=== PATIENT | female | born 1965 | race Caucasian/White ===

== ENCOUNTER 2017-06-24 10:42 | Inpatient (IN) | payer SELFPAY ==
[~2017-06-24] VITALS: Ht 170.2 cm; Wt 79.1 kg
[2017-06-24] VITALS (20 sets, daily range): BP systolic 59–153; BP diastolic 35–94; PULSE 58–107; RESP 16–20; TEMP 99–99.8; O2SAT 97–100
[~2017-06-24 10:42] MED LIST: ATROPINE SULFATE 1 MG/10 ML SYRINGE IV ONE; CALCIUM CHLORIDE 10% SOLN 1 GRAM/10 ML SYR IV ONE; EPINEPHrine HCL (1:10,000) 1 MG/10 ML SYRINGE IV ONE; MAGNESIUM SULFATE 40 MEQ/10 ML VIAL IV ONE; NALOXONE HCL 4 MG/10 ML MDV IV ONE; NOREPINEPHRINE 4 MG/4 ML AMP IV ONE
[2017-06-24] MEDS ORDERED: SUCCINYLCHOLINE CHLORIDE 200 MG/10 ML VIAL ONE (10:54)
[2017-06-24] MEDS ORDERED: SODIUM CHLORIDE 0.9% FLUSH 5 ML FLUSH IV FLUSH PRN (11:15)
[2017-06-24] MEDS ORDERED: EPINEPHrine HCL (1:1000) 1 MG/ML VIAL ONE (11:29)
[2017-06-24] MEDS ORDERED: TERBUTALINE INJ 1 MG/ML AMP SQ PRN (11:45)
[2017-06-24] MEDS ORDERED: SUCCINYLCHOLINE CHLORIDE 100 MG/5 ML SYRINGE IV PUSH ONE (11:45)
[2017-06-24] MEDS ORDERED: EPINEPHrine (1:1000) INJ 2 MG in DEXTROSE 5% IN WATER INJ 250 ML IV PRN ×2 (11:45)
[2017-06-24] MEDS ORDERED: NOREPINEPHRINE-DEXTROSE DRIP 250 ML IV PRN (11:45)
--- NOTE | 2017-06-24 11:58 | RADRPT ---
EXAM DATE/TIME: 06/24/2017 11:38 [facility] COMPARISON: No previous studies available for comparison. INDICATIONS : ET tube placement. Right central line placement. Full code. MEDICAL HISTORY : Myocardial infarction. SURGICAL HISTORY : Pacemaker. ENCOUNTER: Initial ACUITY: 1 day PAIN SCORE: Non-responsive. LOCATION: Chest FINDINGS: The endotracheal tube appears to be in good position overlying the tracheal air shadow. The tip is at the level of the thoracic aortic arch. There is a right-sided central line in place. There is an NG tube in the stomach. There is no evidence of pneumothorax. The lungs are grossly clear. The heart siz e is mildly enlarged. There is a pacemaker overlying the left chest. The bony structures are grossly intact. CONCLUSION: 1. The endotracheal tube and right central line appear to be in good position. 2. No evidence of pneumothorax. Mitch Liang MD on June 24, 2017 at 11:55 Board Certified Radiologist. This report was verified electronically.
[2017-06-24 12:00] LABS: AUTOMATED NEUTROPHIL # 14.5 TH/MM3 (1.8-7.7); BASOPHIL % 0.2 % (0.0-2.0); EOSINOPHIL # 0.1 TH/MM3 (0-0.4); EOSINOPHIL % 0.4 % (0.0-4.0); HEMO FLAGS DIFF FINAL; LYMPH % 23.4 % (9.0-44.0); LYMPHOCYTE # 4.6 TH/MM3 (1.0-4.8); MEAN CELL VOLUME 96.3 FL (80.0-100.0); MEAN CORPUSCULAR HEMOGLOBIN 30.6 PG (27.0-34.0); MEAN CORPUSCULAR HGB CONC 31.8 % (32.0-36.0); MONO % 1.9 % (0.0-8.0); NEUT % 74.1 % (16.0-70.0); PLATELET COUNT 341 TH/MM3 (150-450); RED BLOOD COUNT 3.53 MIL/MM3 (4.00-5.30); RED CELL DISTRIBUTION WIDTH 12.5 % (11.6-17.2); WHITE BLOOD COUNT 19.5 TH/MM3 (4.0-11.0)
[2017-06-24 12:09] LABS: BLOOD GAS BASE EXCESS -8.5 mmol/L (-2-2); BLOOD GAS CARBOXYHEMOGLOBIN 0.7 % (0-4); BLOOD GAS HCO3 18 mmol/L (22-26); BLOOD GAS METHEMOGLOBIN 0.8 % (0-2); BLOOD GAS O2 HGB SATURATION 98 % (90-100); BLOOD GAS PCO2 47 mmHg (38-42); BLOOD GAS PO2 183 mmHG (61-120); BLOOD GAS TOTAL HGB 11.4 G/DL (12.0-16.0); TEMP CORR TO 98.6
[2017-06-24 12:10] LABS: CRITICAL VALUE YES; DRAW SITE LT RADIAL; FIO2 100 %; OXYGEN DEVICE VENTILATOR; VENT SETTINGS PRVC/AC
[2017-06-24 12:11] LABS: APTT (PATIENT) 21.2 SEC (24.3-30.1); PROTHROMBIN TIME - PATIENT 11.4 SEC (9.8-11.6)
[2017-06-24 12:11] LABS: NUMBER OF ARTERIAL PUNCTURES 1; STAT NO; ULNAR PULSE PRESENT
[2017-06-24] MEDS ORDERED: VANCOMYCIN INJ 1,250 MG in SODIUM CHLOR 0.9% 250 ML INJ 250 ML IV ONE (12:15)
[2017-06-24] MEDS ORDERED: PIPERACIL-TAZO 3.375 GM PREMIX 50 ML IV ONE (12:15)
[2017-06-24 12:36] LABS: ACETAMINOPHEN 3.3 MCG/ML (10.0-30.0); ALCOHOL LESS THAN 3 MG/DL (0-5); ALKALINE PHOSPHATASE 131 U/L (45-117); ALT (GPT) 151 U/L (10-53); ANION GAP 18 MEQ/L (5-15); AST (GOT) 294 U/L (15-37); BICARBONATE 16.7 MEQ/L (21.0-32.0); BLOOD UREA NITROGEN 18 MG/DL (7-18); CHLORIDE 108 MEQ/L (98-107); CREATINE KINASE 256 U/L (26-192); GLOMERULAR FILTRATION RATE 37 ML/MIN (>89); POTASSIUM 4.1 MEQ/L (3.5-5.1); SODIUM (NA) 143 MEQ/L (136-145); TOTAL BILIRUBIN ADULT 0.3 MG/DL (0.2-1.0)
[2017-06-24 13:05] LABS: CKMB 4.4 NG/ML (0.5-3.6)
--- NOTE | 2017-06-24 13:12 | RADRPT ---
EXAM DATE/TIME: 06/24/2017 12:48 [facility] COMPARISON: No previous studies available for comparison. INDICATIONS : Unresponsive status post seizure. RADIATION DOSE: 56.35 CTDIvol (mGy) MEDICAL HISTORY : Non-responsive. SURGICAL HISTORY : Non-responsive. ENCOUNTER: Initial ACUITY: 1 day PAIN SCALE: Non-responsive LOCATION: cranial TECHNIQUE: Multiple contiguous axial images were obtained of the head. Using automated exposure control and adj ustment of the mA and/or kV according to patient size, radiation dose was kept as low as reasonably a chievable to obtain optimal diagnostic quality images. DICOM format image data is available electro nically for review and comparison. FINDINGS: CEREBRUM: Encephalomalacia right parietal lobe with some cortical laminar necrosis consistent with old infarct. The ventricles are normal for age. No evidence of midline shift, mass lesion, hemorrhage or acute i nfarction. No extra-axial fluid collections are seen. POSTERIOR FOSSA: The cerebellum and brainstem are intact. The 4th ventricle is midline. The cerebellopontine angle i s unremarkable. EXTRACRANIAL: The visualized portion of the orbits is intact. SKULL: The calvaria is intact. No evidence of skull fracture. CONCLUSION: 1. 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 2. No acute hemorrhage. Rosas Salmon MD on June 24, 2017 at 13:05 Board Certified Radiologist. This report was verified electronically.
--- NOTE | 2017-06-24 13:31 | PD ---
HPI Chief Complaint: Code Blue Time Seen by Provider: 11:08 Travel History International Travel<30 days: No Contact w/Intl Traveler<30days: No History of Present Illness HPI Patient is a female in her 50s brought in by EMS in full cardiac arrest, CPR in progress. Per EMS, they were called for a seizure. Patient has history of seizures. EMS states they gave 2 mg of Ativan to stop the active seizure at this time, the patient went into cardiac arrest. ACLS was initiated by EMS. She received 3 doses of epinephrine and a dose of bicarbonate by EMS prior to arrival, with no change in her condition. EMS states they began ACLS protocol around 1010, with arrival to the emergency department around 1040. [facility] Past Medical History Medical History: Unable to Obtain Tetanus Vaccination: Unknown ?: Unknown Past Surgical History Surgical History: Unable to Obtain Social History Tobacco Use: No Allergies-Medications (Allergen,Severity, Reaction): Coded Allergies: No Allergy Information Available (Unverified , 06/24/17) Patient unresponsive Review of Systems ROS Limitations: Unresponsive Physical Exam Exam Limitations: Clinical Condition Narrative GENERAL: Unresponsive SKIN: Focused skin assessment warm/dry. No signs of trauma. HEAD: Atraumatic. Normocephalic. EYES: Pupils fixed and dilated. ENT: Mucous membranes pink and moist. NECK: Trachea midline. No JVD. CARDIOVASCULAR: Absent pulse RESPIRATORY: No accessory muscle use. Clear to auscultation. Breath sounds equal bilaterally. GASTROINTESTINAL: Abdomen soft, nondistended. MUSCULOSKELETAL: No obvious deformities. No clubbing. No cyanosis. No edema. Data Data Last Documented VS Vital Signs Date Time Temp Pulse Resp B/P (MAP) Pulse Ox O2 Delivery O2 Flow Rate FiO2 06/24/17 13:15 94 16 144/89 (107) 100 Ventilator 90 06/24/17 12:14 99.6 Orders Orders Succinylcholine Inj (Quelicin Inj) (06/24/17 10:54) Electrocardiogram (06/24/17 11:08) Ammonia (06/24/17 11:08) Complete Blood Count With Diff (06/24/17 11:08) Comprehensive Metabolic Panel (06/24/17 11:08) Creatine Kinase (Cpk) (06/24/17 11:08) Prothrombin Time / Inr (Pt) (06/24/17 11:08) Act Partial Throm Time (Ptt) (06/24/17 11:08) Troponin I (06/24/17 11:08) Urinalysis - C+S If Indicated (06/24/17 11:08) Lactic Acid Sepsis Protocol (06/24/17 11:08) Blood Culture (06/24/17 11:08) Chest, Single Ap (06/24/17 11:08) Ct Brain W/O Iv Contrast(Rout) (06/24/17 11:08) Blood Glucose (06/24/17 11:08) Ecg Monitoring (06/24/17 11:08) Iv Access Insert/Monitor (06/24/17 11:08) Oximetry (06/24/17 11:08) Urinary Catheter Insert/Apply (06/24/17 11:08) Sodium Chloride 0.9% Flush (Ns Flush) (06/24/17 11:15) Drug Screen, Random Urine (06/24/17 11:08) Alcohol (Ethanol) (06/24/17 11:08) Tylenol (Acetaminophen) (06/24/17 11:08) Salicylates (Aspirin) (06/24/17 11:08) Epinephrine (1:1000) Inj (Adrenalin (1:1 (06/24/17 11:29) Succinylcholine Inj (Quelicin Inj) (06/24/17 11:45) ^ Infusion (06/24/17 ) Norepinephrine-Dextrose Drip (Levophed-D (06/24/17 11:45) Terbutaline Inj (Brethine Inj) (06/24/17 11:45) Epinephrine (1:1000) Inj (Adrenalin (1:1 (06/24/17 11:45) Piperacil-Tazo 3.375 Gm Premix (Zosyn 3. (06/24/17 12:15) Vancomycin Inj (Vancomycin Inj) (06/24/17 12:15) Arterial Blood Gas (Abg) (06/24/17 12:00) CKMB (06/24/17 11:40) CKMB% (06/24/17 11:40) Admit Order (Ed Use Only) (06/24/17 ) Labs Laboratory Tests Test 06/24/17 11:40 06/24/17 12:00 06/24/17 13:07 White Blood Count 19.5 TH/MM3 Red Blood Count 3.53 MIL/MM3 Hemoglobin 10.8 GM/DL Hematocrit 34.0 % Mean Corpuscular Volume 96.3 FL Mean Corpuscular Hemoglobin 30.6 PG Mean Corpuscular Hemoglobin Concent 31.8 % Red Cell Distribution Width 12.5 % Platelet Count 341 TH/MM3 Mean Platelet Volume 6.8 FL Neutrophils (%) (Auto) 74.1 % Lymphocytes (%) (Auto) 23.4 % Monocytes (%) (Auto) 1.9 % Eosinophils (%) (Auto) 0.4 % Basophils (%) (Auto) 0.2 % Neutrophils # (Auto) 14.5 TH/MM3 Lymphocytes # (Auto) 4.6 TH/MM3 Monocytes # (Auto) 0.4 TH/MM3 Eosinophils # (Auto) 0.1 TH/MM3 Basophils # (Auto) 0.0 TH/MM3 CBC Comment DIFF FINAL Differential Comment Prothrombin Time 11.4 SEC Prothromb Time International Ratio 1.0 RATIO Activated Partial Thromboplast Time 21.2 SEC Blood Urea Nitrogen 18 MG/DL Creatinine 1.24 MG/DL Random Glucose 411 MG/DL Total Protein 5.7 GM/DL Albumin 2.4 GM/DL Calcium Level 9.0 MG/DL Alkaline Phosphatase 131 U/L Aspartate Amino Transf (AST/SGOT) 294 U/L Alanine Aminotransferase (ALT/SGPT) 151 U/L Total Bilirubin 0.3 MG/DL Sodium Level 143 MEQ/L Potassium Level 4.1 MEQ/L Chloride Level 108 MEQ/L Carbon Dioxide Level 16.7 MEQ/L Anion Gap 18 MEQ/L Estimat Glomerular Filtration Rate 37 ML/MIN Lactic Acid Level 10.9 mmol/L Ammonia 40 MCMOL/L Total Creatine Kinase 256 U/L Creatine Kinase MB 4.4 NG/ML Creatine Kinase MB % 1.7 % Troponin I 0.04 NG/ML Salicylates Level LESS THAN 1.7 MG/DL Acetaminophen Level 3.3 MCG/ML Ethyl Alcohol Level LESS THAN 3 MG/DL Blood Gas Puncture Site LT RADIAL Blood Gas Patient Temperature 98.6 Blood Gas HCO3 18 mmol/L Blood Gas Base Excess -8.5 mmol/L Blood Gas Oxygen Saturation 98 % Arterial Blood pH 7.21 Arterial Blood Partial Pressure CO2 47 mmHg Arterial Blood Partial Pressure O2 183 mmHG Arterial Blood Oxygen Content 16.0 Vol % Arterial Blood Carboxyhemoglobin 0.7 % Arterial Blood Methemoglobin 0.8 % Blood Gas Hemoglobin 11.4 G/DL Oxygen Delivery Device VENTILATOR Blood Gas Ventilator Setting PRVC/AC Blood Gas Inspired Oxygen 100 % Urine Color YELLOW Urine Turbidity HAZY Urine pH 6.0 Urine Specific [place] 1.018 Urine Protein 300 mg/dL Urine Glucose (UA) 1000 mg/dL Urine Ketones NEG mg/dL Urine Occult Blood MOD Urine Nitrite NEG Urine Bilirubin NEG Urine Urobilinogen LESS THAN 2.0 MG/DL Urine Leukocyte Esterase NEG Urine RBC 4-9 /hpf Urine WBC 0-2 /hpf Urine Squamous Epithelial Cells 6-8 /hpf Urine Amorphous Sediment MANY Urine Bacteria FEW /hpf Microscopic Urinalysis Comment CATH-CULTURE IND Urine Opiates Screen POS Urine Barbiturates Screen NEG Urine Amphetamines Screen POS Urine Benzodiazepines Screen NEG Urine Cocaine Screen NEG Urine Cannabinoids Screen NEG MDM Medical Decision Making Medical Screen Exam Complete: Yes Emergency Medical Condition: Yes Interpretation(s) ECG shows right bundle branch block Differential Diagnosis Electrolyte abnormality versus sepsis versus CO versus drug abuse versus stroke Narrative Course Patient is a female in her 50s brought in by EMS in cardiac arrest. On arrival , patient was transferred to the [facility], ACLS protocols were continued. CPR was continued. Patient was given an additional 3 doses of epinephrine. She was given a dose of magnesium as well as calcium. After this, a pulse was palpated. Decision made to intubate the patient and change at the [facility] for an ET tube. After intubation, her blood pressure started to drop again, she was given an additional dose of epinephrine and started on the Levaquin said drip. Intubation was confirmed by x-ray with tube in place. X-ray shows no evidence of pneumonia. Right internal jugular central line was placed. Patient was also started on an epinephrine drip. Labs show an elevated lactic acid at 10.9 as well as a white blood cell count of 19.5. Patient was started on broad-spectrum antibiotics. CT head performed. Patient began to stabilize and the epinephrine drip was weaned off. Patient admitted to the ICU for further management. Critical Care Narrative Aggregate critical care time was 45 minutes. Time to perform other separately billable procedures was not included in the critical care time. My time did not include minutes spent treating any other patients simultaneously or on activities that did not directly contribute to the patient's treatment. The services I provided to this patient were to treat and/or prevent clinically significant deterioration that could result in: serious illness or I provided critical care services requiring my management, as noted below: Chart data review, documentation time, medication orders and management, vital sign assessments/reviewing monitor data, ordering and reviewing lab tests, ordering and interpreting/reviewing x-rays and diagnostic studies, care of the patient and discussion of the patient with the admitting physicians. Procedures Procedure Narrative After the risks and benefits were discussed the following procedure was performed: INTUBATION: The patient was put in optimal position for the procedure. Rapid sequence intubation was initiated by me using 100 milligrams of succinylcholine IV. The patient was intubated with a 7.5 cuffed endotracheal tube. Tube placement was confirmed by visualization of the tube and balloon passing through the cords, capnometry and subsequent chest x-ray. Breath sounds were equal and well aerated bilaterally postintubation. No breath sounds over stomach. Patient tolerated procedure well. CENTRAL VENOUS LINE: The site was prepped with Betadine and sterilely draped. It was infiltrated with 1% lidocaine plain. The deep vein was cannulated using normal Seldinger technique. A triple lumen central line was placed in the right internal jugular vein site and secured with simple interrupted suture. The site was sterilely dressed. The patient tolerated the procedure well. Diagnosis Primary Impression: Cardiac arrest Additional Impressions: Sepsis Qualified Codes: A41.9 - Sepsis, unspecified organism Lactic acidosis Admitting Information Admitting Physician Requests: Admit Rosalinda Lacy MD Jun 24, 2017 13:31
[2017-06-24 13:48] LABS: LACTIC ACID GHOST NOT REPORTABLE
[2017-06-24] MEDS ORDERED: MAGNESIUM SULFATE INJ 2 GM in SODIUM CHLORIDE 0.9% INJ 96 ML IV PRN (14:00)
[2017-06-24] MEDS ORDERED: RESP: ALBUTEROL 2.5 MG/3 ML NEB (PRN) INH (14:00)
[2017-06-24] MEDS ORDERED: MAGNESIUM HYDROXIDE SUSP 30 ML CUP PO PRN (14:00)
[2017-06-24] MEDS ORDERED: SODIUM PHOSPHATE INJ 30 MMOL in SODIUM CHLOR 0.9% 250 ML INJ 240 ML IV PRN (14:00)
[2017-06-24] MEDS ORDERED: POTASSIUM PHOSPHATE INJ 30 MMOL in SODIUM CHLOR 0.9% 250 ML INJ 250 ML IV PRN (14:00)
[2017-06-24] MEDS ORDERED: POTASSIUM CHLOR 20 MEQ PREMIX 100 ML IV PRN (14:00)
[2017-06-24] MEDS ORDERED: POTASSIUM CHLOR 40 MEQ PREMIX 100 ML IV PRN ×2 (14:00)
[2017-06-24] MEDS ORDERED: MAGNESIUM SULFATE INJ 4 GM in SODIUM CHLORIDE 0.9% INJ 92 ML IV PRN (14:00)
[2017-06-24] MEDS ORDERED: SODIUM CHLORIDE 0.9% FLUSH 10 ML FLUSH IV FLUSH PRN (14:00)
[2017-06-24] MEDS ORDERED: INSULIN REGULAR (IV INFUSION) 100 UNITS in SODIUM CHLORIDE 0.9% INJ 99 ML IV PRN (14:00)
[2017-06-24] MEDS ORDERED: POTASSIUM PHOSPHATE MONOBASIC 500 MG TAB PO PRN (14:00)
[2017-06-24] MEDS ORDERED: MISCELLANEOUS NURSING INFORMATION XX SCH (14:00)
[2017-06-24] MEDS ORDERED: SENNOSIDES 8.6 MG TAB PO PRN (14:00)
[2017-06-24] MEDS ORDERED: DEXTROSE 50% IN WATER 50 ML VIAL(D50) IV PUSH PRN ×2 (14:00→16:15)
[2017-06-24] MEDS ORDERED: CHLORHEXIDINE GLUCONATE 2 % 1 PACK (2 CLOTHS) TOP PRN (14:00)
[2017-06-24] MEDS ORDERED: BISACODYL 10 MG SUPP RECTAL PRN (14:00)
[2017-06-24] MEDS ORDERED: PROPOFOL 1000 MG/100 ML INJ 100 ML IV PRN (14:00)
[2017-06-24] MEDS: SODIUM CHLOR 0.9% 1000 ML INJ 1,000 ML IV SCH (14:00)
[2017-06-24] MEDS ORDERED: POTASSIUM PHOSPHATE MONOBASIC 500 MG TAB PO/TUBE PRN (14:00)
[2017-06-24] MEDS ORDERED: MISC INFORMATION OTHER ONE (14:00)
[2017-06-24] MEDS ORDERED: MAGNESIUM OXIDE 400 MG TAB PO PRN (14:00)
[2017-06-24] MEDS ORDERED: ONDANSETRON HCL 4 MG/2 ML VIAL IV PUSH PRN (14:00)
[2017-06-24] MEDS ORDERED: POTASSIUM CHLORIDE 25 MEQ EFFERVESCENT TAB PO PRN (14:00)
[2017-06-24] MEDS ORDERED: LACTULOSE SYRUP 20 GM/30 ML CUP PO PRN (14:00)
[2017-06-24 14:04] LABS: BLOOD, URINE MOD (NEG); GLUCOSE,URINE 1000 mg/dL (NEG); KETONE, URINE NEG (NEG); NITRITE,URINE NEG (NEG); URINE COLOR YELLOW (YELLW/STRAW)
--- NOTE | 2017-06-24 14:08 | HHI.HP ---
[facility] Service Critical Care Medicine Primary Care Physician unknown Admission Diagnosis Post cardiac arrest Diagnosis: (1) Elevated transaminase level Diagnosis: Principal (2) Hyperglycemia Diagnosis: Principal (3) Anemia Diagnosis: Principal (4) Leukocytosis Diagnosis: Principal (5) Seizure disorder Diagnosis: Principal (6) History of CVA (cerebrovascular accident) Diagnosis: Principal (7) Right bundle branch block Diagnosis: Principal (8) Cardiac arrest Diagnosis: Principal (9) Lactic acidosis Diagnosis: Principal (10) Sepsis Diagnosis: Principal Chief Complaint: Presented to [facility] status post 50 minute code Travel History International Travel<30 Days: No Contact w/Intl Traveler <30 Da: No Traveled to Known Affected Are: No Sepsis Criteria SIRS Criteria (2 or more): Heart rate over 90, WBC > 10280, < 4000 or > 10% bands Sepsis Criteria (SIRS+source): Infect source susp/known Severe Sepsis (+one): Lactate >2 Septic Shock Criteria: Lactic acid >=4 History of Present Illness Sensation to [facility] female middle-aged unknown name. She is brought into [facility] full cardiac arrest with ongoing CPR . Noted that information is obtained from ER physician. No family is available. Per EMS, records, they were called this patient's dressings due to a seizure of unknown duration.. Patient has history of seizures. EMS states they gave 2 mg of lorazepam to stop the active seizure at this time. Unfortunately, the patient went into cardiac arrest. ACLS was initiated by EMS. She received 3 doses of epinephrine and a dose of bicarbonate by EMS prior to arrival, with no change in her condition. EMS states they began ACLS protocol around 1010, with arrival to the emergency department around 1040. Patient received an additional 3 rounds of epinephrine and was intubated in the ED. ROSC at [address] 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 Lactic acid elevated 10.9. Troponin 0.04. Orbits 19,000. Blood sugar was greater than 400 Elevated transaminases. Patient is currently extending.. Pupils are fixed and dilated at 7 mm bilaterally. X-ray, notice implantable device. Due to likely multiple comorbid conditions patient is not candidate for code cool Review of Systems ROS Limitations: Intubated Past Family Social History Allergies: Coded Allergies: No Allergy Information Available (Unverified , 06/24/17) Patient unresponsive Past Medical History Seizure disorder Remainders unknown/unavailable Past Surgical History Implantable cardiac device unknown type Remainders unknown Reported Medications Unknown Active Ordered Medications Unknown Family History Unknown Social History Unknown Physical Exam Vital Signs Vital Signs Date Time Temp Pulse Resp B/P (MAP) Pulse Ox O2 Delivery O2 Flow Rate FiO2 06/24/17 12:24 17 100 Ventilator 90 06/24/17 12:15 94 144/89 06/24/17 12:15 94 144/89 06/24/17 12:14 74 16 100 Ventilator 100 06/24/17 12:14 99.6 74 16 134/62 (86) 100 Ventilator 90 06/24/17 11:45 66 17 102/58 (73) 100 Ventilator 100 06/24/17 11:34 74 74/45 06/24/17 11:30 58 17 93/55 (68) 100 Ventilator 100 06/24/17 11:15 74 17 74/49 (57) 97 Ventilator 100 06/24/17 11:00 99.6 60 16 59/35 (43) 98 Ventilator 100 06/24/17 11:00 99 100 06/24/17 10:59 60 59/35 Physical Exam GENERAL: This is a middle-aged female, critically ill currently orotracheally intubated SKIN: Warm and dry. Tattoo on right lateral aspect of right leg. HEAD: Atraumatic. Normocephalic. EYES: Pupils equal and round about 7 mm bilaterally and nonreactive. No scleral icterus. No injection or drainage. ENT: No nasal bleeding or discharge. Mucous membranes pink and moist. NECK: Trachea midline. No JVD. CARDIOVASCULAR: Regular rate and rhythm. S1, S2. No S4. RESPIRATORY: No accessory muscle use. Clear to auscultation. Breath sounds equal bilaterally. GASTROINTESTINAL: Abdomen soft, non-tender, nondistended. No bowel sounds are appreciated MUSCULOSKELETAL: Extremities without significant peripheral edema. No obvious deformities. NEUROLOGICAL: Pupils of the bowel. No gag. Currently extending right upper extremity only. Does not withdrawal to noxious stimulation. No clonus. Laboratory Laboratory Tests Test 06/24/17 11:40 06/24/17 12:00 06/24/17 13:07 White Blood Count 19.5 Red Blood Count 3.53 Hemoglobin 10.8 Hematocrit 34.0 Mean Corpuscular Volume 96.3 Mean Corpuscular Hemoglobin 30.6 Mean Corpuscular Hemoglobin Concent 31.8 Red Cell Distribution Width 12.5 Platelet Count 341 Mean Platelet Volume 6.8 Neutrophils (%) (Auto) 74.1 Lymphocytes (%) (Auto) 23.4 Monocytes (%) (Auto) 1.9 Eosinophils (%) (Auto) 0.4 Basophils (%) (Auto) 0.2 Neutrophils # (Auto) 14.5 Lymphocytes # (Auto) 4.6 Monocytes # (Auto) 0.4 Eosinophils # (Auto) 0.1 Basophils # (Auto) 0.0 CBC Comment DIFF FINAL Differential Comment Prothrombin Time 11.4 Prothromb Time International Ratio 1.0 Activated Partial Thromboplast Time 21.2 Blood Urea Nitrogen 18 Creatinine 1.24 Random Glucose 411 Total Protein 5.7 Albumin 2.4 Calcium Level 9.0 Alkaline Phosphatase 131 Aspartate Amino Transf (AST/SGOT) 294 Alanine Aminotransferase (ALT/SGPT) 151 Total Bilirubin 0.3 Sodium Level 143 Potassium Level 4.1 Chloride Level 108 Carbon Dioxide Level 16.7 Anion Gap 18 Estimat Glomerular Filtration Rate 37 Lactic Acid Level 10.9 Ammonia 40 Total Creatine Kinase 256 Creatine Kinase MB 4.4 Creatine Kinase MB % 1.7 Troponin I 0.04 Salicylates Level LESS THAN 1.7 Acetaminophen Level 3.3 Ethyl Alcohol Level LESS THAN 3 Blood Gas Puncture Site LT RADIAL Blood Gas Patient Temperature 98.6 Blood Gas HCO3 18 Blood Gas Base Excess -8.5 Blood Gas Oxygen Saturation 98 Arterial Blood pH 7.21 Arterial Blood Partial Pressure CO2 47 Arterial Blood Partial Pressure O2 183 Arterial Blood Oxygen Content 16.0 Arterial Blood Carboxyhemoglobin 0.7 Arterial Blood Methemoglobin 0.8 Blood Gas Hemoglobin 11.4 Oxygen Delivery Device VENTILATOR Blood Gas Ventilator Setting PRVC/AC Blood Gas Inspired Oxygen 100 Date/Time Source Procedure Growth Status 06/24/17 11:40 Blood Peripheral Aerobic Blood Culture Pending Received 06/24/17 11:40 Blood Peripheral Anaerobic Blood Culture Pending Received Result Diagram: 06/24/17 1140 06/24/17 1140 Imaging Last Impressions Head CT 06/24/17 1108 Signed Impressions: Service Date/Time: Saturday, June 24, 2017 12:48 - CONCLUSION: 1. 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 2. No acute hemorrhage. Rosas Salmon MD Chest X-Ray 06/24/17 1108 Signed Impressions: Service Date/Time: Saturday, June 24, 2017 11:38 - CONCLUSION: 1. The endotracheal tube and right central line appear to be in good position. 2. No evidence of pneumothorax. Mitch Liang MD Caprini VTE Risk Assessment Caprini VTE Risk Assessment: Mod/High Risk (score >= 2) Caprini Risk Assessment Model Point Value = 1 Point Value = 2 Point Value = 3 Point Value = 5 Age 41-60 Minor surgery BMI > 25 kg/m2 Swollen legs Varicose veins or History of unexplained or recurrent spontaneous Oral contraceptives or hormone replacement Sepsis (< 1 month) Serious lung disease, including pneumonia (< 1 month) Abnormal pulmonary function Acute myocardial infarction Congestive heart failure (< 1 month) History of inflammatory bowel disease Medical patient at bed rest Age 61-74 Arthroscopic surgery Major open surgery (> 45 min) Laparoscopic surgery (> 45 min) Malignancy Confined to bed (> 72 hours) Immobilizing plaster cast Central venous access Age >= 75 History of VTE Family history of VTE Factor V Leiden Prothrombin [id number] Lupus anticoagulant Anticardiolipin antibodies Elevated serum homocysteine Heparin-induced thrombocytopenia Other congenital or acquired thrombophilia Stroke (< 1 month) Elective arthroplasty Hip, pelvis, or leg fracture Acute spinal cord injury (< 1 month) Prophylaxis Regimen Total Risk Factor Score Risk Level Prophylaxis Regimen 0-1 Low Early ambulation 2 Moderate Order ONE of the following: *Sequential Compression Device (SCD) *Heparin 5000 units SQ BID 3-4 Higher Order ONE of the following medications: *Heparin 5000 units SQ TID *Enoxaparin/Lovenox 40 mg SQ daily (WT < 150 kg, CrCl > 30 mL/min) *Enoxaparin/Lovenox 30 mg SQ daily (WT < 150 kg, CrCl > 10-29 mL/min) *Enoxaparin/Lovenox 30 mg SQ BID (WT < 150 kg, CrCl > 30 mL/min) AND/OR *Sequential Compression Device (SCD) 5 or more Highest Order ONE of the following medications: *Heparin 5000 units SQ TID (Preferred with Epidurals) *Enoxaparin/Lovenox 40 mg SQ daily (WT < 150 kg, CrCl > 30 mL/min) *Enoxaparin/Lovenox 30 mg SQ daily (WT < 150 kg, CrCl > 10-29 mL/min) *Enoxaparin/Lovenox 30 mg SQ BID (WT < 150 kg, CrCl > 30 mL/min) AND *Sequential Compression Device (SCD) Assessment and Plan Assessment and Plan Neuro/Psych: Likely anoxic brain injury Seizure disorder NOS Hx right parietal CVA Written for propofol/fentanyl drips for sedation/analgesia while intubated Goal of RA SS -[address] brain revealed old right parietal CVA. Loaded with levetiracetam 1 g followed by 500 mg IV twice a day Check Dilantin/valproic acid levels - unknown if patient taking EEG ordered. In process CV: [facility] Severe sepsis History of AICD placement Lactic acidosis QTC prolongation Right bundle branch block single chamber AICD CHF - systolic chronic EF 15% Etiology of cardiac arrest unclear. Given 2 mg lorazepam followed by code Due to 50 minute length of code not candidate for code cool Currently off all vasopressors. On normal saline at 84 cc an hour. Goal to maintain mean artery pressure greater than 65 Serial lactates until clear. Currently 10.9. Serial troponins. Initially 0.04 2-D echo ordered EKG reveals normal sinus rhythm 88. Right bundle branch block. QTC 509 Resp: Acute respiratory failure [facility] 16/520/ Ventilator bundle Albuterol/ipratropium aerosols every 6 hours albuterol aerosols every 2 hours. Dyspnea Spontaneous. Breathing trials when clinically indicated Very low likelihood PE. Follow-up on a.m. x-ray GI: Transaminitis OGT to LIWS Famotidine for GI prophylaxis Docusate sodium/senna 1 tablet twice a day for bowel regimen CPK, hepatitis panel pending Abdominal ultrasound ordered : Fernandez catheter is indicated for accurate I's and O's in a critically ill patient Endo: Hyperglycemia Insulin drip without reasonable one. Goal to maintain euglycemia Check hemoglobin A1c Renal: Creatinine currently 1.2. Monitor urine output Accurate I's and O's Recheck BMP in a.m. Heme: Leukocytosis Anemia Monitor CBC and coags daily. Follow trends Does not meet transfusion thresholds at this time ID: Received vancomycin and piperacillin/tazobactam in ED. We'll continue piperacillin/tazobactam Blood cultures 2 no growth today. Urine culture, sputum pending MSK: PT evaluate and treat FEN: Replace electrolytes as clinically indicated Access - Utilize right IJ CVL day number 1 placed 06/24 Prophylaxis - GI - famotidine - DVT - SCD/heparin subcutaneous Critical Care: The total critical care time was 35 minutes. Time to perform other separately billable procedures was not included in the critical care time. Code Status Full code Discussed Condition With Dr. Joyce/ED physician. No family is available Plan discussed and all questions answered. Problem Qualifiers (1) Anemia: Qualified Codes: D64.9 - Anemia, unspecified (2) Leukocytosis: Qualified Codes: D72.829 - Elevated white blood cell count, unspecified (3) Sepsis: Qualified Codes: A41.9 - Sepsis, unspecified organism Yoandy Greene MD Jun 24, 2017 14:08
[2017-06-24] MEDS ORDERED: levETIRAcetam 1000 MG INJ 100 ML IV ONE (14:15)
[2017-06-24] MEDS ORDERED: levETIRAcetam INJ 500 MG in SODIUM CHLORIDE 0.9% INJ 100 ML IV ONE (14:15)
[2017-06-24 14:27] LABS: WBC, URINE 0-2 /hpf (0-5)
[2017-06-24 14:28] LABS: BACTERIA, URINE FEW /hpf; COMMENT (UR) CATH-CULTURE IND; CULTURE IF INDICATED CATH CULTURE IND
[2017-06-24] MEDS ORDERED: SODIUM CHLOR 0.45% 500 ML INJ 500 ML IV ONE (14:30)
[2017-06-24] MEDS ORDERED: SODIUM CHLORID 0.9% 500 ML INJ 500 ML IV ONE (14:30)
[2017-06-24] MEDS ORDERED: Vancomycin Consult Pharmacy 1 EA OTHER SCH (15:00)
[2017-06-24 15:14] LABS: BLOOD GAS BASE EXCESS -1.3 mmol/L (-2-2); BLOOD GAS CARBOXYHEMOGLOBIN 0.8 % (0-4); BLOOD GAS HCO3 23 mmol/L (22-26); BLOOD GAS METHEMOGLOBIN 0.7 % (0-2); BLOOD GAS O2 HGB SATURATION 99 % (90-100); BLOOD GAS OXYGEN CONTENT 17.7 Vol % (12.0-20.0); BLOOD GAS PCO2 39 mmHg (38-42); BLOOD GAS PO2 422 mmHG (61-120); CRITICAL VALUE NO; TEMP CORR TO 98.6
[2017-06-24 15:15] LABS: DRAW SITE LT RADIAL; FIO2 100 %; NUMBER OF ARTERIAL PUNCTURES 1; OXYGEN DEVICE PRVC/AC; STAT NO; ULNAR PULSE PRESENT
[2017-06-24] MEDS: RESP: ALBUTEROL 2.5 MG/IPRATROPIUM 0.5 MG NEB (SCH) INH ×2 (15:37→20:38)
[2017-06-24] MEDS ORDERED: GLUCAGON 1 MG/ML VIAL OTHER PRN (16:15)
[2017-06-24] MEDS: HEPARIN SODIUM - SQ 10,000 UNITS/ML VIAL SQ SCH (16:34)
[2017-06-24] MEDS: PIPERACIL-TAZO 4.5 GM PREMIX 100 ML IV SCH ×2 (16:34→19:49)
[2017-06-24] MEDS: fentaNYL DRIP 250 ML IV PRN (16:35)
[2017-06-24] MEDS ORDERED: LACTULOSE SYRUP 20 GM/30 ML CUP PO ONE (17:15)
[2017-06-24 17:57] LABS: AMYLASE 346 U/L (25-115)
--- NOTE | 2017-06-24 17:57 | RADRPT ---
EXAM DATE/TIME: 06/24/2017 16:59 [facility] COMPARISON: No previous studies available for comparison. INDICATIONS : Elevated lab values. MEDICAL HISTORY : Unable to obtain. SURGICAL HISTORY : Unable to obtain. ENCOUNTER: Initial ACUITY: 1 day PAIN SCORE: Nonresponsive. LOCATION: Abdomen. MEASUREMENTS: LIVER: 18.0 cm length COMMON DUCT: 5 mm RIGHT KIDNEY: 13.1 x 4.8 x 4.9 cm LEFT KIDNEY: 11.9 x 5.2 x 6.0 cm SPLEEN: 12.9 cm length AORTA: 2.1cm maximal FINDINGS: LIVER: Liver is prominent measuring up to 18 cm in diameter with no focal mass or ductal dilatation. COMMON DUCT: No intraluminal mass or stone visualized. GALLBLADDER: The gallbladder is normal in size and shape with wall thickening measuring up to approximately 1 cm. There is a small amount of pericholecystic fluid. No gallstones are identified. PANCREAS: The visualized portions are within normal limits. RIGHT KIDNEY: No hydronephrosis or mass. There is an 8 x 5 x 4 mm nonobstructing right renal calculus. LEFT KIDNEY: No hydronephrosis, stone or mass. SPLEEN: No focal lesion. AORTA: Non aneurysmal. IVC: Within normal limits. CONCLUSION: 1. Gallbladder wall thickening and small amount of pericholecystic fluid with no evidence of cholelit hiasis. The findings are nonspecific but could indicate possible acalculus cholecystitis. 2. The liver is enlarged with no focal abnormality. 3. Nonobstructing right renal calculus. Damián Purdy MD on June 24, 2017 at 17:53 Board Certified Radiologist. This report was verified electronically.
--- NOTE | 2017-06-24 17:58 | RADRPT ---
EXAM DATE/TIME: 06/24/2017 17:17 [facility] COMPARISON: No previous studies available for comparison. INDICATIONS : Bilateral lower extremity edema. MEDICAL HISTORY : Unable to obtain. SURGICAL HISTORY : Unable to obtain. ENCOUNTER: Initial ACUITY: 1 day PAIN SCORE: Non-responsive LOCATION: Bilateral legs. TECHNIQUE: Venous ultrasound of the left and right leg was performed from the inguinal ligament to the proximal calf. Real-time, color Doppler and spectral tracing, compression and augmentation techniques were us ed. FINDINGS: RIGHT LEG: There is normal compressibility of the deep venous system from the inguinal region to the proximal ca lf. No echogenic clot is seen in the lumen of the common femoral, femoral, popliteal, and posterior tibial veins. There is a normal response of the venous system to proximal and distal augmentation an d respiration. LEFT LEG: There is normal compressibility of the deep venous system from the inguinal region to the proximal ca lf. No echogenic clot is seen in the lumen of the common femoral, femoral, popliteal, and posterior tibial veins. There is a normal response of the venous system to proximal and distal augmentation an d respiration. CONCLUSION: Negative exam with no evidence of deep venous thrombosis. Damián Purdy MD on June 24, 2017 at 17:56 Board Certified Radiologist. This report was verified electronically.
[2017-06-24] MEDS: FAMOTIDINE 20 MG/2 ML VIAL IV PUSH SCH (19:49)
[2017-06-24] MEDS: SODIUM CHLORIDE 0.9% FLUSH 10 ML FLUSH IV FLUSH SCH (19:49)
[2017-06-24] MEDS: INSULIN NovoLIN REGULAR SUPPLEMENTAL SCALE SQ SCH (19:50)
[2017-06-24] MEDS: DOCUSATE SODIUM 50 MG/SENNA 8.6 MG TAB PO SCH (19:50)
[2017-06-24] MEDS: CHLORHEXIDINE 0.12% (ORAL KIT) 15 ML CUP MT SCH (19:50)
[2017-06-24 22:13] LABS: HEMOGLOBIN A1a 1.1 %; HEMOGLOBIN A1b 1.9 %; HEMOGLOBIN Ao 81.2 %; HEMOGLOBIN LA1C 3.9 %; HEMOGLOBIN P3 4.6 %
[2017-06-25] VITALS (26 sets, daily range): BP systolic 149–165; BP diastolic 90–98; PULSE 100–126; RESP 16; TEMP 98.1–101.3; O2SAT 34–100
[2017-06-25] MEDS: SODIUM CHLOR 0.9% 1000 ML INJ 1,000 ML IV SCH (01:55)
[2017-06-25] MEDS: ARTIFICIAL TEARS OPTH SOLN 15 ML BTL EACH EYE SCH ×4 (02:08→17:05)
[2017-06-25] MEDS: HEPARIN SODIUM - SQ 10,000 UNITS/ML VIAL SQ SCH ×2 (02:09→13:17)
[2017-06-25] MEDS: PIPERACIL-TAZO 4.5 GM PREMIX 100 ML IV SCH ×4 (02:13→20:37)
[2017-06-25] MEDS ORDERED: Vancomycin Consult Pharmacy 1 EA OTHER SCH (02:30)
[2017-06-25] MEDS ORDERED: VANCOMYCIN INJ 1,350 MG in SODIUM CHLORID 0.9% 500 ML INJ 500 ML IV SCH (03:00)
[2017-06-25 03:19] LABS: AUTOMATED NEUTROPHIL # 18.8 TH/MM3 (1.8-7.7); BASOPHIL # 0.1 TH/MM3 (0-0.2); BASOPHIL % 0.3 % (0.0-2.0); HEMATOCRIT 36.2 % (35.0-46.0); HEMO FLAGS DIFF FINAL; LYMPH % 3.8 % (9.0-44.0); LYMPHOCYTE # 0.8 TH/MM3 (1.0-4.8); MEAN CELL VOLUME 92.2 FL (80.0-100.0); MEAN CORPUSCULAR HEMOGLOBIN 31.2 PG (27.0-34.0); MEAN CORPUSCULAR HGB CONC 33.8 % (32.0-36.0); MONO % 2.8 % (0.0-8.0); NEUT % 93.1 % (16.0-70.0); PLATELET COUNT 306 TH/MM3 (150-450); RED BLOOD COUNT 3.93 MIL/MM3 (4.00-5.30); RED CELL DISTRIBUTION WIDTH 12.5 % (11.6-17.2); WHITE BLOOD COUNT 20.2 TH/MM3 (4.0-11.0)
[2017-06-25 03:30] LABS: APTT (PATIENT) 25.7 SEC (24.3-30.1); INTERNATIONAL NORMALIZED RATIO 1.1 RATIO
[2017-06-25] MEDS: CHLORHEXIDINE GLUCONATE 2 % 1 PACK (2 CLOTHS) TOP SCH (04:00)
[2017-06-25] MEDS: INSULIN NovoLIN REGULAR SUPPLEMENTAL SCALE SQ SCH ×7 (04:00→23:42)
[2017-06-25 04:11] LABS: ALKALINE PHOSPHATASE 136 U/L (45-117); ALT (GPT) 135 U/L (10-53); ANION GAP 12 MEQ/L (5-15); AST (GOT) 167 U/L (15-37); BICARBONATE 21.2 MEQ/L (21.0-32.0); BLOOD UREA NITROGEN 29 MG/DL (7-18); CHLORIDE 108 MEQ/L (98-107); GLOMERULAR FILTRATION RATE 25 ML/MIN (>89); MAGNESIUM 2.2 MG/DL (1.5-2.5); POTASSIUM 4.4 MEQ/L (3.5-5.1); SODIUM (NA) 141 MEQ/L (136-145); TOTAL BILIRUBIN ADULT 0.5 MG/DL (0.2-1.0)
[2017-06-25] MEDS: RESP: ALBUTEROL 2.5 MG/IPRATROPIUM 0.5 MG NEB (SCH) INH ×4 (04:23→19:31)
--- NOTE | 2017-06-25 05:49 | RADRPT ---
EXAM DATE/TIME: 06/25/2017 03:18 [facility] COMPARISON: CHEST SINGLE AP, June 24, 2017, 11:38. INDICATIONS : Evaluate for pneumonia- Respiratory failure MEDICAL HISTORY : Myocardial infarction. SURGICAL HISTORY : Pacemaker. ENCOUNTER: Subsequent ACUITY: 2 days PAIN SCORE: Non-responsive. LOCATION: Bilateral chest FINDINGS: Right internal jugular catheter tip projects at the cavoatrial junction. ET tube tip is 1.6 cm above the ricky. Gastric tube traverses the [id number]. The lungs are symmetrically aerated and queenie r. No infiltrate seen. The heart is normal size. CONCLUSION: 1. ET tube tip 1.6 cm above the ricky and needs to be withdrawn 1 cm. 2. No infiltrate seen. Christopher Mcknight MD on June 25, 2017 at 5:46 Board Certified Radiologist. This report was verified electronically.
[2017-06-25] MEDS: LACTULOSE SYRUP 20 GM/30 ML CUP PO SCH (08:34)
[2017-06-25] MEDS: CHLORHEXIDINE 0.12% (ORAL KIT) 15 ML CUP MT SCH ×2 (08:34→20:38)
[2017-06-25] MEDS: FAMOTIDINE 20 MG/2 ML VIAL IV PUSH SCH (08:34)
[2017-06-25] MEDS: SODIUM CHLORIDE 0.9% FLUSH 10 ML FLUSH IV FLUSH SCH ×2 (08:34→20:38)
[2017-06-25] MEDS: DOCUSATE SODIUM 50 MG/SENNA 8.6 MG TAB PO SCH ×2 (08:34→20:37)
--- NOTE | 2017-06-25 09:16 | EKG ---
Date Performed: 06/24/2017 Time Performed: 12:26:23 PTAGE: 89 years EKG: Sinus rhythm RIGHT BUNDLE BRANCH BLOCK ABNORMAL ECG NO PREVIOUS TRACING DOCTOR: Marcio Bowman Interpretating Date/Time 06/25/2017 09:14:55
--- NOTE | 2017-06-25 10:58 | HHI.CCPN ---
Subjective Remarks/Hospital Course Initial presentation to [facility] female middle-aged unknown name. She is brought into [facility] full cardiac arrest with ongoing CPR . Noted that information is obtained from ER physician. No family is available. Per EMS, records, they were called this patient's dressings due to a seizure of unknown duration.. Patient has history of seizures. EMS states they gave 2 mg of lorazepam to stop the active seizure at this time. Unfortunately, the patient went into cardiac arrest. ACLS was initiated by EMS. She received 3 doses of epinephrine and a dose of bicarbonate by EMS prior to arrival, with no change in her condition. EMS states they began ACLS protocol around 1010, with arrival to the emergency department around 1040. Patient received an additional 3 rounds of epinephrine and was intubated in the ED. ROSC at [address] 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 Lactic acid elevated 10.9. Troponin 0.04. White blood cell count 19,000. Blood sugar was greater than 400. Elevated transaminases. Patient is currently extending.. Pupils are fixed and dilated at 7 mm bilaterally. X-ray , notice implantable device. Due to likely multiple comorbid conditions patient is not candidate for code cool Subjective 06/25: Tmax 101.3. Currently afebrile. Withdrawals occasionally upper extremity's. Pupils remain around 7 mm and relatively fixed. No gag. Occasionally overbreathing the ventilator. Son will bring in medication list. Real name is Kamini Vela. She is 52. Her son also states that patient has been off medication 3 weeks. Objective Vital Signs Date Time Temp Pulse Resp B/P (MAP) Pulse Ox O2 Delivery O2 Flow Rate FiO2 06/25/17 07:27 100 40 06/25/17 06:00 105 06/25/17 04:00 98.9 154/95 (114) 06/25/17 00:00 16 06/24/17 13:30 Ventilator Intake and Output 06/25/17 06/25/17 06/26/17 08:00 16:00 00:00 Intake Total 200 ml Output Total 150 ml Balance 50 ml Result Diagram: 06/25/17 0310 06/25/17 0310 Other Results Microbiology Date/Time Source Procedure Growth Status 06/24/17 11:40 Blood Peripheral Aerobic Blood Culture Pending Received 06/24/17 11:40 Blood Peripheral Anaerobic Blood Culture Pending Received 06/24/17 16:45 Nasal Aspirate Influenza Types A,B Antigen (GAGAN) - Final NEGATIVE FOR FLU A AND B ANTIGEN.... Complete 06/24/17 15:40 Urine Catheterized Urine Legionella Antigen - Final PRESUMPTIVE NEGATIVE FOR LEGIONELLA P... Complete 06/24/17 15:40 Streptococcus pneumoniae Antigen (M - Final Pos For Pneumococcal Antigen Complete Imaging Last Impressions Chest X-Ray 06/25/17 0000 Signed Impressions: Service Date/Time: Sunday, June 25, 2017 03:18 - CONCLUSION: 1. ET tube tip 1.6 cm above the ricky and needs to be withdrawn 1 cm. 2. No infiltrate seen. Christopher Mcknight MD Head CT 06/24/17 1108 Signed Impressions: Service Date/Time: Saturday, June 24, 2017 12:48 - CONCLUSION: 1. 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 2. No acute hemorrhage. Rosas Salmon MD Lower Extremity Ultrasound 06/24/17 0000 Signed Impressions: Service Date/Time: Saturday, June 24, 2017 17:17 - CONCLUSION: Negative exam with no evidence of deep venous thrombosis. Damián Purdy MD Abdomen Ultrasound 06/24/17 0000 Signed Impressions: Service Date/Time: Saturday, June 24, 2017 16:59 - CONCLUSION: 1. Gallbladder wall thickening and small amount of pericholecystic fluid with no evidence of cholelithiasis. The findings are nonspecific but could indicate possible acalculus cholecystitis. 2. The liver is enlarged with no focal abnormality. 3. Nonobstructing right renal calculus. Damián Purdy MD Objective Remarks GENERAL: This is a middle-aged female, critically ill currently orotracheally intubated SKIN: Warm and dry. Tattoo on right lateral aspect of right leg. HEAD: Atraumatic. Normocephalic. EYES: Pupils equal and round about 7 mm bilaterally and nonreactive. No scleral icterus. No injection or drainage. ENT: No nasal bleeding or discharge. Mucous membranes pink and moist. NECK: Trachea midline. No JVD. CARDIOVASCULAR: Regular rate and rhythm. S1, S2. No S4. RESPIRATORY: No accessory muscle use. Clear to auscultation. Breath sounds equal bilaterally. GASTROINTESTINAL: Abdomen soft, non-tender, nondistended. No bowel sounds are appreciated MUSCULOSKELETAL: Extremities without significant peripheral edema. No obvious deformities. NEUROLOGICAL: Pupils of the bowel. No gag. Currently extending right upper extremity only. Does not withdrawal to noxious stimulation. No clonus. Urinary Catheter: Yes Assessment to: Continue Fernandez insert reason: Prolonged Immobilization Vascular Central Line Catheter: Yes Assessment to: Continue Date of Insertion: Jun 24, 2017 Line: Central Venous Catheter Side: Right Location: Internal, Jugular A/P Assessment and Plan Neuro/Psych: Likely anoxic brain injury Seizure disorder NOS Hx right parietal CVA History of polysubstance abuse - amphetamines and opiates urine drug screen Written for propofol/fentanyl drips for sedation/analgesia while intubated. Currently on fentanyl drip at 50 mcg an hour Goal of RA SS -[address] brain revealed old right parietal CVA. Loaded with levetiracetam 1 g followed by 500 mg IV twice a day Check Dilantin/valproic acid levels -subtherapeutic. Unknown current drug regimen. EEG ordered and performed. Final results pending Urine toxicology screen positive for amphetamines and opiates CV: [facility] Severe sepsis History of AICD placement/singly by Dr. Stinson Lactic acidosis QTC prolongation Right bundle branch block single chamber AICD History of severe nonischemic cardiopathy ejection fraction 20% Severe biventricular dysfunction History of recurrent V. fib arrest Elevated troponin Etiology of cardiac arrest unclear. Given 2 mg lorazepam followed by code Due to 50 minute length of code not candidate for code cool Currently off all vasopressors. On normal saline at 84 cc an hour. Goal to maintain mean artery pressure greater than 65 Serial lactates until clear. Currently 2.2 Serial troponins. Initially 0.04 currently 0.89 2-D echo as been completed. Results pending EKG reveals normal sinus rhythm 88. Right bundle branch block. QTC 509' Son to obtain home medications. Noted she's been off all medications 3 weeks AICD has been interrogated. No shocks noted Previously on mexiletine 200 every 8, carvedilol and entresto Resp: Acute respiratory failure [facility] 16//08/12/39 Ventilator bundle Albuterol/ipratropium aerosols every 6 hours albuterol aerosols every 2 hours. Dyspnea Breathing trials if clinically indicated Very low likelihood PE. Follow-up on a.m. x-ray GI: Transaminitis OGT to LIWS Famotidine for GI prophylaxis Docusate sodium/senna 1 tablet twice a day for bowel regimen hepatitis panel pending Abdominal ultrasound revealed distended gallbladder without signs of cholecystitis. Enlarged liver. Right renal cyst Start Glucerna 1.5 goal 50 cc an hour for tube feeding Repeat LFTs in a.m. : Fernandez catheter is indicated for accurate I's and O's in a critically ill patient Endo: Hyperglycemia Currently on sliding scale insulin with Accu-Cheks every 4 hours to maintain euglycemia/Novulin R median protocol Follow-up on hemoglobin A1c and TSH Renal: Acute kidney injury Right renal cyst Monitor urine output Accurate I's and O's Recheck BMP in a.m. Urine eosinophils negative. Abdominal ultrasound revealed no hydronephrosis. With low ejection fraction will gently diurese today. Orders Heme: Leukocytosis Monitor CBC and coags daily. Follow trends Does not meet transfusion thresholds at this time ID: Urine pneumococcal antigen positive Received vancomycin and piperacillin/tazobactam in ED. We'll continue piperacillin/tazobactam and vancomycin day #2 Blood cultures 2 no growth 06/24. Urine culture, sputum results. Urine pneumococcal antigen positive MSK: PT evaluate and treat FEN: Hypophosphatemia Replace electrolytes as clinically indicated Access - Utilize right IJ CVL day number 2 placed 06/24 Prophylaxis - GI - famotidine - DVT - SCD/heparin subcutaneous Critical Care: The total critical care time was 35 minutes. Time to perform other separately billable procedures was not included in the critical care time. Yoandy Greene MD Jun 25, 2017 10:58
[2017-06-25] MEDS ORDERED: FUROSEMIDE 20 MG/2 ML VIAL IV PUSH ONE (11:15)
--- NOTE | 2017-06-25 12:01 | MG ---
cc: ADAN SMALLS Lab No:[id number] Date: 06/25/2017 Age: Sex: F Race: Hyperventilation not performed. Old right parietal infarct. Cardiac arrest, cardiopulmonary resuscitation. This initially shows a burst suppression pattern with about 2-3 seconds of bursts and then about up to 10 seconds and 15 seconds of suppression, the bursts are 8 Hz diffuse 60-70 microvolt rhythms, not particularly epileptiform and this continues throughout the recording. The bursts her synchronous and symmetric. Sometimes some 3 Hz bursts are noted and that continues throughout the recording. The patient has some right arm posturing that did not correlate actually with any brain activity and was seen mainly in the suppression pattern, although one time was in a burst suppression but mainly in suppression. IMPRESSION Burst suppression pattern consistent with a severe diffuse cerebral disturbance. Clinical correlation is needed. MD ARPIT Gerardo/lashaun /9:56 AM /10:28 AM
[2017-06-25] MEDS: BENEPROTEIN POWDER 1 PACK G-TUBE SCH ×2 (13:00→17:05)
--- NOTE | 2017-06-25 13:41 | MB ---
cc: [facility] DATE OF CONSULTATION: 06/25/2017 REASON FOR CONSULTATION: The patient is a right-handed woman with a history of hypertension, insulin dependent diabetes, myocardial infarction who has evidently been here several times for myocardial infarction. Atrial fibrillation, not on blood thinners defibrillator, who does not have a history of seizures but her boyfriend thought maybe she had seizures. Her children are here but they were not there at home. She evidently had some kind of seizure-like activity or something that was thought to be a seizure and then she coded and was down for 50 minutes. He has been no jerking according to the nurse she has been on fentanyl so sedated somewhat on the vent. SOCIAL HISTORY Not a smoker or drinker. She use to do drugs but not recently lives with her children. FAMILY HISTORY Negative cancer seizure. Positive stroke in her mother. REVIEW OF SYSTEMS No history of hypercholesterolemia that they know of, bypass, renal, hepatic, pulmonary disease, thyroid disease lupus, ulcer cancer prior seizure or stroke that they know of for sure. MEDICATIONS current medications on 1. Fentanyl. I just asked them to turn that off. 2. She is also on lactulose. 3. Pepcid. 4. Insulin 5. Subcu Heparin. REVIEW OF SYSTEMS VITAL SIGNS: On exam the T-max 101.3 with now afebrile, some low grade fevers to 99, 105-100 154/95. NECK: There were no carotid bruits. HEART: The heart was regular rhythm, I did not detect a murmur. NEUROLOGIC: The pupils are equal, and they do minimally react. The doll's eyes are normal. She is as sedated and intubated her tone was normal throughout. There is no ankle clonus. Toes are mute. Corneals are absent bilaterally. LABORATORY DATA White count 20,000. Hematocrit is normal. platelet count normal Arterial blood gas 7.2147 and 183 was her admission arterial blood gas. Basic metabolic profile creatinine is 1.78, BUN 29 otherwise normal. Lactic acid 2.2. Liver function tests are elevated 167 AST and 135, ALT troponin is 0.43. CPK is 256. TSH normal. EEG is a burst suppression pattern. Chest x-ray No negative for infiltrate CT scan of the brain old right parietal infarct. She cannot have an MRI due to the defibrillator. There is definite old stroke that is perfect left have a right MCA infarct posterior division. There is a pie shaped cortical infarct. From her other name Kamini Vela, She had an echocardiogram with an ejection fraction of 20-25% and severe left ventricular dysfunction in February of this year. She had a Holter monitor in 2005, showed sinus rhythm. She was in the ICU in February of this year with a history of V-fib cardiac arrest. She had a history of head CT in February which showed an old stroke. No carotid ultrasound was ever done. IMPRESSION/PLAN: She is not brain , some burst suppression was seen which could be consistent with significant anoxic damage but she is on sedatives so we will stop those. She has had an old stroke and depending on how she does we could do a stroke workup. For certainly with a low ejection fraction and ventricular fibrillation probably cardioembolic. I talked to the family and we will see how she does off the sedatives. MD ARPIT Gerardo/lashaun /10:47 AM /1:31 PM
--- NOTE | 2017-06-25 14:11 | ECHRPT ---
Indication: STATUS POST 50 MIN CODE CONCLUSIONS Moderately dilated left ventricle. Wall thickness is normal. The left ventricular systolic function is severely reduced with an estimated ejection fraction less than 20%. There is diffuse global hypokinesis with distinct regional wall motion abnormalities. The right ventricular systoilc function is moderately decreased. Moderate mitral valve regurgitation. Trace aortic valve regurgitation. There is trace tricuspid valve regurgitation. linear opacity seen, @ 4x1 cmfrpm lower left atrial septum adjacent to atrial surface of left leafle t extending to the tip of the left leaflet at peak diastole, may be an extracardiac structure within the imaging plane superimposed across the mv BP: / HR: Rhythm: MEASUREMENTS (Male / Female) Normal Values Technical Quality:Good 2D ECHO LV Diastolic Diameter PLAX 6.9 cm 4.2 - 5.9 / 3.9 - 5.3 cm LV Systolic Diameter PLAX 6.5 cm IVS Diastolic Thickness 1.0 cm 0.6 - 1.0 / 0.6 - 0.9 cm LVPW Diastolic Thickness 0.9 cm 0.6 - 1.0 / 0.6 - 0.9 cm LV Relative Wall Thickness 0.3 RV Internal Dim ED PLAX 2.3 cm LA Systolic Diameter LX 4.2 cm 3.0 - 4.0 / 2.7 - 3.8 cm M-MODE Aortic Root Diameter MM 3.4 cm AV Cusp Separation MM 1.8 cm DOPPLER MR Peak Velocity 526.0 cm/s MR Peak Gradient 110.7 mmHg Mitral E Point Velocity 83.9 cm/s Mitral A Point Velocity 65.2 cm/s Mitral E to A Ratio 1.3 TR Peak Velocity 147.0 cm/s TR Peak Gradient 8.6 mmHg Right Atrial Pressure 5.0 mmHg Pulmonary Artery Systolic Pressu 13.6 mmHg Right Ventricular Systolic Press 13.6 mmHg FINDINGS LEFT VENTRICLE Moderately dilated left ventricle. Wall thickness is normal. The left ventricular systolic function is severely reduced with an estimated ejection fraction less than 20%. There is diffuse global hypokinesis with distinct regional wall motion abnormalities. RIGHT VENTRICLE The right ventricular systoilc function is moderately decreased. LEFT ATRIUM ICD wire seen in Left Atrium RIGHT ATRIUM The right atrial size is normal. ATRIAL SEPTUM Normal atrial septal thickness without atrial level shunting by limited color doppler interrogation. AORTA The aortic root and proximal ascending aorta are normal in size on limited imaging. MITRAL VALVE Moderate mitral valve regurgitation. AORTIC VALVE Trace aortic valve regurgitation. TRICUSPID VALVE There is trace tricuspid valve regurgitation. PULMONARY VALVE No pulmonary valve regurgitation or stenosis. VESSELS The inferior vena cava is normal in size. PERICARDIUM No pericardial effusion. Silas Felix MD, FACC, [facility] (Electronically Signed) Final Date:25 June 2017 14:10
--- NOTE | 2017-06-25 16:11 | PD.CONS ---
HPI Service Cardiology Consult Requested By Hospitalist Reason for Consult S/P Cardiac arrest Primary Care Physician Unknown History of Present Illness Ms. Vela is a 52 year old female with a past medical history of Vfib arrest in February, known cardiomyopathy with EF 20%, S/P ICD implantation. EMS was called to her home for questionable seizure. Per report, upon arrival she appeared to be having seizure and was given 2mg IV ativan, she went into cardiac arrest. She received 3 rounds of epinephrine and one bicarb in the field and another 3 rounds of epinephrine in the ED with ROSC after 50 minutes of resuscitation efforts. Device interrogation did not show any device therapy was delivered. EKG with sinus rhythm RBBB, prolonged QTc 509. Echocardiogram with EF <20%, severe global hypokinesis, moderate MR. 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 EEG is a burst suppression pattern. She is currently intubated, Fio2 40%, on fentanyl and insulin drips. Her blood pressure is stable without pressor support. She is posturing and does not respond to stimulation. Review of Systems ROS Limitations: Intubated, Unresponsive Past Family Social History Allergies: Coded Allergies: No Allergy Information Available (Unverified , 06/24/17) Patient unresponsive Past Medical History cardiomyopathy S/P ICD Vfib arrest in February mitral regurgitation Past Surgical History ICD implantation Reported Medications Current Medications Medications (Trade) Dose Ordered Sig/Michael Route Start Time Stop Time Status Last Admin Norepinephrine Bitartrate 250 ml @ 7.5 mls/hr TITRATE PRN IV 06/24/17 11:45 06/24/17 10:59 (Brethine Inj) 1 mg UNSCH PRN SQ 06/24/17 11:45 Epinephrine HCl 2 mg/Dextrose 252 ml @ 22.68 mls/ hr TITRATE PRN IV 06/24/17 11:45 06/24/17 11:34 (NS Flush) 2 ml UNSCH PRN IV FLUSH 06/24/17 14:00 (NS Flush) 2 ml BID IV FLUSH 06/24/17 21:00 06/25/17 08:34 (Tears Naturale Opth Soln) 1 drop TID EACH EYE 06/24/17 18:00 06/25/17 13:13 (Zofran Inj) 4 mg Q6H PRN IV PUSH 06/24/17 14:00 (Duoneb Neb) 1 ampule Q6HR NEB INH 06/24/17 16:00 06/25/17 15:05 (Albuterol Neb) 2.5 mg Q2HR NEB PRN INH 06/24/17 14:00 (Heparin Inj) 5,000 units Q12H SQ 06/24/17 15:00 06/25/17 13:17 Miscellaneous Information 1 Q361D XX 06/24/17 14:00 (Chlorhexidine 2% Cloth) 3 pack Taper DAILY@04 TOP 06/25/17 04:00 06/21/18 03:59 06/25/17 04:00 (Chlorhexidine 2% Cloth) 3 pack UNSCH PRN TOP 06/24/17 14:00 (Lisa-Colace) 1 tab BID PO 06/24/17 21:00 06/25/17 08:34 (Milk Of Magnesia Liq) 30 ml Q12H PRN PO 06/24/17 14:00 (Senokot) 17.2 mg Q12H PRN PO 06/24/17 14:00 (Dulcolax Supp) 10 mg DAILY PRN RECTAL 06/24/17 14:00 (Lactulose Liq) 30 ml DAILY PRN PO 06/24/17 14:00 (Peridex 0.12% Liq) 15 ml BID@08,20 MT 06/24/17 20:00 06/25/17 08:34 Propofol 100 ml @ 2.19 mls/hr TITRATE PRN IV 06/24/17 14:00 Fentanyl Citrate 250 ml @ 5 mls/hr TITRATE PRN IV 06/24/17 14:00 06/24/17 16:35 Potassium Chloride 100 ml @ 50 mls/hr Q2H PRN IV 06/24/17 14:00 Potassium Chloride 100 ml @ 50 mls/hr Q2H PRN IV 06/24/17 14:00 (K-Lyte Cl Eff) 50 meq UNSCH PRN PO 06/24/17 14:00 Potassium Chloride 100 ml @ 25 mls/hr UNSCH PRN IV 06/24/17 14:00 Potassium Chloride 100 ml @ 50 mls/hr Q2H PRN IV 06/24/17 14:00 Magnesium Sulfate 4 gm/Sodium Chloride 100 ml @ 50 mls/hr UNSCH PRN IV 06/24/17 14:00 (Mag-Ox) 800 mg UNSCH PRN PO 06/24/17 14:00 Magnesium Sulfate 2 gm/Sodium Chloride 100 ml @ 50 mls/hr UNSCH PRN IV 06/24/17 14:00 (K-Phos) 2,000 mg Q4H PRN PO 06/24/17 14:00 Sodium Phosphate 30 mmol/Sodium Chloride 250 ml @ 42 mls/hr UNSCH PRN IV 06/24/17 14:00 (K-Phos) 2,000 mg UNSCH PRN PO/TUBE 06/24/17 14:00 Potassium Phosphate 30 mmol/ Sodium Chloride 260 ml @ 42 mls/hr UNSCH PRN IV 06/24/17 14:00 Pharmacy Profile Note 0 ml @ 0 mls/hr UNSCH OTHER 06/24/17 15:00 (D50w (Vial) Inj) 50 ml UNSCH PRN IV PUSH 06/24/17 16:15 (Glucagon Inj) 1 mg UNSCH PRN OTHER 06/24/17 16:15 (NovoLIN R SUPPLEMENTAL SCALE) 1 Q4HR SQ 06/24/17 20:00 06/25/17 11:47 (Lactulose Liq) 30 ml DAILY PO 06/25/17 09:00 06/25/17 08:34 Vancomycin HCl 1350 mg/Sodium Chloride 513.5 ml @ 250 mls/hr Q12H IV 06/25/17 03:00 Future Hold 06/25/17 06:12 Miscellaneous Information SPECIFIC LAB TO BE [facility]... ONCE ONCE .XX 06/26/17 02:45 06/26/17 02:46 Piperacillin Sod/ Tazobactam Sod 100 ml @ 200 mls/hr Q8HR IV 06/25/17 14:00 06/25/17 13:16 (Pepcid Inj) 20 mg DAILY IV PUSH 06/26/17 09:00 (Beneprotein Powder) 1 pack TID G-TUBE 06/25/17 13:00 06/25/17 13:00 Active Ordered Medications Current Medications Medications (Trade) Dose Ordered Sig/Michael Route Start Time Stop Time Status Last Admin Norepinephrine Bitartrate 250 ml @ 7.5 mls/hr TITRATE PRN IV 06/24/17 11:45 06/24/17 10:59 (Brethine Inj) 1 mg UNSCH PRN SQ 06/24/17 11:45 Epinephrine HCl 2 mg/Dextrose 252 ml @ 22.68 mls/ hr TITRATE PRN IV 06/24/17 11:45 06/24/17 11:34 (NS Flush) 2 ml UNSCH PRN IV FLUSH 06/24/17 14:00 (NS Flush) 2 ml BID IV FLUSH 06/24/17 21:00 06/25/17 08:34 (Tears Naturale Opth Soln) 1 drop TID EACH EYE 06/24/17 18:00 06/25/17 13:13 (Zofran Inj) 4 mg Q6H PRN IV PUSH 06/24/17 14:00 (Duoneb Neb) 1 ampule Q6HR NEB INH 06/24/17 16:00 06/25/17 15:05 (Albuterol Neb) 2.5 mg Q2HR NEB PRN INH 06/24/17 14:00 (Heparin Inj) 5,000 units Q12H SQ 06/24/17 15:00 06/25/17 13:17 Miscellaneous Information 1 Q361D XX 06/24/17 14:00 (Chlorhexidine 2% Cloth) 3 pack Taper DAILY@04 TOP 06/25/17 04:00 06/21/18 03:59 06/25/17 04:00 (Chlorhexidine 2% Cloth) 3 pack UNSCH PRN TOP 06/24/17 14:00 (Lisa-Colace) 1 tab BID PO 06/24/17 21:00 06/25/17 08:34 (Milk Of Magnesia Liq) 30 ml Q12H PRN PO 06/24/17 14:00 (Senokot) 17.2 mg Q12H PRN PO 06/24/17 14:00 (Dulcolax Supp) 10 mg DAILY PRN RECTAL 06/24/17 14:00 (Lactulose Liq) 30 ml DAILY PRN PO 06/24/17 14:00 (Peridex 0.12% Liq) 15 ml BID@08,20 MT 06/24/17 20:00 06/25/17 08:34 Propofol 100 ml @ 2.19 mls/hr TITRATE PRN IV 06/24/17 14:00 Fentanyl Citrate 250 ml @ 5 mls/hr TITRATE PRN IV 06/24/17 14:00 06/24/17 16:35 Potassium Chloride 100 ml @ 50 mls/hr Q2H PRN IV 06/24/17 14:00 Potassium Chloride 100 ml @ 50 mls/hr Q2H PRN IV 06/24/17 14:00 (K-Lyte Cl Eff) 50 meq UNSCH PRN PO 06/24/17 14:00 Potassium Chloride 100 ml @ 25 mls/hr UNSCH PRN IV 06/24/17 14:00 Potassium Chloride 100 ml @ 50 mls/hr Q2H PRN IV 06/24/17 14:00 Magnesium Sulfate 4 gm/Sodium Chloride 100 ml @ 50 mls/hr UNSCH PRN IV 06/24/17 14:00 (Mag-Ox) 800 mg UNSCH PRN PO 06/24/17 14:00 Magnesium Sulfate 2 gm/Sodium Chloride 100 ml @ 50 mls/hr UNSCH PRN IV 06/24/17 14:00 (K-Phos) 2,000 mg Q4H PRN PO 06/24/17 14:00 Sodium Phosphate 30 mmol/Sodium Chloride 250 ml @ 42 mls/hr UNSCH PRN IV 06/24/17 14:00 (K-Phos) 2,000 mg UNSCH PRN PO/TUBE 06/24/17 14:00 Potassium Phosphate 30 mmol/ Sodium Chloride 260 ml @ 42 mls/hr UNSCH PRN IV 06/24/17 14:00 Pharmacy Profile Note 0 ml @ 0 mls/hr UNSCH OTHER 06/24/17 15:00 (D50w (Vial) Inj) 50 ml UNSCH PRN IV PUSH 06/24/17 16:15 (Glucagon Inj) 1 mg UNSCH PRN OTHER 06/24/17 16:15 (NovoLIN R SUPPLEMENTAL SCALE) 1 Q4HR SQ 06/24/17 20:00 06/25/17 11:47 (Lactulose Liq) 30 ml DAILY PO 06/25/17 09:00 06/25/17 08:34 Vancomycin HCl 1350 mg/Sodium Chloride 513.5 ml @ 250 mls/hr Q12H IV 06/25/17 03:00 Future Hold 06/25/17 06:12 Miscellaneous Information SPECIFIC LAB TO BE [facility]... ONCE ONCE .XX 06/26/17 02:45 06/26/17 02:46 Piperacillin Sod/ Tazobactam Sod 100 ml @ 200 mls/hr Q8HR IV 06/25/17 14:00 06/25/17 13:16 (Pepcid Inj) 20 mg DAILY IV PUSH 06/26/17 09:00 (Beneprotein Powder) 1 pack TID G-TUBE 06/25/17 13:00 06/25/17 13:00 Family History unable to obtain Social History unable to obtain Physical Exam Vital Signs Vital Signs Date Time Temp Pulse Resp B/P (MAP) Pulse Ox O2 Delivery O2 Flow Rate FiO2 06/25/17 15:06 34 40 06/25/17 14:00 116 06/25/17 13:00 117 155/93 (113) 100 06/25/17 12:00 117 06/25/17 12:00 40 06/25/17 12:00 101.0 117 150/93 (112) 100 06/25/17 11:32 100 40 06/25/17 11:00 111 153/95 (114) 100 06/25/17 10:00 110 06/25/17 10:00 110 159/97 (117) 100 06/25/17 09:00 107 156/94 (114) 100 06/25/17 08:00 109 06/25/17 08:00 99.0 109 165/97 (119) 100 06/25/17 08:00 45 06/25/17 07:27 100 40 06/25/17 07:00 105 160/98 (118) 100 06/25/17 06:10 100 40 06/25/17 06:00 105 06/25/17 06:00 106 160/95 (116) 100 06/25/17 05:00 104 157/96 (116) 100 06/25/17 04:23 100 40 06/25/17 04:00 45 06/25/17 04:00 98.9 100 154/95 (114) 100 06/25/17 04:00 101 06/25/17 02:00 101 06/25/17 01:15 100 40 06/25/17 00:00 107 06/25/17 00:00 45 06/25/17 00:00 101.3 104 16 156/96 (116) 100 06/24/17 22:00 107 06/24/17 20:37 100 45 06/24/17 20:00 107 06/24/17 20:00 45 06/24/17 20:00 99.8 106 16 139/90 (106) 100 06/24/17 18:00 106 06/24/17 16:00 45 06/24/17 16:00 99.0 106 20 151/88 (109) 99 06/24/17 16:00 106 Physical Exam GENERAL: Intubated, unresponsive. SKIN: Warm and dry. HEAD: Atraumatic. Normocephalic. EYES: Pupils slightly reactive. No scleral icterus. No injection or drainage. ENT: No nasal bleeding or discharge. Mucous membranes pink and moist. NECK: Trachea midline. No JVD. CARDIOVASCULAR: Regular rate and rhythm. Systolic murmur over the apex. No edema. RESPIRATORY: Intubated. FiO2 40%. Clear to auscultation. Breath sounds equal bilaterally. GASTROINTESTINAL: Abdomen soft, nondistended. MUSCULOSKELETAL: Extremities without clubbing, cyanosis, or edema. No obvious deformities. NEUROLOGICAL: Unresponsive. Posturing. PSYCHIATRIC: Unresponsive. Laboratory Laboratory Tests Test 06/24/17 17:00 06/24/17 23:38 06/25/17 03:10 06/25/17 11:55 Hemoglobin A1c 7.0 Lactic Acid Level 2.5 2.2 2.2 2.6 Ammonia 29 Troponin I 0.23 0.33 0.43 Amylase Level 346 Lipase 134 Thyroid Stimulating Hormone 3rd Gen 0.609 Valproic Acid (Depakene) Level 5 White Blood Count 20.2 Red Blood Count 3.93 Hemoglobin 12.3 Hematocrit 36.2 Mean Corpuscular Volume 92.2 Mean Corpuscular Hemoglobin 31.2 Mean Corpuscular Hemoglobin Concent 33.8 Red Cell Distribution Width 12.5 Platelet Count 306 Mean Platelet Volume 6.8 Neutrophils (%) (Auto) 93.1 Lymphocytes (%) (Auto) 3.8 Monocytes (%) (Auto) 2.8 Eosinophils (%) (Auto) 0.0 Basophils (%) (Auto) 0.3 Neutrophils # (Auto) 18.8 Lymphocytes # (Auto) 0.8 Monocytes # (Auto) 0.6 Eosinophils # (Auto) 0.0 Basophils # (Auto) 0.1 CBC Comment DIFF FINAL Differential Comment Prothrombin Time 12.0 Prothromb Time International Ratio 1.1 Activated Partial Thromboplast Time 25.7 Blood Urea Nitrogen 29 Creatinine 1.78 Random Glucose 297 Total Protein 6.8 Albumin 2.8 Calcium Level 8.9 Phosphorus Level 2.4 Magnesium Level 2.2 Alkaline Phosphatase 136 Aspartate Amino Transf (AST/SGOT) 167 Alanine Aminotransferase (ALT/SGPT) 135 Total Bilirubin 0.5 Sodium Level 141 Potassium Level 4.4 Chloride Level 108 Carbon Dioxide Level 21.2 Anion Gap 12 Estimat Glomerular Filtration Rate 25 Vancomycin Level Trough 8.4 Date/Time Source Procedure Growth Status 06/24/17 11:40 Blood Peripheral Aerobic Blood Culture - Preliminary NO GROWTH IN 1 DAY Resulted 06/24/17 11:40 Blood Peripheral Anaerobic Blood Culture - Preliminary NO GROWTH IN 1 DAY Resulted 06/24/17 16:45 Nasal Aspirate Influenza Types A,B Antigen (GAGAN) - Final NEGATIVE FOR FLU A AND B ANTIGEN.... Complete 06/24/17 15:40 Urine Catheterized Urine Legionella Antigen - Final PRESUMPTIVE NEGATIVE FOR LEGIONELLA P... Complete 06/24/17 15:40 Streptococcus pneumoniae Antigen (M - Final Pos For Pneumococcal Antigen Complete Result Diagram: 06/25/17 0310 06/25/17 0310 Imaging Last 24 hours Impressions Chest X-Ray 06/25/17 0000 Signed Impressions: Service Date/Time: Sunday, June 25, 2017 03:18 - CONCLUSION: 1. ET tube tip 1.6 cm above the ricky and needs to be withdrawn 1 cm. 2. No infiltrate seen. Christopher Mcknight MD Assessment and Plan Assessment and Plan S/P Cardiac Arrest Possible seizure Anoxic brain injury Cardiomyopathy with EF <20% S/P ICD History of R parietal CVA Moderate mitral regurgitation Cardiac arrest secondary to pump failure. EF <20%. No ICD therapy was administered. Continue supportive care. Continue beta talia, OLE-I. Poor prognosis. Code Status Full Discussed Condition With Jannette Roberto Jun 25, 2017 16:11
[2017-06-25] MEDS: CARVEDILOL 6.25 MG TAB PO SCH (20:38)
[2017-06-25] MEDS: METOPROLOL TARTRATE 5 MG/5 ML VIAL IV PUSH PRN (20:38)
[2017-06-25] MEDS ORDERED: CARVEDILOL 3.125 MG TAB PO SCH (21:00)
[2017-06-25] MEDS: fentaNYL DRIP 250 ML IV PRN (23:26)
[2017-06-26] VITALS (21 sets, daily range): BP systolic 101–148; BP diastolic 71–90; PULSE 107–172; RESP 16; TEMP 98–102; O2SAT 100
[2017-06-26] MEDS ORDERED: PHARMACY ORDERED LAB ONE (02:45)
[2017-06-26] MEDS: HEPARIN SODIUM - SQ 10,000 UNITS/ML VIAL SQ SCH ×2 (03:00→15:50)
[2017-06-26] MEDS: CHLORHEXIDINE GLUCONATE 2 % 1 PACK (2 CLOTHS) TOP SCH (04:00)
[2017-06-26] MEDS: INSULIN NovoLIN REGULAR SUPPLEMENTAL SCALE SQ SCH ×6 (04:00→23:55)
[2017-06-26 04:18] LABS: ANION GAP 9 MEQ/L (5-15)
[2017-06-26 04:19] LABS: ALKALINE PHOSPHATASE 118 U/L (45-117); ALT (GPT) 102 U/L (10-53); AST (GOT) 111 U/L (15-37); BICARBONATE 24.8 MEQ/L (21.0-32.0); BLOOD UREA NITROGEN 33 MG/DL (7-18); CHLORIDE 109 MEQ/L (98-107); GLOMERULAR FILTRATION RATE 30 ML/MIN (>89); POTASSIUM 3.7 MEQ/L (3.5-5.1); SODIUM (NA) 143 MEQ/L (136-145); TOTAL BILIRUBIN ADULT 0.4 MG/DL (0.2-1.0)
[2017-06-26 04:20] LABS: AUTOMATED NEUTROPHIL # 22.9 TH/MM3 (1.8-7.7); BASOPHIL # 0.1 TH/MM3 (0-0.2); BASOPHIL % 0.5 % (0.0-2.0); HEMATOCRIT 35.5 % (35.0-46.0); HEMO FLAGS DIFF FINAL; LYMPH % 6.5 % (9.0-44.0); LYMPHOCYTE # 1.7 TH/MM3 (1.0-4.8); MEAN CELL VOLUME 92.2 FL (80.0-100.0); MEAN CORPUSCULAR HEMOGLOBIN 31.1 PG (27.0-34.0); MEAN CORPUSCULAR HGB CONC 33.7 % (32.0-36.0); MONO % 4.6 % (0.0-8.0); NEUT % 88.4 % (16.0-70.0); PLATELET COUNT 284 TH/MM3 (150-450); RED BLOOD COUNT 3.85 MIL/MM3 (4.00-5.30); RED CELL DISTRIBUTION WIDTH 12.6 % (11.6-17.2); WHITE BLOOD COUNT 25.9 TH/MM3 (4.0-11.0)
[2017-06-26] MEDS: PIPERACIL-TAZO 4.5 GM PREMIX 100 ML IV SCH ×3 (05:00→20:17)
[2017-06-26] MEDS: METOPROLOL TARTRATE 5 MG/5 ML VIAL IV PUSH PRN ×2 (05:16→14:39)
[2017-06-26] MEDS: RESP: ALBUTEROL 2.5 MG/IPRATROPIUM 0.5 MG NEB (SCH) INH ×4 (05:27→19:35)
--- NOTE | 2017-06-26 05:31 | RADRPT ---
EXAM DATE/TIME: 06/26/2017 03:38 [facility] COMPARISON: CHEST SINGLE AP, June 25, 2017, 3:18. INDICATIONS : Evaluate for pnuemonia- Respiratory failure MEDICAL HISTORY : Myocardial infarction. SURGICAL HISTORY : Pacemaker. ENCOUNTER: Subsequent ACUITY: 3 days PAIN SCORE: Non-responsive. LOCATION: Bilateral chest FINDINGS: ET tube tip well above the ricky. Gastric tube traverses the [id number]. Right internal jugular catheter tip projects in the right atrium. The lungs are clear. No infiltrate seen. The heart is normal size. Cardiac pacer leads in place. CONCLUSION: No infiltrates seen. Christopher Mcknight MD on June 26, 2017 at 5:29 Board Certified Radiologist. This report was verified electronically.
--- NOTE | 2017-06-26 07:47 | HHI.CCPN ---
Subjective Remarks/Hospital Course Initial presentation to [facility] female middle-aged unknown name. She is brought into [facility] full cardiac arrest with ongoing CPR . Noted that information is obtained from ER physician. No family is available. Per EMS, records, they were called this patient's dressings due to a seizure of unknown duration.. Patient has history of seizures. EMS states they gave 2 mg of lorazepam to stop the active seizure at this time. Unfortunately, the patient went into cardiac arrest. ACLS was initiated by EMS. She received 3 doses of epinephrine and a dose of bicarbonate by EMS prior to arrival, with no change in her condition. EMS states they began ACLS protocol around 1010, with arrival to the emergency department around 1040. Patient received an additional 3 rounds of epinephrine and was intubated in the ED. ROSC at [address] 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 Lactic acid elevated 10.9. Troponin 0.04. White blood cell count 19,000. Blood sugar was greater than 400. Elevated transaminases. Patient is currently extending.. Pupils are fixed and dilated at 7 mm bilaterally. X-ray , notice implantable device. Due to likely multiple comorbid conditions patient is not candidate for code cool Subjective 06/25: Tmax 101.3. Currently afebrile. Withdrawals occasionally upper extremity's. Pupils remain around 7 mm and relatively fixed. No gag. Occasionally overbreathing the ventilator. Son will bring in medication list. Real name is Kamini Vela. She is 52. Her son also states that patient has been off medication 3 weeks. 06/26: Afebrile. Patient remains encephalopathic. Repeat EEG pending this a.m. Patient off sedatives since 4 AM. Noted continued elevated LFTs, most likely secondary to shock liver will continue to trend and follow-up ammonia level. Lab report patient positive for pneumococcal pneumonia, continued elevated WBC count. Objective Vital Signs Date Time Temp Pulse Resp B/P (MAP) Pulse Ox O2 Delivery O2 Flow Rate FiO2 06/26/17 07:16 100 40 06/26/17 04:00 98.0 115 16 141/86 (104) 06/24/17 13:30 Ventilator Intake and Output 06/26/17 06/26/17 06/27/17 08:00 16:00 00:00 Intake Total 237 ml Output Total 700 ml Balance -463 ml Result Diagram: 06/26/17 0315 06/26/17 0315 Other Results Microbiology Date/Time Source Procedure Growth Status 06/24/17 16:45 Nasal Aspirate Influenza Types A,B Antigen (GAGAN) - Final NEGATIVE FOR FLU A AND B ANTIGEN.... Complete 06/24/17 15:40 Urine Catheterized Urine Legionella Antigen - Final PRESUMPTIVE NEGATIVE FOR LEGIONELLA P... Complete 06/24/17 15:40 Streptococcus pneumoniae Antigen (M - Final Pos For Pneumococcal Antigen Complete Imaging Last Impressions Chest X-Ray 06/26/17 0600 Signed Impressions: Service Date/Time: Monday, June 26, 2017 03:38 - CONCLUSION: No infiltrates seen. Christopher Mcknight MD Head CT 06/24/17 1108 Signed Impressions: Service Date/Time: Saturday, June 24, 2017 12:48 - CONCLUSION: 1. 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 2. No acute hemorrhage. Rossa Salmon MD Lower Extremity Ultrasound 06/24/17 0000 Signed Impressions: Service Date/Time: Saturday, June 24, 2017 17:17 - CONCLUSION: Negative exam with no evidence of deep venous thrombosis. Damián Purdy MD Abdomen Ultrasound 06/24/17 0000 Signed Impressions: Service Date/Time: Saturday, June 24, 2017 16:59 - CONCLUSION: 1. Gallbladder wall thickening and small amount of pericholecystic fluid with no evidence of cholelithiasis. The findings are nonspecific but could indicate possible acalculus cholecystitis. 2. The liver is enlarged with no focal abnormality. 3. Nonobstructing right renal calculus. Damián Purdy MD Last Impressions Chest X-Ray 06/25/17 0000 Signed Impressions: Service Date/Time: Sunday, June 25, 2017 03:18 - CONCLUSION: 1. ET tube tip 1.6 cm above the ricky and needs to be withdrawn 1 cm. 2. No infiltrate seen. Christopher Mcknight MD Head CT 06/24/17 1108 Signed Impressions: Service Date/Time: Saturday, June 24, 2017 12:48 - CONCLUSION: 1. 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 2. No acute hemorrhage. Rosas Salmon MD Lower Extremity Ultrasound 06/24/17 0000 Signed Impressions: Service Date/Time: Saturday, June 24, 2017 17:17 - CONCLUSION: Negative exam with no evidence of deep venous thrombosis. Damián Purdy MD Abdomen Ultrasound 06/24/17 0000 Signed Impressions: Service Date/Time: Saturday, June 24, 2017 16:59 - CONCLUSION: 1. Gallbladder wall thickening and small amount of pericholecystic fluid with no evidence of cholelithiasis. The findings are nonspecific but could indicate possible acalculus cholecystitis. 2. The liver is enlarged with no focal abnormality. 3. Nonobstructing right renal calculus. Damián Purdy MD Objective Remarks GENERAL: This is a middle-aged well-nourished well-developed critically ill female, currently orotracheally intubated, nonresponsive all sedative SKIN: Warm and dry. Tattoo on right lateral aspect of right leg. HEAD: Atraumatic. Normocephalic. EYES: Pupils equal and round about 7 mm bilaterally and nonreactive. No scleral icterus. No injection or drainage. ENT: No nasal bleeding or discharge. Mucous membranes pink and moist. NECK: Trachea midline. No JVD. CARDIOVASCULAR: Regular rate and rhythm. S1, S2. No S4. RESPIRATORY: No accessory muscle use. Clear to auscultation. Breath sounds equal bilaterally. GASTROINTESTINAL: Abdomen soft, non-tender, nondistended. Hypoactive bowel sounds noted MUSCULOSKELETAL: Extremities 1+peripheral edema. No obvious deformities. NEUROLOGICAL: Pupils fixed. No gag. Currently extending right upper extremity only. Does not withdrawal to noxious stimulation. No clonus. Procedures 06/26 repeat EEG Date of Insertion: Jun 24, 2017 Line: Central Venous Catheter Side: Right Location: Internal, Jugular A/P Assessment and Plan Neuro/Psych: Likely anoxic brain injury Seizure disorder NOS Hx right parietal CVA History of polysubstance abuse - amphetamines and opiates urine drug screen All forms of sedatives, fentanyl discontinued 4 AM 06/26. 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 Loaded with levetiracetam 1 g followed by 500 mg IV twice a day Check Dilantin/valproic acid levels -subtherapeutic. Unknown current drug regimen. 06/25 EEG -burst suppression pattern consistent with diffuse cerebral disturbance. Right arm posturing not consistent with brain activity. 06/26 repeat EEG pending Urine toxicology screen positive for amphetamines and opiates Monitor ammonia level CV: [facility] Severe sepsis History of AICD placement/ by Dr. Stinson Lactic acidosis QTC prolongation Right bundle branch block single chamber AICD History of severe nonischemic cardiopathy ejection fraction 20% Severe biventricular dysfunction History of recurrent V. fib arrest Elevated troponin Etiology of cardiac arrest unclear. Given 2 mg lorazepam followed by code Due to 50 minute length of code not candidate for code cool Currently off all vasopressors. On normal saline at 84 cc an hour. Goal to maintain mean artery pressure greater than 65 Serial lactates until clear. Currently 2.2 Serial troponins. Initially 0.04 -> 0.89->0.51 downtrending 06/25 2-D echo-moderate MR, ejection fraction less than 20%, trace TR, trace AR 06/25 EKG reveals normal sinus rhythm 88. Right bundle branch block. QTC 509' Son to obtain home medications. Noted she's been off all medications 3 weeks AICD has been interrogated. No shocks previously noted Previously on mexiletine 200 every 8, carvedilol and entresto Resp: Acute hypoxemic respiratory failure [facility] 16/520/08/12/39 Ventilator bundle Albuterol/ipratropium aerosols every 6 hours albuterol aerosols every 2 hours. Breathing trials if clinically indicated Very low likelihood PE. 06/26 chest x-ray-no acute process GI: Transaminitis OGT to LIWS Famotidine for GI prophylaxis Docusate sodium/senna 1 tablet twice a day for bowel regimen hepatitis panel pending Abdominal ultrasound revealed distended gallbladder without signs of cholecystitis. Enlarged liver. Right renal cyst Start Glucerna 1.5 goal 50 cc an hour for tube feeding Monitor LFTs , continued elevation AST 111, ALT 102, alkaline phosphatase 118 : Fernandez catheter is indicated for accurate I's and O's in a critically ill patient Endo: Hyperglycemia Currently on sliding scale insulin with Accu-Cheks every 4 hours to maintain euglycemia/Novulin R medium protocol hemoglobin A1c 7.0 TSH 0.609 Obtain random cortisol level Renal: Acute kidney injury Right renal cyst Monitor urine output Accurate I's and O's Monitor BMP -creatinine 1.7 Urine eosinophils negative. Abdominal ultrasound revealed no hydronephrosis. With low ejection fraction will gently diurese today. Heme: Persistent Leukocytosis Monitor CBC and coags daily. Follow trends Does not meet transfusion thresholds at this time WBC 19->25 today ID: Urine pneumococcal antigen positive Received vancomycin and piperacillin/tazobactam in ED. We'll continue piperacillin/tazobactam and vancomycin day #3 Blood cultures 2 no growth 06/24. Urine culture, sputum results. Urine pneumococcal antigen positive MSK: PT evaluate and treat Daily functional maintenance FEN: Hypophosphatemia Replace electrolytes as clinically indicated Access - Utilize right IJ CVL day number 2 placed 06/24 Prophylaxis - GI - famotidine - DVT - SCD/heparin subcutaneous Dispo: Discussed with WINDOWS SYSTEMS ENGINEER at bedside. Plan for consultation with palliative care to define goals of care. This patient remains critically ill with one or more organ systems which are or may become a threat to life. I have spent in excess of 32 minutes discontinuously in the care and management of this patient. This time is exclusive of procedures, and includes, but is not limited to, evaluation of the patient, review of the medical record, discussions with family, consultants, nursing staff, or respiratory therapy, and documentation in the medical record. Physician Agnes Cohen MD Jun 26, 2017 07:47
[2017-06-26] MEDS: BENEPROTEIN POWDER 1 PACK G-TUBE SCH ×3 (09:00→17:09)
[2017-06-26] MEDS: FAMOTIDINE 20 MG/2 ML VIAL IV PUSH SCH (09:00)
[2017-06-26] MEDS: DOCUSATE SODIUM 50 MG/SENNA 8.6 MG TAB PO SCH ×2 (09:20→20:18)
[2017-06-26] MEDS: CARVEDILOL 6.25 MG TAB PO SCH ×2 (09:20→20:18)
[2017-06-26] MEDS: LISINOPRIL 5 MG TAB NG SCH (09:20)
[2017-06-26] MEDS: LACTULOSE SYRUP 20 GM/30 ML CUP PO SCH (09:20)
[2017-06-26] MEDS: SODIUM CHLORIDE 0.9% FLUSH 10 ML FLUSH IV FLUSH SCH ×2 (09:21→20:17)
[2017-06-26] MEDS: ARTIFICIAL TEARS OPTH SOLN 15 ML BTL EACH EYE SCH ×3 (09:21→17:09)
[2017-06-26] MEDS: CHLORHEXIDINE 0.12% (ORAL KIT) 15 ML CUP MT SCH ×2 (09:24→20:00)
--- NOTE | 2017-06-26 10:20 | HHI.PR ---
Objective Vital Signs Date Time Temp Pulse Resp B/P (MAP) Pulse Ox O2 Delivery O2 Flow Rate FiO2 06/26/17 07:16 100 40 06/26/17 04:15 100 40 06/26/17 04:00 98.0 115 16 141/86 (104) 100 06/26/17 04:00 40 06/26/17 00:15 98.7 06/26/17 00:00 40 06/26/17 00:00 99.0 119 16 145/87 (106) 100 06/25/17 23:00 100 40 06/25/17 20:00 98.1 126 16 150/91 (110) 100 06/25/17 20:00 40 06/25/17 19:31 100 40 06/25/17 18:00 121 150/93 (112) 100 06/25/17 18:00 121 06/25/17 17:00 120 153/93 (113) 100 06/25/17 16:00 99.7 117 159/94 (115) 100 06/25/17 16:00 117 06/25/17 16:00 40 06/25/17 15:06 34 40 06/25/17 15:00 117 155/94 (114) 100 06/25/17 14:00 116 06/25/17 14:00 116 149/90 (109) 100 06/25/17 13:00 117 155/93 (113) 100 06/25/17 12:00 117 06/25/17 12:00 40 06/25/17 12:00 101.0 117 150/93 (112) 100 06/25/17 11:32 100 40 06/25/17 11:00 111 153/95 (114) 100 I/O 06/25/17 06/25/17 06/25/17 06/26/17 06/26/17 06/26/17 07:00 15:00 23:00 07:00 15:00 23:00 Intake Total 200 ml 713.5 ml 2454 ml 392 ml Output Total 150 ml 1850 ml 700 ml Balance 50 ml 713.5 ml 604 ml -308 ml Intake Oral 0 ml 0 ml IV Total 713.5 ml 2454 ml 392 ml Other 200 ml Output Urine Total 150 ml 1850 ml 700 ml # Bowel Movements 0 0 0 Result Diagram: 06/26/1731406/26/175 Objective Remarks off sedatives since 4 am dolls nl comatose pupil = Assessment and Plan Assessment and Plan imp eeg shows lower amplitudes burst suppression could be cw some inc edema? 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
--- NOTE | 2017-06-26 10:54 | MG ---
cc: ADAN SMALLS M.D. Lab No: [id number] Date: 06/26/2017 Age: Sex: F Race: Followup EEG. She was previously Mariann Garcia. Fentanyl has been turned off since 04:00 a.m., status post code. Recording shows a low amplitude recording with a burst suppression pattern. She has some phase reversing burst suppression over the T3 electrode, it is much lower amplitude than before. The bursts last about 3 seconds, the suppression is about 5 seconds. This is fairly steady throughout the recording. There is no spikes noted. Photic stimulation is performed without significant posterior driving. IMPRESSION A low amplitude background with a burst suppression, looks not as sharp as yesterday, phase reversing over T3 is noted, however. The amplitudes being a bit lower could indicate some progressive brain edema. No spikes was seen. No ongoing seizure was noted. MD ARPIT Gerardo/OSBALDO /10:19 AM /10:45 AM
[2017-06-26] MEDS: levETIRAcetam 1000 MG INJ 100 ML IV SCH ×2 (11:47→20:17)
--- NOTE | 2017-06-26 11:59 | EKG ---
Date Performed: 06/26/2017 Time Performed: 08:41:34 PTAGE: 52 years EKG: SINUS TACHYCARDIA ST DEVIATION AND MODERATE T-WAVE ABNORMALITY, CONSIDER ANTEROLATERAL ISCH EMIA ST DEVIATION AND MODERATE T-WAVE ABNORMALITY, CONSIDER INFERIOR ISCHEMIA ABNORMAL ECG PREVIOUS TRACING : 06/24/2017 12.26 Compared to the prior study, right bundle branch block has resolved. Inferolateral T-wave inversion is now present. DOCTOR: Marcio Bowman Interpretating Date/Time 06/26/2017 11:58:25
[2017-06-26] MEDS ORDERED: VANCOMYCIN 1,500 MG/NS 500 ML IV ONE ×2 (12:00)
[2017-06-26] MEDS ORDERED: DILTIAZEM HCL 25 MG/5 ML VIAL IV PUSH ONE (15:15)
[2017-06-26] MEDS: DILTIAZEM INJ 125 MG in SODIUM CHLORIDE 0.9% INJ 100 ML IV PRN ×2 (15:52→21:16)
--- NOTE | 2017-06-26 16:41 | PD.CARD.PN ---
Subjective Subjective Remarks Intubated. Unresponsive. Went into Afib with RVR. Just bolused with IV Cardizem and drip initiated. Objective Medications Current Medications Medications (Trade) Dose Ordered Sig/Michael Route Start Time Stop Time Status Last Admin Norepinephrine Bitartrate 250 ml @ 7.5 mls/hr TITRATE PRN IV 06/24/17 11:45 06/24/17 10:59 (Brethine Inj) 1 mg UNSCH PRN SQ 06/24/17 11:45 Epinephrine HCl 2 mg/Dextrose 252 ml @ 22.68 mls/ hr TITRATE PRN IV 06/24/17 11:45 06/24/17 11:34 (NS Flush) 2 ml UNSCH PRN IV FLUSH 06/24/17 14:00 (NS Flush) 2 ml BID IV FLUSH 06/24/17 21:00 06/26/17 09:21 (Tears Naturale Opth Soln) 1 drop TID EACH EYE 06/24/17 18:00 06/26/17 11:49 (Zofran Inj) 4 mg Q6H PRN IV PUSH 06/24/17 14:00 (Duoneb Neb) 1 ampule Q6HR NEB INH 06/24/17 16:00 06/26/17 07:15 (Albuterol Neb) 2.5 mg Q2HR NEB PRN INH 06/24/17 14:00 (Heparin Inj) 5,000 units Q12H SQ 06/24/17 15:00 06/26/17 15:50 Miscellaneous Information 1 Q361D XX 06/24/17 14:00 (Chlorhexidine 2% Cloth) 3 pack Taper DAILY@04 TOP 06/25/17 04:00 06/21/18 03:59 06/26/17 04:00 (Chlorhexidine 2% Cloth) 3 pack UNSCH PRN TOP 06/24/17 14:00 (Lisa-Colace) 1 tab BID PO 06/24/17 21:00 06/26/17 09:20 (Milk Of Magnesia Liq) 30 ml Q12H PRN PO 06/24/17 14:00 (Senokot) 17.2 mg Q12H PRN PO 06/24/17 14:00 (Dulcolax Supp) 10 mg DAILY PRN RECTAL 06/24/17 14:00 (Lactulose Liq) 30 ml DAILY PRN PO 06/24/17 14:00 (Peridex 0.12% Liq) 15 ml BID@08,20 MT 06/24/17 20:00 06/26/17 09:24 Propofol 100 ml @ 2.19 mls/hr TITRATE PRN IV 06/24/17 14:00 Fentanyl Citrate 250 ml @ 5 mls/hr TITRATE PRN IV 06/24/17 14:00 06/25/17 23:26 Potassium Chloride 100 ml @ 50 mls/hr Q2H PRN IV 06/24/17 14:00 Potassium Chloride 100 ml @ 50 mls/hr Q2H PRN IV 06/24/17 14:00 (K-Lyte Cl Eff) 50 meq UNSCH PRN PO 06/24/17 14:00 Potassium Chloride 100 ml @ 25 mls/hr UNSCH PRN IV 06/24/17 14:00 Potassium Chloride 100 ml @ 50 mls/hr Q2H PRN IV 06/24/17 14:00 Magnesium Sulfate 4 gm/Sodium Chloride 100 ml @ 50 mls/hr UNSCH PRN IV 06/24/17 14:00 (Mag-Ox) 800 mg UNSCH PRN PO 06/24/17 14:00 Magnesium Sulfate 2 gm/Sodium Chloride 100 ml @ 50 mls/hr UNSCH PRN IV 06/24/17 14:00 (K-Phos) 2,000 mg Q4H PRN PO 06/24/17 14:00 Sodium Phosphate 30 mmol/Sodium Chloride 250 ml @ 42 mls/hr UNSCH PRN IV 06/24/17 14:00 (K-Phos) 2,000 mg UNSCH PRN PO/TUBE 06/24/17 14:00 Potassium Phosphate 30 mmol/ Sodium Chloride 260 ml @ 42 mls/hr UNSCH PRN IV 06/24/17 14:00 Pharmacy Profile Note 0 ml @ 0 mls/hr UNSCH OTHER 06/24/17 15:00 (D50w (Vial) Inj) 50 ml UNSCH PRN IV PUSH 06/24/17 16:15 (Glucagon Inj) 1 mg UNSCH PRN OTHER 06/24/17 16:15 (NovoLIN R SUPPLEMENTAL SCALE) 1 Q4HR SQ 06/24/17 20:00 06/26/17 11:47 (Lactulose Liq) 30 ml DAILY PO 06/25/17 09:00 06/26/17 09:20 Piperacillin Sod/ Tazobactam Sod 100 ml @ 200 mls/hr Q8HR IV 06/25/17 14:00 06/26/17 12:34 (Pepcid Inj) 20 mg DAILY IV PUSH 06/26/17 09:00 06/26/17 09:00 (Beneprotein Powder) 1 pack TID G-TUBE 06/25/17 13:00 06/26/17 11:49 (Prinivil) 2.5 mg DAILY NG 06/26/17 09:00 06/26/17 09:20 (Coreg) 6.25 mg Q12HR PO 06/25/17 21:00 06/26/17 09:20 (Lopressor Inj) 5 mg Q6H PRN IV PUSH 06/25/17 19:45 06/26/17 14:39 Levetriacetam 100 ml @ 400 mls/hr Q12HR IV 06/26/17 10:30 06/26/17 11:47 Diltiazem HCl 125 mg/Sodium Chloride 125 ml @ 5 mls/hr TITRATE PRN IV 06/26/17 15:15 06/26/17 15:52 Vital Signs / I&O Vital Signs Date Time Temp Pulse Resp B/P (MAP) Pulse Ox O2 Delivery O2 Flow Rate FiO2 06/26/17 15:52 146 125/73 06/26/17 15:10 100 40 06/26/17 14:00 115 06/26/17 12:00 102.0 107 137/83 (101) 100 06/26/17 12:00 107 06/26/17 12:00 40 06/26/17 11:00 108 138/82 (100) 100 06/26/17 10:55 100 40 06/26/17 10:00 117 06/26/17 10:00 117 148/90 (109) 100 06/26/17 09:00 116 147/88 (107) 100 06/26/17 08:00 101.1 113 142/88 (106) 100 06/26/17 08:00 113 06/26/17 08:00 40 06/26/17 07:16 100 40 06/26/17 04:15 100 40 06/26/17 04:00 98.0 115 16 141/86 (104) 100 06/26/17 04:00 40 06/26/17 00:15 98.7 06/26/17 00:00 40 06/26/17 00:00 99.0 119 16 145/87 (106) 100 06/25/17 23:00 100 40 06/25/17 20:00 98.1 126 16 150/91 (110) 100 06/25/17 20:00 40 06/25/17 19:31 100 40 06/25/17 18:00 121 150/93 (112) 100 06/25/17 18:00 121 06/25/17 17:00 120 153/93 (113) 100 I/O 06/25/17 06/25/17 06/25/17 06/26/17 06/26/17 06/26/17 07:00 15:00 23:00 07:00 15:00 23:00 Intake Total 200 ml 713.5 ml 2454 ml 392 ml Output Total 150 ml 1850 ml 700 ml Balance 50 ml 713.5 ml 604 ml -308 ml Intake Oral 0 ml 0 ml IV Total 713.5 ml 2454 ml 392 ml Other 200 ml Output Urine Total 150 ml 1850 ml 700 ml # Bowel Movements 0 0 0 Physical Exam GENERAL: Intubated. No distress. SKIN: Warm and dry. HEAD: Atraumatic. Normocephalic. EYES: Pupils fixed. No scleral icterus. No injection or drainage. ENT: No nasal bleeding or discharge. Mucous membranes pink and moist. NECK: Trachea midline. No JVD. CARDIOVASCULAR: Irregularly irregular rhythm. RESPIRATORY: No accessory muscle use. Clear to auscultation. Breath sounds equal bilaterally. Per vent. FIO2 40%. GASTROINTESTINAL: Abdomen soft, non-tender, nondistended. MUSCULOSKELETAL: Extremities without clubbing, cyanosis. Trace edema. No obvious deformities. NEUROLOGICAL: Unresponsive. No response to sternal rub. No gag. PSYCHIATRIC: Unresponsive. Laboratory Laboratory Tests Test 06/25/17 20:19 06/26/17 03:15 06/26/17 11:30 06/26/17 11:38 Lactic Acid Level 1.4 mmol/L 1.1 mmol/L 1.9 mmol/L White Blood Count 25.9 TH/MM3 Red Blood Count 3.85 MIL/MM3 Hemoglobin 12.0 GM/DL Hematocrit 35.5 % Mean Corpuscular Volume 92.2 FL Mean Corpuscular Hemoglobin 31.1 PG Mean Corpuscular Hemoglobin Concent 33.7 % Red Cell Distribution Width 12.6 % Platelet Count 284 TH/MM3 Mean Platelet Volume 7.1 FL Neutrophils (%) (Auto) 88.4 % Lymphocytes (%) (Auto) 6.5 % Monocytes (%) (Auto) 4.6 % Eosinophils (%) (Auto) 0.0 % Basophils (%) (Auto) 0.5 % Neutrophils # (Auto) 22.9 TH/MM3 Lymphocytes # (Auto) 1.7 TH/MM3 Monocytes # (Auto) 1.2 TH/MM3 Eosinophils # (Auto) 0.0 TH/MM3 Basophils # (Auto) 0.1 TH/MM3 CBC Comment DIFF FINAL Differential Comment Blood Urea Nitrogen 33 MG/DL Creatinine 1.75 MG/DL Random Glucose 231 MG/DL Total Protein 6.8 GM/DL Albumin 2.6 GM/DL Calcium Level 9.1 MG/DL Phosphorus Level 3.1 MG/DL Magnesium Level 2.0 MG/DL Alkaline Phosphatase 118 U/L Aspartate Amino Transf (AST/SGOT) 111 U/L Alanine Aminotransferase (ALT/SGPT) 102 U/L Total Bilirubin 0.4 MG/DL Sodium Level 143 MEQ/L Potassium Level 3.7 MEQ/L Chloride Level 109 MEQ/L Carbon Dioxide Level 24.8 MEQ/L Anion Gap 9 MEQ/L Estimat Glomerular Filtration Rate 30 ML/MIN Troponin I 0.51 NG/ML Vancomycin Level Trough 12.2 MCG/ML Random Vancomycin Level 12.1 COMMENT Random Cortisol 52.4 MCG/DL Imaging Last 24 hours Impressions Chest X-Ray 06/26/17 0600 Signed Impressions: Service Date/Time: Monday, June 26, 2017 03:38 - CONCLUSION: No infiltrates seen. Christopher Mcknight MD Assessment and Plan Assessment and Plan S/P Cardiac Arrest Possible seizure Anoxic brain injury Cardiomyopathy with EF <20% S/P ICD History of R parietal CVA Moderate mitral regurgitation Atrial Fibrillation with RVR Cardiac arrest secondary to pump failure. EF <20%. No ICD therapy was administered. Currently in afib, rate 120's. Continue cardizem, beta talia. Continue supportive care. Continue beta talia, OLE-I. Poor prognosis. Dr. Stinson to follow tomorrow. Code Status Full Discussed Condition With Dr. Anjali Barrett,Jannette Draper JANITOR HELPER Jun 26, 2017 16:41
[2017-06-27] VITALS (23 sets, daily range): BP systolic 102–145; BP diastolic 56–81; PULSE 67–108; RESP 16; TEMP 98.2–100.4; O2SAT 100
[2017-06-27] MEDS: HEPARIN SODIUM - SQ 10,000 UNITS/ML VIAL SQ SCH ×2 (03:46→13:11)
[2017-06-27] MEDS: INSULIN NovoLIN REGULAR SUPPLEMENTAL SCALE SQ SCH ×5 (03:46→20:00)
[2017-06-27] MEDS: CHLORHEXIDINE GLUCONATE 2 % 1 PACK (2 CLOTHS) TOP SCH (03:47)
[2017-06-27] MEDS: RESP: ALBUTEROL 2.5 MG/IPRATROPIUM 0.5 MG NEB (SCH) INH ×4 (04:12→19:30)
[2017-06-27 04:14] LABS: HEMATOCRIT 34.9 % (35.0-46.0); MEAN CELL VOLUME 93.5 FL (80.0-100.0); MEAN CORPUSCULAR HEMOGLOBIN 30.8 PG (27.0-34.0); PLATELET COUNT 284 TH/MM3 (150-450); RED BLOOD COUNT 3.73 MIL/MM3 (4.00-5.30); RED CELL DISTRIBUTION WIDTH 12.7 % (11.6-17.2); REVIEW FLAG FINAL; WHITE BLOOD COUNT 23.2 TH/MM3 (4.0-11.0)
[2017-06-27 04:29] LABS: BICARBONATE 24.8 MEQ/L (21.0-32.0); INDIRECT BILIRUBIN 0.4 MG/DL (0.0-0.8); POTASSIUM 3.2 MEQ/L (3.5-5.1); TOTAL BILIRUBIN ADULT 0.5 MG/DL (0.2-1.0)
[2017-06-27] MEDS: PIPERACIL-TAZO 4.5 GM PREMIX 100 ML IV SCH ×3 (05:07→20:24)
[2017-06-27] MEDS: DILTIAZEM INJ 125 MG in SODIUM CHLORIDE 0.9% INJ 100 ML IV PRN (05:45)
--- NOTE | 2017-06-27 07:57 | HHI.PR ---
Objective Vital Signs Date Time Temp Pulse Resp B/P (MAP) Pulse Ox O2 Delivery O2 Flow Rate FiO2 06/27/17 07:52 100 40 06/27/17 05:45 109 136/95 06/27/17 04:13 100 40 06/27/17 04:00 98.2 105 16 132/67 (88) 100 06/27/17 04:00 40 06/27/17 01:59 100 40 06/27/17 00:00 98.9 96 16 129/71 (90) 100 06/27/17 00:00 40 06/26/17 22:58 100 40 06/26/17 22:04 73 122/61 06/26/17 21:16 89 124/61 06/26/17 20:00 99.1 116 16 101/71 (81) 100 06/26/17 20:00 40 06/26/17 19:36 100 40 06/26/17 18:11 128 06/26/17 17:00 128 125/75 06/26/17 17:00 128 125/75 (92) 100 06/26/17 16:30 144 119/77 06/26/17 16:00 40 06/26/17 16:00 138 06/26/17 16:00 99.2 138 124/83 (97) 100 06/26/17 15:52 146 125/73 06/26/17 15:10 100 40 06/26/17 15:00 172 111/76 (88) 100 06/26/17 14:00 115 06/26/17 14:00 115 140/85 (103) 100 06/26/17 13:00 110 140/85 (103) 100 06/26/17 12:00 102.0 107 137/83 (101) 100 06/26/17 12:00 107 06/26/17 12:00 40 06/26/17 11:00 108 138/82 (100) 100 06/26/17 10:55 100 40 06/26/17 10:00 117 06/26/17 10:00 117 148/90 (109) 100 06/26/17 09:00 116 147/88 (107) 100 06/26/17 08:00 101.1 113 142/88 (106) 100 06/26/17 08:00 113 06/26/17 08:00 40 I/O 06/26/17 06/26/17 06/26/17 06/27/17 06/27/17 06/27/17 07:00 15:00 23:00 07:00 15:00 23:00 Intake Total 392 ml 615 ml 990 ml 793 ml Output Total 700 ml 650 ml 775 ml Balance -308 ml 615 ml 340 ml 18 ml Intake Oral 0 ml 0 ml 0 ml IV Total 392 ml 615 ml 285 ml 200 ml Tube Feeding 705 ml 593 ml Output Urine Total 700 ml 650 ml 775 ml # Bowel Movements 0 0 0 Result Diagram: 06/27/17 03506/27/17351 Objective Remarks off sedatives sinceyest dolls nl comatose pupil = to nasal stim some bue decerebrate posture localized with head turn though Assessment and Plan Assessment and Plan imp eeg shows lower amplitudes burst suppression could be cw some inc edema? 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
[2017-06-27] MEDS: BENEPROTEIN POWDER 1 PACK G-TUBE SCH ×3 (09:00→18:00)
[2017-06-27] MEDS: ARTIFICIAL TEARS OPTH SOLN 15 ML BTL EACH EYE SCH ×3 (09:00→18:00)
[2017-06-27] MEDS: levETIRAcetam 1000 MG INJ 100 ML IV SCH ×2 (10:04→20:24)
[2017-06-27] MEDS: FAMOTIDINE 20 MG/2 ML VIAL IV PUSH SCH (10:04)
[2017-06-27] MEDS: SODIUM CHLORIDE 0.9% FLUSH 10 ML FLUSH IV FLUSH SCH ×2 (10:04→20:24)
[2017-06-27] MEDS: DOCUSATE SODIUM 50 MG/SENNA 8.6 MG TAB PO SCH ×2 (10:06→20:23)
[2017-06-27] MEDS: LACTULOSE SYRUP 20 GM/30 ML CUP PO SCH (10:06)
[2017-06-27] MEDS: LISINOPRIL 5 MG TAB NG SCH (10:06)
[2017-06-27] MEDS: CARVEDILOL 6.25 MG TAB PO SCH ×2 (10:06→20:23)
[2017-06-27] MEDS: CHLORHEXIDINE 0.12% (ORAL KIT) 15 ML CUP MT SCH ×2 (10:06→20:26)
--- NOTE | 2017-06-27 10:58 | PD.CONS ---
Consult Service Palliative Care Consult Requested By Dr. Agnes Crystal Primary Care Physician Unknown Reason for Consultation a. To assist with evaluation and management of symptoms including: Encephalopathy, dyspnea b. To assist medical decision maker(s) with: better understanding of current medical conditions; weighing benefits/burdens of medical treatment options; making medical treatment decisions. ([place]) HPI History of Present Illness This is an unfortunate 52-year-old female with a history of bipolar disorder, depression, hypertension, nonischemic cardiomyopathy with ejection fraction around 20%, brought to [facility] by EMS in cardiac arrest. EMS was summoned for possible seizure. Upon arrival she was given 2 mg of IV Ativan at which time she went into cardiac arrest. EMS administered 3 rounds of epinephrine and one amp of bicarbonate in the field with another 3 rounds of epinephrine given in the ED with ROSC after 40 minutes of resuscitation attempt. Resuscitation initiated approximately 10:10 with arrival to the emergency department around 10:40, at which time she was found to be in PEA and given amiodarone 300 mg, bicarbonate 75 mEq, Narcan 2 mg, magnesium 2 g and calcium 1 g. At 10:50 a bradycardic rhythm was found and atropine given with return of sinus rhythm at 10:52. The device was interrogated and no therapy was found to have been delivered. Initial programming of the device per Dr. Stinson's operative note indicates it was programmed with a lower lobe rate limit of 50 with 2 tachycardia zones, a monitoring zone with no therapy at 150, a VF zone at 182, with first detection 24/11/23 and first shock 5 J second shock of 15 J followed by four 35 J shocks. She had a previous cardiac arrest February 11, 2017 with successful resuscitation in about 7 minutes. Cardiology evaluation at that time indicated need for a defibrillator and at that time a single-chamber Medtronic ICD was implanted by Dr. Fredy Stinson. She had previously been seen at [facility] in November and found to have significant ischemic cardiomyopathy by cardiac catheterization and was sent home with a LifeVest. She had intermittent compliance with the LifeVest during that time, culminating in the area for mentioned cardiac arrest. She has a long history of medical noncompliance and had previously been hospitalized for suicide attempts in 2001 and again in 2005 involving acetaminophen, trazodone and Wellbutrin overdose. History obtained from her son, Damián, who is her power of nursing agency manager, indicates that she had not been taking her medications for the prior 3 weeks. She was found to be positive for amphetamines and opioids on admission, and fresh track mendez are noted in her left ACF. ED course: * Laboratory: WBC 19.5, hemoglobin 10.8, HCT 34.0, PLT 341, sodium 143, potassium 4.1, BUN 18, creatinine 1.24, alkaline phosphatase 131, AST 294, ALT 151, lactic acid 10.9, ammonia 40, total creatinine kinase 256, troponin 0.04, acetaminophen 3.3, ethyl alcohol less than 3, ABG pH 7.21, PCO2 47, PaO2 183, HCO3 18, Андрей excess -8.5, saturation 98% on 100% FiO2 via PRVC/AC. Urine drug screen is positive for opiates and amphetamines. * Radiology: Venous Doppler was negative for occlusive thrombosis. Ultrasound of the abdomen shows gallbladder wall thickening and small amount of lisa- cholecystic fluid with no evidence of cholelithiasis, questionable for possible acalculous cholecystitis. Liver is enlarged with no focal abnormality, nonobstructing right renal calculus. 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 Interim history: * Neurology: EEG performed 06/25 shows burst suppression pattern consistent with a severe diffuse cerebral disturbance. Follow-up study done 06/26 shows low amplitude background with a burst suppression not as sharp as previous study , phase reversing over T3 noted. Amplitudes being a bit lower could indicate some progressive brain edema. No spikes seen, no ongoing seizure noted. Consultations: * Neurology: likely significant anoxic damage. Would consider 24-48 hours off sedation and if no better, recommending comfort measures. * Cardiology: Ejection fraction less than 20%, non-ischemic cardiomyopathy. Notes poor prognosis secondary to pump failure. At this evaluation patient is seen in room 500, intubated, unresponsive, not sedated. No corneal reflexes, decerebrate posturing on the upper extremities, no withdrawal to painful stimuli in lower extremities, minimal gag reflex. Spoke with son, Damián, who is the power of nursing agency manager and he plans to come to the hospital later today. Left message with son, Marcio, to try to arrange family meeting. There is one more son, Marko, whose contact information is not yet available. . Function/Cognitive Trajectory She has had some progressive shortness of breath and fatigue, however still was able to take care of her elderly mother and maintain her ADLs independently. . ([place]) Review of Systems ROS Limitations: Intubated, Altered Mental Status, Unresponsive ([place]) Past Family Social History Coded Allergies: No Allergy Information Available (Unverified , 06/24/17) Patient unresponsive Past Medical History Bipolar disorder Depression Hypertension Polysubstance abuse Nonischemic cardiomyopathy Uncontrolled diabetes mellitus Cardiac arrest Recurrent ventricular tachycardia Questionable schizophrenia . Past Surgical History Hysterectomy Halo ring placement for cervical traction secondary to left C6-C7 jumped facet with fracture with associated C7 vertebral body burst fracture Single-chamber Medtronic ICD implantation 02/21 Appendectomy Tonsillectomy ORIF bilateral elbows Left shoulder repair Repair of plateau fracture to left lower extremity Bladder neck suspension . Reported Medications None reported. . Current Medications Medications (Trade) Dose Ordered Sig/Michael Route Start Time Stop Time Status Last Admin Norepinephrine Bitartrate 250 ml @ 7.5 mls/hr TITRATE PRN IV 06/24/17 11:45 06/24/17 10:59 (Brethine Inj) 1 mg UNSCH PRN SQ 06/24/17 11:45 Epinephrine HCl 2 mg/Dextrose 252 ml @ 22.68 mls/ hr TITRATE PRN IV 06/24/17 11:45 06/24/17 11:34 (NS Flush) 2 ml UNSCH PRN IV FLUSH 06/24/17 14:00 (NS Flush) 2 ml BID IV FLUSH 06/24/17 21:00 06/26/17 20:17 (Tears Naturale Opth Soln) 1 drop TID EACH EYE 06/24/17 18:00 06/26/17 17:09 (Zofran Inj) 4 mg Q6H PRN IV PUSH 06/24/17 14:00 (Duoneb Neb) 1 ampule Q6HR NEB INH 06/24/17 16:00 06/27/17 07:52 (Albuterol Neb) 2.5 mg Q2HR NEB PRN INH 06/24/17 14:00 (Heparin Inj) 5,000 units Q12H SQ 06/24/17 15:00 06/27/17 03:46 Miscellaneous Information 1 Q361D XX 06/24/17 14:00 (Chlorhexidine 2% Cloth) 3 pack Taper DAILY@04 TOP 06/25/17 04:00 06/21/18 03:59 06/27/17 03:47 (Chlorhexidine 2% Cloth) 3 pack UNSCH PRN TOP 06/24/17 14:00 (Lisa-Colace) 1 tab BID PO 06/24/17 21:00 06/26/17 20:18 (Milk Of Magnesia Liq) 30 ml Q12H PRN PO 06/24/17 14:00 (Senokot) 17.2 mg Q12H PRN PO 06/24/17 14:00 (Dulcolax Supp) 10 mg DAILY PRN RECTAL 06/24/17 14:00 (Lactulose Liq) 30 ml DAILY PRN PO 06/24/17 14:00 (Peridex 0.12% Liq) 15 ml BID@08,20 MT 06/24/17 20:00 06/26/17 20:00 Propofol 100 ml @ 2.19 mls/hr TITRATE PRN IV 06/24/17 14:00 Fentanyl Citrate 250 ml @ 5 mls/hr TITRATE PRN IV 06/24/17 14:00 06/25/17 23:26 Potassium Chloride 100 ml @ 50 mls/hr Q2H PRN IV 06/24/17 14:00 06/27/17 05:03 Potassium Chloride 100 ml @ 50 mls/hr Q2H PRN IV 06/24/17 14:00 (K-Lyte Cl Eff) 50 meq UNSCH PRN PO 06/24/17 14:00 Potassium Chloride 100 ml @ 25 mls/hr UNSCH PRN IV 06/24/17 14:00 Potassium Chloride 100 ml @ 50 mls/hr Q2H PRN IV 06/24/17 14:00 Magnesium Sulfate 4 gm/Sodium Chloride 100 ml @ 50 mls/hr UNSCH PRN IV 06/24/17 14:00 (Mag-Ox) 800 mg UNSCH PRN PO 06/24/17 14:00 Magnesium Sulfate 2 gm/Sodium Chloride 100 ml @ 50 mls/hr UNSCH PRN IV 06/24/17 14:00 (K-Phos) 2,000 mg Q4H PRN PO 06/24/17 14:00 Sodium Phosphate 30 mmol/Sodium Chloride 250 ml @ 42 mls/hr UNSCH PRN IV 06/24/17 14:00 (K-Phos) 2,000 mg UNSCH PRN PO/TUBE 06/24/17 14:00 Potassium Phosphate 30 mmol/ Sodium Chloride 260 ml @ 42 mls/hr UNSCH PRN IV 06/24/17 14:00 Pharmacy Profile Note 0 ml @ 0 mls/hr UNSCH OTHER 06/24/17 15:00 (D50w (Vial) Inj) 50 ml UNSCH PRN IV PUSH 06/24/17 16:15 (Glucagon Inj) 1 mg UNSCH PRN OTHER 06/24/17 16:15 (NovoLIN R SUPPLEMENTAL SCALE) 1 Q4HR SQ 06/24/17 20:00 06/26/17 23:55 (Lactulose Liq) 30 ml DAILY PO 06/25/17 09:00 06/26/17 09:20 Piperacillin Sod/ Tazobactam Sod 100 ml @ 200 mls/hr Q8HR IV 06/25/17 14:00 06/27/17 05:07 (Pepcid Inj) 20 mg DAILY IV PUSH 06/26/17 09:00 06/26/17 09:00 (Beneprotein Powder) 1 pack TID G-TUBE 06/25/17 13:00 06/26/17 17:09 (Prinivil) 2.5 mg DAILY NG 06/26/17 09:00 06/26/17 09:20 (Coreg) 6.25 mg Q12HR PO 06/25/17 21:00 06/26/17 20:18 (Lopressor Inj) 5 mg Q6H PRN IV PUSH 06/25/17 19:45 06/26/17 14:39 Levetriacetam 100 ml @ 400 mls/hr Q12HR IV 06/26/17 10:30 06/26/17 20:17 Diltiazem HCl 125 mg/Sodium Chloride 125 ml @ 5 mls/hr TITRATE PRN IV 06/26/17 15:15 06/27/17 05:45 Family History Her mother is alive at age 77 with a history of diabetes mellitus, congestive heart failure and CVAs. Her father in his late 50s of throat cancer. . Substance Use Tobacco: Reports show no use of tobacco. Alcohol: Reports show no use of alcohol. Prescription med abuse: Noncompliant with medications. Illicits: Drug screen positive for opiates and amphetamines. Fresh track mendez on left ACF. . Psychosocial History She was born in [facility] where she lived most of her life, moving to [place] to take care of her mother 10-15 years ago. She was Islam but not practicing recently. It is the belief of her son, Damián, that she would like sacrament of the sick. She was twice, first time to the father of her 3 children and then Mr. Vela, from home she is legally . Per the family he was from [place] and is no longer living in this country. . Spiritual/Cultural Factors She was raised as a Islam but is not currently practicing. Sacraments of the sick will be requested. . ([place]) Living Will: Never completed Health Care Surrogate: Never completed Durable Power of Seed Cutter: Copy in medical record (son, Damián, is DPOA, HCPOA ) ([place]) Physical Exam Vital Signs Date Time Temp Pulse Resp B/P (MAP) Pulse Ox O2 Delivery O2 Flow Rate FiO2 06/27/17 07:52 100 40 06/27/17 05:45 109 136/95 06/27/17 04:13 100 40 06/27/17 04:00 98.2 105 16 132/67 (88) 100 06/27/17 04:00 40 06/27/17 01:59 100 40 06/27/17 00:00 98.9 96 16 129/71 (90) 100 06/27/17 00:00 40 06/26/17 22:58 100 40 06/26/17 22:04 73 122/61 06/26/17 21:16 89 124/61 06/26/17 20:00 99.1 116 16 101/71 (81) 100 06/26/17 20:00 40 06/26/17 19:36 100 40 06/26/17 18:11 128 06/26/17 17:00 128 125/75 06/26/17 17:00 128 125/75 (92) 100 06/26/17 16:30 144 119/77 06/26/17 16:00 40 06/26/17 16:00 138 06/26/17 16:00 99.2 138 124/83 (97) 100 06/26/17 15:52 146 125/73 06/26/17 15:10 100 40 06/26/17 15:00 172 111/76 (88) 100 06/26/17 14:00 115 06/26/17 14:00 115 140/85 (103) 100 06/26/17 13:00 110 140/85 (103) 100 06/26/17 12:00 102.0 107 137/83 (101) 100 06/26/17 12:00 107 06/26/17 12:00 40 06/26/17 11:00 108 138/82 (100) 100 06/26/17 10:55 100 40 Exam CONSTITUTIONAL/GENERAL: This is an adequately nourished patient, intubated, unresponsive, not sedated. TUBES/LINES/DRAINS: R IJ central line, L IJ central line, ETT and OGT, Fernandez SKIN: Puncture sites seen on left ACF, otherwise warm, dry, intact. HEAD: Atraumatic. Normocephalic. EYES: Pupils 4 mm, round and nonreactive. Fundi not examined. ENT: Nose without bleeding or purulent drainage. Oral mucosa dry. NECK: Trachea midline. Supple. No palpable thyroid enlargement or nodularity. CARDIOVASCULAR: Regular rate and irregular rhythm without murmurs, gallops, or rubs. No JVD. Peripheral pulses symmetric. RESPIRATORY/CHEST: Some spontaneous respirations over ventilator rate, breath sounds clear, diminished. GASTROINTESTINAL: Abdomen soft, nondistended. Bowel sounds absent. GENITOURINARY: Without palpable bladder distension. Fernandez catheter in place. MUSCULOSKELETAL: Extremities without cyanosis. 1-2+ generalized edema. No mottling or clubbing. NEUROLOGICAL: Unresponsive with decerebrate posturing. PSYCHIATRIC: Unresponsive, unsedated. . ([place]) Diagnostic Tests Laboratory Laboratory Tests Test 06/24/17 11:40 06/24/17 12:00 06/24/17 13:07 06/24/17 14:44 White Blood Count 19.5 TH/MM3 (4.0-11.0) Red Blood Count 3.53 MIL/MM3 (4.00-5.30) Hemoglobin 10.8 GM/DL (11.6-15.3) Hematocrit 34.0 % (35.0-46.0) Mean Corpuscular Volume 96.3 FL (80.0-100.0) Mean Corpuscular Hemoglobin 30.6 PG (27.0-34.0) Mean Corpuscular Hemoglobin Concent 31.8 % (32.0-36.0) Red Cell Distribution Width 12.5 % (11.6-17.2) Platelet Count 341 TH/MM3 (150-450) Mean Platelet Volume 6.8 FL (7.0-11.0) Neutrophils (%) (Auto) 74.1 % (16.0-70.0) Lymphocytes (%) (Auto) 23.4 % (9.0-44.0) Monocytes (%) (Auto) 1.9 % (0.0-8.0) Eosinophils (%) (Auto) 0.4 % (0.0-4.0) Basophils (%) (Auto) 0.2 % (0.0-2.0) Neutrophils # (Auto) 14.5 TH/MM3 (1.8-7.7) Lymphocytes # (Auto) 4.6 TH/MM3 (1.0-4.8) Monocytes # (Auto) 0.4 TH/MM3 (0-0.9) Eosinophils # (Auto) 0.1 TH/MM3 (0-0.4) Basophils # (Auto) 0.0 TH/MM3 (0-0.2) CBC Comment DIFF FINAL Differential Comment Prothrombin Time 11.4 SEC (9.8-11.6) Prothromb Time International Ratio 1.0 RATIO Activated Partial Thromboplast Time 21.2 SEC (24.3-30.1) Blood Urea Nitrogen 18 MG/DL (7-18) Creatinine 1.24 MG/DL (0.50-1.00) Random Glucose 411 MG/DL (74-106) Total Protein 5.7 GM/DL (6.4-8.2) Albumin 2.4 GM/DL (3.4-5.0) Calcium Level 9.0 MG/DL (8.5-10.1) Alkaline Phosphatase 131 U/L (45-117) Aspartate Amino Transf (AST/SGOT) 294 U/L (15-37) Alanine Aminotransferase (ALT/SGPT) 151 U/L (10-53) Total Bilirubin 0.3 MG/DL (0.2-1.0) Sodium Level 143 MEQ/L (136-145) Potassium Level 4.1 MEQ/L (3.5-5.1) Chloride Level 108 MEQ/L (98-107) Carbon Dioxide Level 16.7 MEQ/L (21.0-32.0) Anion Gap 18 MEQ/L (5-15) Estimat Glomerular Filtration Rate 37 ML/MIN (>89) Lactic Acid Level 10.9 mmol/L (0.4-2.0) 2.1 mmol/L (0.4-2.0) Ammonia 40 MCMOL/L (11-32) Total Creatine Kinase 256 U/L (26-192) Creatine Kinase MB 4.4 NG/ML (0.5-3.6) Creatine Kinase MB % 1.7 % (0.0-4.0) Troponin I 0.04 NG/ML (0.02-0.05) Salicylates Level LESS THAN 1.7 MG/DL Acetaminophen Level 3.3 MCG/ML (10.0-30.0) Ethyl Alcohol Level LESS THAN 3 MG/DL (0-5) Blood Gas Puncture Site LT RADIAL Blood Gas Patient Temperature 98.6 Blood Gas HCO3 18 mmol/L (22-26) Blood Gas Base Excess -8.5 mmol/L (-2-2) Blood Gas Oxygen Saturation 98 % (90-100) Arterial Blood pH 7.21 (7.380-7.420) Arterial Blood Partial Pressure CO2 47 mmHg (38-42) Arterial Blood Partial Pressure O2 183 mmHG (61-120) Arterial Blood Oxygen Content 16.0 Vol % (12.0-20.0) Arterial Blood Carboxyhemoglobin 0.7 % (0-4) Arterial Blood Methemoglobin 0.8 % (0-2) Blood Gas Hemoglobin 11.4 G/DL (12.0-16.0) Oxygen Delivery Device VENTILATOR Blood Gas Ventilator Setting PRVC/AC Blood Gas Inspired Oxygen 100 % Urine Color YELLOW (YELLW/STRAW) Urine Turbidity HAZY (CLEAR) Urine pH 6.0 (5.0-8.5) Urine Specific Watson 1.018 (1.002-1.035) Urine Protein 300 mg/dL (NEG-TRACE) Urine Glucose (UA) 1000 mg/dL (NEG) Urine Ketones NEG mg/dL (NEG) Urine Occult Blood MOD (NEG) Urine Nitrite NEG (NEG) Urine Bilirubin NEG (NEG) Urine Urobilinogen LESS THAN 2.0 MG/DL (LESS Urine Leukocyte Esterase NEG (NEG) Urine RBC 4-9 /hpf (0-3) Urine WBC 0-2 /hpf (0-5) Urine Squamous Epithelial Cells 6-8 /hpf (0-5) Urine Amorphous Sediment MANY Urine Bacteria FEW /hpf (NONE) Microscopic Urinalysis Comment CATH-CULTURE IND Urine Opiates Screen POS (NEG) Urine Barbiturates Screen NEG (NEG) Urine Amphetamines Screen POS (NEG) Urine Benzodiazepines Screen NEG (NEG) Urine Cocaine Screen NEG (NEG) Urine Cannabinoids Screen NEG (NEG) Phenytoin (Dilantin) Level 0.8 MCG/ML (10.0-20.0) Test 06/24/17 15:03 06/24/17 15:40 06/24/17 17:00 06/24/17 23:38 Blood Gas Puncture Site LT RADIAL Blood Gas Patient Temperature 98.6 Blood Gas HCO3 23 mmol/L (22-26) Blood Gas Base Excess -1.3 mmol/L (-2-2) Blood Gas Oxygen Saturation 99 % (90-100) Arterial Blood pH 7.39 (7.380-7.420) Arterial Blood Partial Pressure CO2 39 mmHg (38-42) Arterial Blood Partial Pressure O2 422 mmHG (61-120) Arterial Blood Oxygen Content 17.7 Vol % (12.0-20.0) Arterial Blood Carboxyhemoglobin 0.8 % (0-4) Arterial Blood Methemoglobin 0.7 % (0-2) Blood Gas Hemoglobin 12.0 G/DL (12.0-16.0) Oxygen Delivery Device PRVC/AC Blood Gas Inspired Oxygen 100 % Urine Eosinophils NONE SEEN /HPF (NONE SEEN) Urine Random Creatinine 89.8 MG/DL Urine Random Sodium 180 MEQ/L Nasal Screen MRSA (PCR) MRSA DETECTED (NOT DETECT) Hemoglobin A1c 7.0 % (4.3-6.0) Lactic Acid Level 2.5 mmol/L (0.4-2.0) 2.2 mmol/L (0.4-2.0) Ammonia 29 MCMOL/L (11-32) Troponin I 0.23 NG/ML (0.02-0.05) 0.33 NG/ML (0.02-0.05) Amylase Level 346 U/L (25-115) Lipase 134 U/L (73-393) Thyroid Stimulating Hormone 3rd Gen 0.609 uIU/ML (0.358-3.740) Valproic Acid (Depakene) Level 5 MCG/ML (50-100) Test 06/25/17 03:10 06/25/17 11:55 06/25/17 20:19 06/26/17 03:15 White Blood Count 20.2 TH/MM3 (4.0-11.0) 25.9 TH/MM3 (4.0-11.0) Red Blood Count 3.93 MIL/MM3 (4.00-5.30) 3.85 MIL/MM3 (4.00-5.30) Hemoglobin 12.3 GM/DL (11.6-15.3) 12.0 GM/DL (11.6-15.3) Hematocrit 36.2 % (35.0-46.0) 35.5 % (35.0-46.0) Mean Corpuscular Volume 92.2 FL (80.0-100.0) 92.2 FL (80.0-100.0) Mean Corpuscular Hemoglobin 31.2 PG (27.0-34.0) 31.1 PG (27.0-34.0) Mean Corpuscular Hemoglobin Concent 33.8 % (32.0-36.0) 33.7 % (32.0-36.0) Red Cell Distribution Width 12.5 % (11.6-17.2) 12.6 % (11.6-17.2) Platelet Count 306 TH/MM3 (150-450) 284 TH/MM3 (150-450) Mean Platelet Volume 6.8 FL (7.0-11.0) 7.1 FL (7.0-11.0) Neutrophils (%) (Auto) 93.1 % (16.0-70.0) 88.4 % (16.0-70.0) Lymphocytes (%) (Auto) 3.8 % (9.0-44.0) 6.5 % (9.0-44.0) Monocytes (%) (Auto) 2.8 % (0.0-8.0) 4.6 % (0.0-8.0) Eosinophils (%) (Auto) 0.0 % (0.0-4.0) 0.0 % (0.0-4.0) Basophils (%) (Auto) 0.3 % (0.0-2.0) 0.5 % (0.0-2.0) Neutrophils # (Auto) 18.8 TH/MM3 (1.8-7.7) 22.9 TH/MM3 (1.8-7.7) Lymphocytes # (Auto) 0.8 TH/MM3 (1.0-4.8) 1.7 TH/MM3 (1.0-4.8) Monocytes # (Auto) 0.6 TH/MM3 (0-0.9) 1.2 TH/MM3 (0-0.9) Eosinophils # (Auto) 0.0 TH/MM3 (0-0.4) 0.0 TH/MM3 (0-0.4) Basophils # (Auto) 0.1 TH/MM3 (0-0.2) 0.1 TH/MM3 (0-0.2) CBC Comment DIFF FINAL DIFF FINAL Differential Comment Prothrombin Time 12.0 SEC (9.8-11.6) Prothromb Time International Ratio 1.1 RATIO Activated Partial Thromboplast Time 25.7 SEC (24.3-30.1) Blood Urea Nitrogen 29 MG/DL (7-18) 33 MG/DL (7-18) Creatinine 1.78 MG/DL (0.50-1.00) 1.75 MG/DL (0.50-1.00) Random Glucose 297 MG/DL (74-106) 231 MG/DL (74-106) Total Protein 6.8 GM/DL (6.4-8.2) 6.8 GM/DL (6.4-8.2) Albumin 2.8 GM/DL (3.4-5.0) 2.6 GM/DL (3.4-5.0) Calcium Level 8.9 MG/DL (8.5-10.1) 9.1 MG/DL (8.5-10.1) Phosphorus Level 2.4 MG/DL (2.5-4.9) 3.1 MG/DL (2.5-4.9) Magnesium Level 2.2 MG/DL (1.5-2.5) 2.0 MG/DL (1.5-2.5) Alkaline Phosphatase 136 U/L (45-117) 118 U/L (45-117) Aspartate Amino Transf (AST/SGOT) 167 U/L (15-37) 111 U/L (15-37) Alanine Aminotransferase (ALT/SGPT) 135 U/L (10-53) 102 U/L (10-53) Total Bilirubin 0.5 MG/DL (0.2-1.0) 0.4 MG/DL (0.2-1.0) Sodium Level 141 MEQ/L (136-145) 143 MEQ/L (136-145) Potassium Level 4.4 MEQ/L (3.5-5.1) 3.7 MEQ/L (3.5-5.1) Chloride Level 108 MEQ/L (98-107) 109 MEQ/L (98-107) Carbon Dioxide Level 21.2 MEQ/L (21.0-32.0) 24.8 MEQ/L (21.0-32.0) Anion Gap 12 MEQ/L (5-15) 9 MEQ/L (5-15) Estimat Glomerular Filtration Rate 25 ML/MIN (>89) 30 ML/MIN (>89) Lactic Acid Level 2.2 mmol/L (0.4-2.0) 2.6 mmol/L (0.4-2.0) 1.4 mmol/L (0.4-2.0) 1.1 mmol/L (0.4-2.0) Troponin I 0.43 NG/ML (0.02-0.05) 0.51 NG/ML (0.02-0.05) Vancomycin Level Trough 8.4 MCG/ML (5.0-10.0) 12.2 MCG/ML (5.0-10.0) Random Vancomycin Level 12.1 COMMENT Test 06/26/17 11:30 06/26/17 11:38 06/26/17 18:50 06/26/17 23:41 Random Cortisol 52.4 MCG/DL Lactic Acid Level 1.9 mmol/L (0.4-2.0) 1.3 mmol/L (0.4-2.0) 1.0 mmol/L (0.4-2.0) Test 06/27/17 03:52 White Blood Count 23.2 TH/MM3 (4.0-11.0) Red Blood Count 3.73 MIL/MM3 (4.00-5.30) Hemoglobin 11.5 GM/DL (11.6-15.3) Hematocrit 34.9 % (35.0-46.0) Mean Corpuscular Volume 93.5 FL (80.0-100.0) Mean Corpuscular Hemoglobin 30.8 PG (27.0-34.0) Mean Corpuscular Hemoglobin Concent 33.0 % (32.0-36.0) Red Cell Distribution Width 12.7 % (11.6-17.2) Platelet Count 284 TH/MM3 (150-450) Mean Platelet Volume 7.9 FL (7.0-11.0) Blood Urea Nitrogen 46 MG/DL (7-18) Creatinine 1.57 MG/DL (0.50-1.00) Random Glucose 258 MG/DL (74-106) Total Protein 6.7 GM/DL (6.4-8.2) Albumin 2.4 GM/DL (3.4-5.0) Calcium Level 9.1 MG/DL (8.5-10.1) Magnesium Level 2.0 MG/DL (1.5-2.5) Alkaline Phosphatase 103 U/L (45-117) Aspartate Amino Transf (AST/SGOT) 66 U/L (15-37) Alanine Aminotransferase (ALT/SGPT) 77 U/L (10-53) Total Bilirubin 0.5 MG/DL (0.2-1.0) Direct Bilirubin 0.1 MG/DL (0.0-0.2) Sodium Level 148 MEQ/L (136-145) Potassium Level 3.2 MEQ/L (3.5-5.1) Chloride Level 114 MEQ/L (98-107) Carbon Dioxide Level 24.8 MEQ/L (21.0-32.0) Anion Gap 9 MEQ/L (5-15) Estimat Glomerular Filtration Rate 34 ML/MIN (>89) Lactic Acid Level 1.0 mmol/L (0.4-2.0) Indirect Bilirubin 0.4 MG/DL (0.0-0.8) Ammonia 28 MCMOL/L (11-32) ([place]) Result Diagram: 06/27/17 0352 06/27/17 0352 Microbiology Microbiology Date/Time Source Procedure Growth Status 06/24/17 11:40 Blood Peripheral Aerobic Blood Culture - Preliminary NO GROWTH IN 2 DAYS Resulted 06/24/17 11:40 Blood Peripheral Anaerobic Blood Culture - Preliminary NO GROWTH IN 2 DAYS Resulted 06/24/17 11:35 Blood Peripheral Aerobic Blood Culture - Preliminary NO GROWTH IN 2 DAYS Resulted 06/24/17 11:35 Blood Peripheral Anaerobic Blood Culture - Preliminary NO GROWTH IN 2 DAYS Resulted 06/24/17 16:45 Nasal Aspirate Influenza Types A,B Antigen (GAGAN) - Final NEGATIVE FOR FLU A AND B ANTIGEN.... Complete 06/24/17 15:40 Sputum Endotracheal Gram Stain - Final Resulted 06/24/17 15:40 Sputum Culture - Preliminary S. Aureus Mrsa Resulted 06/24/17 15:40 Urine Catheterized Urine Legionella Antigen - Final PRESUMPTIVE NEGATIVE FOR LEGIONELLA P... Complete 06/24/17 15:40 Streptococcus pneumoniae Antigen (M - Final Pos For Pneumococcal Antigen Complete 06/24/17 13:07 Urine Catheterized Urine Urine Culture - Final NO GROWTH IN 48 HOURS. Complete Imaging Last Impressions Chest X-Ray 06/26/17 0600 Signed Impressions: Service Date/Time: Monday, June 26, 2017 03:38 - CONCLUSION: No infiltrates seen. Christopher Mcknight MD Head CT 06/24/17 1108 Signed Impressions: Service Date/Time: Saturday, June 24, 2017 12:48 - CONCLUSION: 1. 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 2. No acute hemorrhage. Rosas Salmon MD Lower Extremity Ultrasound 06/24/17 0000 Signed Impressions: Service Date/Time: Saturday, June 24, 2017 17:17 - CONCLUSION: Negative exam with no evidence of deep venous thrombosis. Damián Purdy MD Abdomen Ultrasound 06/24/17 0000 Signed Impressions: Service Date/Time: Saturday, June 24, 2017 16:59 - CONCLUSION: 1. Gallbladder wall thickening and small amount of pericholecystic fluid with no evidence of cholelithiasis. The findings are nonspecific but could indicate possible acalculus cholecystitis. 2. The liver is enlarged with no focal abnormality. 3. Nonobstructing right renal calculus. Damián Purdy MD Procedures 06/24-intubation. 06/24-right IJ central line. 06/24-left EJ Central line . ([place]) Patient/Family Conference Present at Family Conference: 1300-spoke with sonDamián, to arrange meeting later today. Left message for son, Marcio, to arrange meeting time. 14:15-sonDamián at bedside, met with him, patient's sister Anna and son , Marko in conference room with brother Marcio conferenced in by phone. We discussed patient's neurologic function, cardiac function, pneumococcal pneumonia diagnosis, sepsis, outcome, prognosis and possible transition to comfort care. Anticipatory guidance was given regarding withdrawal of ventilator support and supportive listening was given regarding patient's lifestyle and those things which were important to her. It is the family's determination based on her previous conversations with them, that she would not want to be kept on a ventilator and they are considering DNR status as well as vent withdrawal. They wish to have time to contact family members and determine who wishes to visit prior to making that decision. Contact information was provided for further questions and family determinations. . Family Conference Location: Bedside, Telephone Issues Discussed: * Palliative care role, purpose, approach * Additional medical, psychosocial, and spiritual history * Patients general health, functional status, and cognitive changes in the months leading up to the current hospitalization * Patient/family understanding of the current medical problems * Patient/family understanding of prognosis * Patients goals of care as best understood from advance directives and/or conversations and/or values * Current medical treatment options and benefits/burdens of those options * Likely scenarios comparing ongoing aggressive care with a transition to comfort measures only * Questions answered to the best of my ability * Palliative care contact information provided (Anali Lake) Assessment and Plan Disease Oriented Problem List: (1) Pneumococcal pneumonia (2) Cardiac arrest (3) Lactic acidosis (4) Sepsis (5) Right bundle branch block (6) Anemia (7) Hyperglycemia (8) Leukocytosis (9) Seizure disorder (10) History of CVA (cerebrovascular accident) (11) Elevated transaminase level Symptom Scale: (1) Encephalopathy 0-10 Scale: Unable to quantify (patient is unresponsive.) (2) Dyspnea and respiratory abnormalities 0-10 Scale: Unable to quantify (mechanically ventilated) Pertinent Non-Medical Issues Psychosocial:She was born in [facility] where she lived most of her life , moving to [place] to take care of her mother 10-15 years ago. She was Islam but not practicing recently. It is the belief of her son, Damián, that she would like sacrament of the sick. She was twice, first time to the father of her 3 children and then Mr. Vela, from home she is legally . Per the family he was from [place] and is no longer living in this country. Spiritual:She was raised as a Islam but is not currently practicing. Sacraments of the sick will be requested. Legal: Her son Damián has been designated as the DPOA/HCPOA. Ethical issues impacting care: None identified. . Important Contacts Son: Damián Guerra Son: Marcio Guerra Son: Marko Guerra Sister: Anna Joe . Prognosis Her prognosis is very poor. She appears to of had a severe anoxic brain injury with a history of a prior stroke. Her downtime was in excess of 40 minutes until ROSC was achieved. Pupils are nonreactive, minimal gag, decerebrate posturing. Ejection fraction is less than 20% with frequent salvos of ventricular tachycardia/WCT seen on telemetry. She has pneumococcal pneumonia. Per cardiology, electrostatic painter and neurology, she has a very poor prognosis. . Code Status: Full Code (by default) Plan PLAN: Legal decision maker: Son: Damián Wasserman DPOA/HCPOA Goals: To be determined CODE STATUS: Full code by default SYMPTOMS: * Encephalopathy: Patient is unresponsive to noxious stimuli. She has been off sedation since 4 AM 06/26. Decerebrate posturing is seen with stimulation. EEGs are grossly abnormal. Per neurology assessment, this is likely a significant anoxic injury and comfort measures would be appropriate if the patient does not show significant improvement in the next 24 hours. Plan to discuss goals of care with family as soon as available. * Dyspnea: Minimally breathing over the vent. She is at risk for dyspnea with any type of weaning. She has an underlying pneumococcal pneumonia and was febrile to 102.0 F last night. Likely unable to protect airway or clear secretions. Summary: This is an unfortunate 52-year-old female admitted with cardiac arrest, down for over 40 minutes without spontaneous circulation. It is likely that she has suffered a significant anoxic brain injury. She does have a history of a prior CVA as well as seizures. There is a suspicion for IV drug abuse due to positive drug screen for amphetamines and opiates as well as what appeared to be needle punctures in the left ACF suspicious for track mendez. She has impaired reflexes and decerebrate posturing is noted. Her prognosis is noted to be very poor. Neurology is recommending comfort care without significant improvement in the next 24 hours. After discussing her current condition with family, they are of the opinion that she should be a DO NOT RESUSCITATE status, however would like to delay changing her CODE STATUS until family can be notified and arrangements made for them to visit her one last time. Palliative care will continue to follow the patient during hospital course as condition evolves, to assist patient/decision-maker with understanding of their medical conditions, weighing benefits/burdens of treatment options, for clarification of goals of treatment. Additionally will assist with any symptoms of palliative concern. . (Anali Lake) Thank you for the opportunity to participate in the care of Ms. Vela. (Anali Lake) Attestation To help prompt me to consider important information that might be impacting today's encounter and assessment, information from prior notes written by myself or my colleagues may have been "brought forward" into today's note. My signature on this note, however, is an attestation that I personally performed the exam, history, and/or decision-making noted today, and, unless otherwise indicated, the interactions with patient, family, and staff as well as the review of records all occurred today. I also attest that the listed assessment and stated plan reflect my best clinical judgment today based on the combination of historical information, prior notes, and today's exam/ interactions. When time spent is documented, it refers only to time spent today by the signer, or if indicated, combined time spent today by collaborating physician/nurse practitioner. . (Anali Lake) Collaborating MD Comments Discussed with FRANCISCO, agree with assessment and plan (Jon Burch MD) Anali Lake Jun 27, 2017 10:58 Jon Burch MD Jun 28, 2017 09:52
--- NOTE | 2017-06-27 12:07 | HHI.CCPN ---
Subjective Remarks/Hospital Course Initial presentation to [facility] female middle-aged unknown name. She is brought into [facility] full cardiac arrest with ongoing CPR . Noted that information is obtained from ER physician. No family is available. Per EMS, records, they were called this patient's dressings due to a seizure of unknown duration.. Patient has history of seizures. EMS states they gave 2 mg of lorazepam to stop the active seizure at this time. Unfortunately, the patient went into cardiac arrest. ACLS was initiated by EMS. She received 3 doses of epinephrine and a dose of bicarbonate by EMS prior to arrival, with no change in her condition. EMS states they began ACLS protocol around 1010, with arrival to the emergency department around 1040. Patient received an additional 3 rounds of epinephrine and was intubated in the ED. ROSC at [address] 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 Lactic acid elevated 10.9. Troponin 0.04. White blood cell count 19,000. Blood sugar was greater than 400. Elevated transaminases. Patient is currently extending.. Pupils are fixed and dilated at 7 mm bilaterally. X-ray , notice implantable device. Due to likely multiple comorbid conditions patient is not candidate for code cool Subjective 06/25: Tmax 101.3. Currently afebrile. Withdrawals occasionally upper extremity's. Pupils remain around 7 mm and relatively fixed. No gag. Occasionally overbreathing the ventilator. Son will bring in medication list. Real name is Kamini Vela. She is 52. Her son also states that patient has been off medication 3 weeks. 06/26: Afebrile. Patient remains encephalopathic. Repeat EEG pending this a.m. Patient off sedatives since 4 AM. Noted continued elevated LFTs, most likely secondary to shock liver will continue to trend and follow-up ammonia level. Lab report patient positive for pneumococcal pneumonia, continued elevated WBC count. 06/27: Tmax during the night 102.0. The patient remains encephalopathic. Last evening the patient went into A. fib RVR with a heart rate in the 160s Cardizem bolus with initiation of infusion, with resolution during the night. Patient will be transition to by mouth Cardizem today. 3rd EEG performed, neurology following 2/2 possible brain edema noted on previous examination. Objective Vital Signs Date Time Temp Pulse Resp B/P (MAP) Pulse Ox O2 Delivery O2 Flow Rate FiO2 11/20/17 11:24 100 40 06/27/17 05:45 109 136/95 06/27/17 04:00 98.2 16 06/24/17 13:30 Ventilator Intake and Output 06/27/17 06/27/17 06/28/17 08:00 16:00 00:00 Intake Total 793 ml Output Total 775 ml Balance 18 ml Result Diagram: 06/27/17 0352 06/27/17 0352 Other Results Microbiology Date/Time Source Procedure Growth Status 06/24/17 16:45 Nasal Aspirate Influenza Types A,B Antigen (GAGAN) - Final NEGATIVE FOR FLU A AND B ANTIGEN.... Complete 06/24/17 15:40 Urine Catheterized Urine Legionella Antigen - Final PRESUMPTIVE NEGATIVE FOR LEGIONELLA P... Complete 06/24/17 15:40 Streptococcus pneumoniae Antigen (M - Final Pos For Pneumococcal Antigen Complete 06/24/17 13:07 Urine Catheterized Urine Urine Culture - Final NO GROWTH IN 48 HOURS. Complete Imaging Last Impressions Chest X-Ray 06/26/17 0600 Signed Impressions: Service Date/Time: Monday, June 26, 2017 03:38 - CONCLUSION: No infiltrates seen. Christopher Mcknight MD Head CT 06/24/17 1108 Signed Impressions: Service Date/Time: Saturday, June 24, 2017 12:48 - CONCLUSION: 1. 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 2. No acute hemorrhage. Rosas Salmon MD Lower Extremity Ultrasound 06/24/17 0000 Signed Impressions: Service Date/Time: Saturday, June 24, 2017 17:17 - CONCLUSION: Negative exam with no evidence of deep venous thrombosis. Damián Purdy MD Abdomen Ultrasound 06/24/17 0000 Signed Impressions: Service Date/Time: Saturday, June 24, 2017 16:59 - CONCLUSION: 1. Gallbladder wall thickening and small amount of pericholecystic fluid with no evidence of cholelithiasis. The findings are nonspecific but could indicate possible acalculus cholecystitis. 2. The liver is enlarged with no focal abnormality. 3. Nonobstructing right renal calculus. Damián Purdy MD Last Impressions Chest X-Ray 06/25/17 0000 Signed Impressions: Service Date/Time: Sunday, June 25, 2017 03:18 - CONCLUSION: 1. ET tube tip 1.6 cm above the ricky and needs to be withdrawn 1 cm. 2. No infiltrate seen. Christopher Mcknight MD Head CT 06/24/17 1108 Signed Impressions: Service Date/Time: Saturday, June 24, 2017 12:48 - CONCLUSION: 1. 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 2. No acute hemorrhage. Rosas Salmon MD Lower Extremity Ultrasound 06/24/17 0000 Signed Impressions: Service Date/Time: Saturday, June 24, 2017 17:17 - CONCLUSION: Negative exam with no evidence of deep venous thrombosis. Damián Purdy MD Abdomen Ultrasound 06/24/17 0000 Signed Impressions: Service Date/Time: Saturday, June 24, 2017 16:59 - CONCLUSION: 1. Gallbladder wall thickening and small amount of pericholecystic fluid with no evidence of cholelithiasis. The findings are nonspecific but could indicate possible acalculus cholecystitis. 2. The liver is enlarged with no focal abnormality. 3. Nonobstructing right renal calculus. Damián Purdy MD Objective Remarks GENERAL: This is a middle-aged well-nourished well-developed critically ill female, currently orotracheally intubated, nonresponsive all sedative SKIN: Warm and dry. Tattoo on right lateral aspect of right leg. HEAD: Atraumatic. Normocephalic. EYES: Pupils equal and round about 7 mm bilaterally and nonreactive. No scleral icterus. No injection or drainage. ENT: No nasal bleeding or discharge. Mucous membranes pink and moist. NECK: Trachea midline. No JVD. CARDIOVASCULAR: Regular rate and rhythm. S1, S2. No S4. RESPIRATORY: No accessory muscle use. Clear to auscultation. Breath sounds equal bilaterally. GASTROINTESTINAL: Abdomen soft, non-tender, nondistended. Hypoactive bowel sounds noted MUSCULOSKELETAL: Extremities 1+peripheral edema. No obvious deformities. NEUROLOGICAL: GCS 3T on no sedation .Pupils fixed. No gag. No corneal lid reflex. Does not withdrawal to noxious stimulation. No clonus. Decerebrate posturing noted. Procedures 06/26 repeat EEG 06/27 repeat EEG Date of Insertion: Jun 24, 2017 Line: Central Venous Catheter Side: Right Location: Internal, Jugular A/P Assessment and Plan Neuro/Psych: Likely anoxic brain injury Seizure disorder NOS Hx right parietal CVA History of polysubstance abuse - amphetamines and opiates urine drug screen All forms of sedatives, fentanyl discontinued 4 AM 06/26. 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 Loaded with levetiracetam 1 g followed by 500 mg IV twice a day Check Dilantin/valproic acid levels -subtherapeutic. Unknown current drug regimen. Neurology following- Dr. Clark 06/25 EEG -burst suppression pattern consistent with diffuse cerebral disturbance. Right arm posturing not consistent with brain activity. 06/26 repeat EEG -low amplitude possibly indicative of progressive brain edema 06/27 repeat EEG pending Urine toxicology screen positive for amphetamines and opiates 06/27 ammonia level-28 CV: OHCA Severe sepsis History of AICD placement/ by Dr. Stinson Lactic acidosis QTC prolongation Right bundle branch block single chamber AICD History of severe nonischemic cardiopathy ejection fraction 20% Severe biventricular dysfunction History of recurrent V. fib arrest Elevated troponin New-onset A. fib RVR Etiology of cardiac arrest unclear. Given 2 mg lorazepam followed by code Due to 50 minute length of code not candidate for code cool On normal saline at 84 cc an hour. Goal to maintain mean artery pressure greater than 65 Serial lactates until clear. Currently 2.2 Serial troponins. Initially 0.04 -> 0.89->0.51 downtrending 06/25 2-D echo-moderate MR, ejection fraction less than 20%, trace TR, trace AR 06/25 EKG reveals normal sinus rhythm 88. Right bundle branch block. QTC 509' Son to obtain home medications. Noted she's been off all medications 3 weeks AICD has been interrogated. No shocks previously noted Previously on mexiletine 200 every 8, carvedilol and entresto 06/26-onset A. fib RVR, placed on Cardizem bolus with infusion. Transition to by mouth Cardizem 30mg QID 06/27-repeat EKG Resp: Acute hypoxemic [facility] Ventilator bundle Albuterol/ipratropium aerosols every 6 hours albuterol aerosols every 2 hours. Breathing trials if clinically indicated Very low likelihood PE. 06/26 chest x-ray-no acute process GI: Transaminitis OGT to LIWS Famotidine for GI prophylaxis Docusate sodium/senna 1 tablet twice a day for bowel regimen hepatitis panel pending Abdominal ultrasound revealed distended gallbladder without signs of cholecystitis. Enlarged liver. Right renal cyst Start Glucerna 1.5 goal 50 cc an hour for tube feeding Monitor LFTs ,06/26 continued elevation AST 111, ALT 102, alkaline phosphatase 118 : Fernandez catheter is indicated for accurate I's and O's in a critically ill patient Endo: Hyperglycemia Currently on sliding scale insulin with Accu-Cheks every 4 hours to maintain euglycemia/Novulin R medium protocol hemoglobin A1c 7.0 TSH 0.609 Obtain random cortisol level Renal: Acute kidney injury Right renal cyst Monitor urine output Accurate I's and O's Monitor BMP -creatinine 1.7 Urine eosinophils negative. Abdominal ultrasound revealed no hydronephrosis. With low ejection fraction will gently diurese today. Heme: Persistent Leukocytosis Monitor CBC and coags daily. Follow trends Does not meet transfusion thresholds at this time WBC 19->25 today ID: Urine pneumococcal antigen positive Received vancomycin and piperacillin/tazobactam in ED. We'll continue piperacillin/tazobactam and vancomycin day #3 Blood cultures 2 no growth 06/24. Urine culture, sputum results. Urine pneumococcal antigen positive MSK: PT evaluate and treat Daily functional maintenance FEN: Hypophosphatemia Replace electrolytes as clinically indicated Access - Utilize right IJ CVL day number 2 placed 06/24 Prophylaxis - GI - famotidine - DVT - SCD/heparin subcutaneous Dispo: Telephoned Damián Wasserman POLiliana [phone] , provided an update in the patient's medical status to include pending EEG and current neurological assessment. Discussed with TRAIN RESERVATION CLERK at bedside. We'll follow-up with palliative care to define goals of care. This patient remains critically ill with one or more organ systems which are or may become a threat to life. I have spent in excess of 31 minutes discontinuously in the care and management of this patient. This time is exclusive of procedures, and includes, but is not limited to, evaluation of the patient, review of the medical record, discussions with family, consultants, nursing staff, or respiratory therapy, and documentation in the medical record. Physician Agnes Cohen MD Jun 27, 2017 12:07
[2017-06-27] MEDS: DILTIAZEM HCL 30 MG TAB PO SCH ×3 (13:10→20:23)
--- NOTE | 2017-06-27 15:51 | MG ---
cc: LAVELL NICOLAS M.D. Lab No: Date: 06/27/2017 Age: Sex: F Race: DATE OF 1965, 52 years old EEG NUMBER [id number] Clark ROOM 500 Intubated. Photic done. No sedation. This is a repeat EEG. Given tactile stimulation to all four extremities, negative on the left, negative in both lower extremities. She moved her head and posture with both arms to bilateral stimuli. Does not follow commands. Last EEG 06/26/2017 showed low amplitude with burst suppression, not as sharp as the previous day. CT old infarct right parietal. She came in as a cardiac arrest with CPR in progress. On Keppra and other medicines. Antibiotics. DESCRIPTION OF RECORD Very low amplitude EEG. Artifact in the frontal patel with a lot of muscle artifact. Photic stimulation is performed. There is no driving response. The patient was asked to open eyes, squeeze, wiggle toes did not do that. IMPRESSION Abnormal EEG due to diffuse background slowing consistent with severe encephalopathy versus anoxic encephalopathy. There is no evidence of any epileptiform features. Clinical correlation. MD DUC Gutierrez/MARCIAL /3:35 PM /3:45 PM
--- NOTE | 2017-06-27 18:14 | EKG ---
Date Performed: 06/26/2017 Time Performed: 14:57:08 PTAGE: 52 years EKG: Atrial fibrillation with rapid ventricular response. Possible left ventricular hypertrophy Extensive ST-T changes are probably due to ventricular Hypertrophy. Consider anterolateral ischemia A bnormal ECG PREVIOUS TRACING : 06/26/2017 08.41 DOCTOR: Silas Felix Interpretating Date/Time 06/27/2017 18:13:20
[2017-06-27] MEDS: INSULIN DETEMIR 100 UNITS/ML VIAL SQ SCH (20:23)
[2017-06-28] VITALS (14 sets, daily range): BP systolic 146–160; BP diastolic 82–96; PULSE 79–114; RESP 16–22; TEMP 98.1–100.4; O2SAT 100
[2017-06-28] MEDS: RESP: ALBUTEROL 2.5 MG/IPRATROPIUM 0.5 MG NEB (SCH) INH ×2 (03:25→07:49)
[2017-06-28] MEDS: HEPARIN SODIUM - SQ 10,000 UNITS/ML VIAL SQ SCH ×2 (03:54→14:02)
[2017-06-28] MEDS: CHLORHEXIDINE GLUCONATE 2 % 1 PACK (2 CLOTHS) TOP SCH (04:00)
[2017-06-28] MEDS: INSULIN NovoLIN REGULAR SUPPLEMENTAL SCALE SQ SCH ×6 (04:00→19:44)
[2017-06-28] MEDS: PIPERACIL-TAZO 4.5 GM PREMIX 100 ML IV SCH ×3 (05:37→19:45)
[2017-06-28 07:00] LABS: AUTOMATED NEUTROPHIL # 15.9 TH/MM3 (1.8-7.7); BASOPHIL % 0.2 % (0.0-2.0); HEMATOCRIT 34.6 % (35.0-46.0); HEMO FLAGS DIFF FINAL; LYMPH % 7.3 % (9.0-44.0); LYMPHOCYTE # 1.3 TH/MM3 (1.0-4.8); MEAN CELL VOLUME 94.6 FL (80.0-100.0); MEAN CORPUSCULAR HEMOGLOBIN 30.9 PG (27.0-34.0); MEAN CORPUSCULAR HGB CONC 32.6 % (32.0-36.0); MONO % 3.9 % (0.0-8.0); NEUT % 88.6 % (16.0-70.0); PLATELET COUNT 326 TH/MM3 (150-450); RED BLOOD COUNT 3.66 MIL/MM3 (4.00-5.30); RED CELL DISTRIBUTION WIDTH 12.8 % (11.6-17.2)
[2017-06-28 07:26] LABS: BICARBONATE 21.8 MEQ/L (21.0-32.0)
--- NOTE | 2017-06-28 07:48 | HHI.PR ---
Subjective Remarks of sedative for almost two days Objective Vital Signs Date Time Temp Pulse Resp B/P (MAP) Pulse Ox O2 Delivery O2 Flow Rate FiO2 06/28/17 04:00 100 40 06/28/17 04:00 40 06/28/17 04:00 98.1 85 146/85 (105) 100 06/28/17 00:00 98.4 97 16 160/85 (110) 100 06/28/17 00:00 40 06/27/17 23:24 100 40 06/27/17 20:00 98.9 90 16 145/81 (102) 100 06/27/17 20:00 40 06/27/17 19:29 100 40 06/27/17 18:00 93 06/27/17 16:00 99.0 84 119/73 (88) 100 06/27/17 16:00 84 06/27/17 16:00 40 06/27/17 15:06 100 40 06/27/17 15:00 70 109/65 (80) 100 06/27/17 14:00 68 06/27/17 14:00 68 106/64 (78) 100 06/27/17 13:00 67 102/61 (75) 100 06/27/17 12:00 71 06/27/17 12:00 98.6 71 104/64 (77) 100 06/27/17 12:00 40 06/27/17 11:24 100 40 06/27/17 11:00 88 126/70 (88) 100 06/27/17 10:00 82 128/69 (88) 100 06/27/17 10:00 82 06/27/17 09:00 85 127/68 (87) 100 06/27/17 08:00 40 06/27/17 08:00 100.4 100 136/72 (93) 100 06/27/17 08:00 100 06/27/17 07:52 100 40 I/O 06/27/17 06/27/17 06/27/17 06/28/17 06/28/17 06/28/17 07:00 15:00 23:00 07:00 15:00 23:00 Intake Total 793 ml 368 ml 920 ml 699 ml Output Total 775 ml 750 ml 800 ml Balance 18 ml 368 ml 170 ml -101 ml Intake Oral 0 ml 0 ml 0 ml IV Total 200 ml 368 ml 200 ml 100 ml Tube Feeding 593 ml 720 ml 599 ml Output Urine Total 775 ml 750 ml 800 ml # Bowel Movements 0 1 0 Result Diagram: 06/28/1752906/28/17529 Objective Remarks off sedatives since tuesday dolls nl comatose pupil = to nasal stim some slight head turn not follow commands flaccid t/o Assessment and Plan Assessment and Plan imp eeg shows lower amplitudes burst suppression could be cw some inc edema? 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
[2017-06-28] MEDS: levETIRAcetam 1000 MG INJ 100 ML IV SCH ×2 (08:48→19:44)
[2017-06-28] MEDS: FAMOTIDINE 20 MG/2 ML VIAL IV PUSH SCH (08:48)
[2017-06-28] MEDS: SODIUM CHLORIDE 0.9% FLUSH 10 ML FLUSH IV FLUSH SCH ×2 (08:48→19:44)
[2017-06-28] MEDS: DOCUSATE SODIUM 50 MG/SENNA 8.6 MG TAB PO SCH ×2 (08:49→19:44)
[2017-06-28] MEDS: DILTIAZEM HCL 30 MG TAB PO SCH ×4 (08:49→19:44)
[2017-06-28] MEDS: CARVEDILOL 6.25 MG TAB PO SCH ×2 (08:49→19:44)
[2017-06-28] MEDS: INSULIN DETEMIR 100 UNITS/ML VIAL SQ SCH ×2 (08:49→19:45)
[2017-06-28] MEDS: LISINOPRIL 5 MG TAB NG SCH (08:49)
[2017-06-28] MEDS: LACTULOSE SYRUP 20 GM/30 ML CUP PO SCH (08:49)
[2017-06-28] MEDS: CHLORHEXIDINE 0.12% (ORAL KIT) 15 ML CUP MT SCH ×2 (08:50→19:46)
[2017-06-28] MEDS: BENEPROTEIN POWDER 1 PACK G-TUBE SCH ×3 (08:50→17:56)
[2017-06-28] MEDS: ARTIFICIAL TEARS OPTH SOLN 15 ML BTL EACH EYE SCH ×3 (08:51→17:55)
[2017-06-28] MEDS: VANCOMYCIN 1,500 MG/NS 500 ML IV SCH ×2 (10:44)
--- NOTE | 2017-06-28 13:16 | HHI.HCPN ---
Reason for visit a. To assist with evaluation and management of symptoms including: Encephalopathy, dyspnea b. To assist medical decision maker(s) with: better understanding of current medical conditions; weighing benefits/burdens of medical treatment options; making medical treatment decisions. Subjective/Interval History 52-year-old female seen in room 500 of [facility], remains intubated, not sedated since 06/26 at 4 AM, unresponsive. No family is at bedside at this evaluation. Interval history: * Vital signs: BP 147/85, pulse 98, RR 20, O2 sat 100% on 40% FiO2, T-MAX 100.4. * Laboratory: WBC 18.0, H GB 11.3, HCT 34.6, PLT 326, sodium 152, potassium 4.0 , BUN 50, creatinine 1.49, glucose 332, hepatitis C antibody reactive. * Microbiology: Urine is positive for pneumococcal antigen. Sputum is possible for staph aureus MRSA and Haemophilus influenzae. Consultations: * Neurology: Repeat EEG is abnormal due to diffuse background slowing consistent with severe encephalopathy versus anoxic encephalopathy. No evidence of any epileptiform features. Per Dr. Clark, this is likely a severe anoxic cerebral injury. Considering brain blood flow study and if abnormal cortical flow referral for comfort measures. * Cardiology: Recommend continuing supportive care to include beta talia and ACEI. Agree with poor prognosis noted by neurology. . Family/friend interactions Spoke with son, Damián, via telephone and gave update regarding no change in patient's clinical condition. He reiterates that he is still in the process of contacting all the family members that may want to visit prior to withdrawal of the ventilator. I did discuss the possibility of a hospice consultation with him to include transferring to a care center intubated while family members are in route to allow extubation at the care center. He was appreciative of the suggestion and will discuss it with his brothers and make further plans as family plans solidify. 1500: Spoke with son, Marko, at bedside and updated as to clinical status being unchanged and gave anticipatory guidance regarding withdrawal of ventilator support. Also addressed with him the option of extubation at a care center for a more supportive environment for the family, particularly the patient's mother , who is still alive and had previously been cared for by the patient. Family does plan to bring her in to say goodbye to the patient at some point and the hospice care center may provide more support and can be assembled in the hospital. . Advance Directives Living Will: Never completed Health Care Surrogate: Never completed Durable Power of Site Surveyor: Copy in medical record (son, Damián, is DPOA, HCPOA ) Objective Vital Signs Date Time Temp Pulse Resp B/P (MAP) Pulse Ox O2 Delivery O2 Flow Rate FiO2 06/28/17 12:26 100 40 06/28/17 12:00 99.6 98 20 147/85 (105) 100 06/28/17 10:00 88 06/28/17 08:00 93 06/28/17 07:50 100 40 06/28/17 04:00 100 40 06/28/17 04:00 40 06/28/17 04:00 98.1 85 146/85 (105) 100 06/28/17 00:00 98.4 97 16 160/85 (110) 100 06/28/17 00:00 40 06/27/17 23:24 100 40 06/27/17 20:00 98.9 90 16 145/81 (102) 100 06/27/17 20:00 40 06/27/17 19:29 100 40 06/27/17 18:00 93 06/27/17 16:00 99.0 84 119/73 (88) 100 06/27/17 16:00 84 06/27/17 16:00 40 06/27/17 15:06 100 40 06/27/17 15:00 70 109/65 (80) 100 06/27/17 14:00 68 06/27/17 14:00 68 106/64 (78) 100 06/27/17 13:00 67 102/61 (75) 100 Intake & Output 06/28/17 06/28/17 07:00 19:00 Intake Total 899 ml Output Total 800 ml Balance 99 ml Intake Oral 0 ml IV Total 300 ml Tube Feeding 599 ml Output Urine Total 800 ml # Bowel Movements 0 Physical Exam CONSTITUTIONAL/GENERAL: This is an adequately nourished patient, intubated, unresponsive, not sedated. TUBES/LINES/DRAINS: L IJ central line, ETT and OGT, Fernandez SKIN: Puncture sites seen on left ACF, otherwise warm, dry, intact. HEAD: Atraumatic. Normocephalic. EYES: Pupils 5 mm, round and reactive. Fundi not examined. ENT: Nose without bleeding or purulent drainage. Oral mucosa dry. NECK: Trachea midline. Supple. No palpable thyroid enlargement or nodularity. CARDIOVASCULAR: Regular rate and irregular rhythm without murmurs, gallops, or rubs. No JVD. Peripheral pulses symmetric. RESPIRATORY/CHEST: Some spontaneous respirations over ventilator rate, breath sounds clear, diminished. GASTROINTESTINAL: Abdomen soft, nondistended. Bowel sounds hypoactive. GENITOURINARY: Without palpable bladder distension. Fernandez catheter in place. MUSCULOSKELETAL: Extremities without cyanosis. 1-2+ generalized edema. No mottling or clubbing. NEUROLOGICAL: Unresponsive with decerebrate posturing. PSYCHIATRIC: Unresponsive, unsedated. . Diagnostic Tests Laboratory Laboratory Tests Test 06/25/17 20:19 06/26/17 03:15 06/26/17 11:30 06/26/17 11:38 Lactic Acid Level 1.4 mmol/L (0.4-2.0) 1.1 mmol/L (0.4-2.0) 1.9 mmol/L (0.4-2.0) White Blood Count 25.9 TH/MM3 (4.0-11.0) Red Blood Count 3.85 MIL/MM3 (4.00-5.30) Hemoglobin 12.0 GM/DL (11.6-15.3) Hematocrit 35.5 % (35.0-46.0) Mean Corpuscular Volume 92.2 FL (80.0-100.0) Mean Corpuscular Hemoglobin 31.1 PG (27.0-34.0) Mean Corpuscular Hemoglobin Concent 33.7 % (32.0-36.0) Red Cell Distribution Width 12.6 % (11.6-17.2) Platelet Count 284 TH/MM3 (150-450) Mean Platelet Volume 7.1 FL (7.0-11.0) Neutrophils (%) (Auto) 88.4 % (16.0-70.0) Lymphocytes (%) (Auto) 6.5 % (9.0-44.0) Monocytes (%) (Auto) 4.6 % (0.0-8.0) Eosinophils (%) (Auto) 0.0 % (0.0-4.0) Basophils (%) (Auto) 0.5 % (0.0-2.0) Neutrophils # (Auto) 22.9 TH/MM3 (1.8-7.7) Lymphocytes # (Auto) 1.7 TH/MM3 (1.0-4.8) Monocytes # (Auto) 1.2 TH/MM3 (0-0.9) Eosinophils # (Auto) 0.0 TH/MM3 (0-0.4) Basophils # (Auto) 0.1 TH/MM3 (0-0.2) CBC Comment DIFF FINAL Differential Comment Blood Urea Nitrogen 33 MG/DL (7-18) Creatinine 1.75 MG/DL (0.50-1.00) Random Glucose 231 MG/DL (74-106) Total Protein 6.8 GM/DL (6.4-8.2) Albumin 2.6 GM/DL (3.4-5.0) Calcium Level 9.1 MG/DL (8.5-10.1) Phosphorus Level 3.1 MG/DL (2.5-4.9) Magnesium Level 2.0 MG/DL (1.5-2.5) Alkaline Phosphatase 118 U/L (45-117) Aspartate Amino Transf (AST/SGOT) 111 U/L (15-37) Alanine Aminotransferase (ALT/SGPT) 102 U/L (10-53) Total Bilirubin 0.4 MG/DL (0.2-1.0) Sodium Level 143 MEQ/L (136-145) Potassium Level 3.7 MEQ/L (3.5-5.1) Chloride Level 109 MEQ/L (98-107) Carbon Dioxide Level 24.8 MEQ/L (21.0-32.0) Anion Gap 9 MEQ/L (5-15) Estimat Glomerular Filtration Rate 30 ML/MIN (>89) Troponin I 0.51 NG/ML (0.02-0.05) Vancomycin Level Trough 12.2 MCG/ML (5.0-10.0) Random Vancomycin Level 12.1 COMMENT Random Cortisol 52.4 MCG/DL Test 06/26/17 18:50 06/26/17 23:41 06/27/17 03:52 06/27/17 18:35 Lactic Acid Level 1.3 mmol/L (0.4-2.0) 1.0 mmol/L (0.4-2.0) 1.0 mmol/L (0.4-2.0) White Blood Count 23.2 TH/MM3 (4.0-11.0) Red Blood Count 3.73 MIL/MM3 (4.00-5.30) Hemoglobin 11.5 GM/DL (11.6-15.3) Hematocrit 34.9 % (35.0-46.0) Mean Corpuscular Volume 93.5 FL (80.0-100.0) Mean Corpuscular Hemoglobin 30.8 PG (27.0-34.0) Mean Corpuscular Hemoglobin Concent 33.0 % (32.0-36.0) Red Cell Distribution Width 12.7 % (11.6-17.2) Platelet Count 284 TH/MM3 (150-450) Mean Platelet Volume 7.9 FL (7.0-11.0) Blood Urea Nitrogen 46 MG/DL (7-18) Creatinine 1.57 MG/DL (0.50-1.00) Random Glucose 258 MG/DL (74-106) Total Protein 6.7 GM/DL (6.4-8.2) Albumin 2.4 GM/DL (3.4-5.0) Calcium Level 9.1 MG/DL (8.5-10.1) Magnesium Level 2.0 MG/DL (1.5-2.5) Alkaline Phosphatase 103 U/L (45-117) Aspartate Amino Transf (AST/SGOT) 66 U/L (15-37) Alanine Aminotransferase (ALT/SGPT) 77 U/L (10-53) Total Bilirubin 0.5 MG/DL (0.2-1.0) Direct Bilirubin 0.1 MG/DL (0.0-0.2) Sodium Level 148 MEQ/L (136-145) Potassium Level 3.2 MEQ/L (3.5-5.1) 3.8 MEQ/L (3.5-5.1) Chloride Level 114 MEQ/L (98-107) Carbon Dioxide Level 24.8 MEQ/L (21.0-32.0) Anion Gap 9 MEQ/L (5-15) Estimat Glomerular Filtration Rate 34 ML/MIN (>89) Indirect Bilirubin 0.4 MG/DL (0.0-0.8) Ammonia 28 MCMOL/L (11-32) Test 06/28/17 05:30 White Blood Count 18.0 TH/MM3 (4.0-11.0) Red Blood Count 3.66 MIL/MM3 (4.00-5.30) Hemoglobin 11.3 GM/DL (11.6-15.3) Hematocrit 34.6 % (35.0-46.0) Mean Corpuscular Volume 94.6 FL (80.0-100.0) Mean Corpuscular Hemoglobin 30.9 PG (27.0-34.0) Mean Corpuscular Hemoglobin Concent 32.6 % (32.0-36.0) Red Cell Distribution Width 12.8 % (11.6-17.2) Platelet Count 326 TH/MM3 (150-450) Mean Platelet Volume 8.6 FL (7.0-11.0) Neutrophils (%) (Auto) 88.6 % (16.0-70.0) Lymphocytes (%) (Auto) 7.3 % (9.0-44.0) Monocytes (%) (Auto) 3.9 % (0.0-8.0) Eosinophils (%) (Auto) 0.0 % (0.0-4.0) Basophils (%) (Auto) 0.2 % (0.0-2.0) Neutrophils # (Auto) 15.9 TH/MM3 (1.8-7.7) Lymphocytes # (Auto) 1.3 TH/MM3 (1.0-4.8) Monocytes # (Auto) 0.7 TH/MM3 (0-0.9) Eosinophils # (Auto) 0.0 TH/MM3 (0-0.4) Basophils # (Auto) 0.0 TH/MM3 (0-0.2) CBC Comment DIFF FINAL Differential Comment Blood Urea Nitrogen 50 MG/DL (7-18) Creatinine 1.49 MG/DL (0.50-1.00) Random Glucose 332 MG/DL (74-106) Calcium Level 9.5 MG/DL (8.5-10.1) Sodium Level 152 MEQ/L (136-145) Potassium Level 4.0 MEQ/L (3.5-5.1) Chloride Level 119 MEQ/L (98-107) Carbon Dioxide Level 21.8 MEQ/L (21.0-32.0) Anion Gap 11 MEQ/L (5-15) Estimat Glomerular Filtration Rate 36 ML/MIN (>89) Random Vancomycin Level 8.7 COMMENT . Result Diagram: 06/28/17 0530 06/28/17 0530 Microbiology Microbiology Date/Time Source Procedure Growth Status 06/24/17 11:40 Blood Peripheral Aerobic Blood Culture - Preliminary NO GROWTH IN 4 DAYS Resulted 06/24/17 11:40 Blood Peripheral Anaerobic Blood Culture - Preliminary NO GROWTH IN 4 DAYS Resulted 06/24/17 16:45 Nasal Aspirate Influenza Types A,B Antigen (GAGAN) - Final NEGATIVE FOR FLU A AND B ANTIGEN.... Complete 06/24/17 15:40 Urine Catheterized Urine Legionella Antigen - Final PRESUMPTIVE NEGATIVE FOR LEGIONELLA P... Complete 06/24/17 15:40 Streptococcus pneumoniae Antigen (M - Final Pos For Pneumococcal Antigen Complete . Imaging Last Impressions Chest X-Ray 06/26/17 0600 Signed Impressions: Service Date/Time: Monday, June 26, 2017 03:38 - CONCLUSION: No infiltrates seen. Christopher Mcknight MD Head CT 06/24/17 1108 Signed Impressions: Service Date/Time: Saturday, June 24, 2017 12:48 - CONCLUSION: 1. 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 2. No acute hemorrhage. Rosas Salmon MD Lower Extremity Ultrasound 06/24/17 0000 Signed Impressions: Service Date/Time: Saturday, June 24, 2017 17:17 - CONCLUSION: Negative exam with no evidence of deep venous thrombosis. Damián Purdy MD Abdomen Ultrasound 06/24/17 0000 Signed Impressions: Service Date/Time: Saturday, June 24, 2017 16:59 - CONCLUSION: 1. Gallbladder wall thickening and small amount of pericholecystic fluid with no evidence of cholelithiasis. The findings are nonspecific but could indicate possible acalculus cholecystitis. 2. The liver is enlarged with no focal abnormality. 3. Nonobstructing right renal calculus. Damián Purdy MD . Procedures 06/24-intubation. 06/24-right IJ central line. 06/24-left EJ Central line . Assessment and Plan Disease Oriented Problem List: (1) Pneumococcal pneumonia (2) Cardiac arrest (3) Lactic acidosis (4) Sepsis (5) Right bundle branch block (6) Anemia (7) Hyperglycemia (8) Leukocytosis (9) Seizure disorder (10) History of CVA (cerebrovascular accident) (11) Elevated transaminase level Symptom Scale: (1) Encephalopathy 0-10 Scale: Unable to quantify (patient is unresponsive.) (2) Dyspnea and respiratory abnormalities 0-10 Scale: Unable to quantify (mechanically ventilated) Pertinent Non-Medical Issues Psychosocial:She was born in [facility] where she lived most of her life , moving to [place] to take care of her mother 10-15 years ago. 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 It is the belief of her son, Damián, that she would like sacrament of the sick. She was twice, first time to the father of her 3 children and then Mr. Vela, from home she is legally . Per the family he was from [place] and is no longer living in this country. 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 Sacraments of the sick will be requested. Legal: Her son Damián has been designated as the DPOA/HCPOA. Ethical issues impacting care: None identified. . Important Contacts Son: Damián Guerra Son: Marcio Guerra Son: Marko Guerra Sister: Anna Joe . Prognosis Her prognosis is very poor. She appears to of had a severe anoxic brain injury with a history of a prior stroke. Her downtime was in excess of 40 minutes until ROSC was achieved. Pupils are nonreactive, minimal gag, decerebrate posturing. Ejection fraction is less than 20% with frequent salvos of ventricular tachycardia/WCT seen on telemetry. She has pneumococcal pneumonia. Per cardiology, photography manager and neurology, she has a very poor prognosis. . Code Status: Full Code (by default) Plan PLAN: Legal decision maker: Son: Damián Wasserman DPOA/HCPOA Goals: To be determined CODE STATUS: Full code SYMPTOMS: * Encephalopathy: Patient is unresponsive to noxious stimuli. She has been off sedation since 4 AM 06/26. Decerebrate posturing is seen with stimulation. EEGs are grossly abnormal. Per neurology assessment, this is likely a significant anoxic injury and comfort measures would be appropriate if the brain blood flow study is abnormal. Per family discussion yesterday, they wish to discuss with remaining family members to determine who may wish to visit prior to converting to comfort care/vent withdrawal. * Dyspnea: Minimally breathing over the vent. She is at risk for dyspnea with any type of weaning. She has an underlying pneumonia with sputum cultures positive for staph aureus MRSA and Haemophilus influenzae and was febrile to 100.4 F last night. Likely unable to protect airway or clear secretions. SUMMARY: Family remains pursuant of comfort care with the eventual goal of extubation/ withdrawal of ventilator support once family members have had the opportunity to save their goodbyes. Patient does have a [employer] ICD which will require deactivation once the DNR is activated. Palliative care will continue to follow the patient during hospital course as condition evolves, to assist patient/decision-maker with understanding of their medical conditions, weighing benefits/burdens of treatment options, for clarification of goals of treatment. Additionally will assist with any symptoms of palliative concern. . Attestation To help prompt me to consider important information that might be impacting today's encounter and assessment, information from prior notes written by myself or my colleagues may have been "brought forward" into today's note. My signature on this note, however, is an attestation that I personally performed the exam, history, and/or decision-making noted today, and, unless otherwise indicated, the interactions with patient, family, and staff as well as the review of records all occurred today. I also attest that the listed assessment and stated plan reflect my best clinical judgment today based on the combination of historical information, prior notes, and today's exam/ interactions. When time spent is documented, it refers only to time spent today by the signer, or if indicated, combined time spent today by collaborating physician/nurse practitioner. . Anali Lake Jun 28, 2017 1:16 pm
--- NOTE | 2017-06-28 14:49 | HHI.CCPN ---
Subjective Remarks/Hospital Course Initial presentation to [facility] female middle-aged unknown name. She is brought into [facility] full cardiac arrest with ongoing CPR . Noted that information is obtained from ER physician. No family is available. Per EMS, records, they were called this patient's dressings due to a seizure of unknown duration.. Patient has history of seizures. EMS states they gave 2 mg of lorazepam to stop the active seizure at this time. Unfortunately, the patient went into cardiac arrest. ACLS was initiated by EMS. She received 3 doses of epinephrine and a dose of bicarbonate by EMS prior to arrival, with no change in her condition. EMS states they began ACLS protocol around 1010, with arrival to the emergency department around 1040. Patient received an additional 3 rounds of epinephrine and was intubated in the ED. ROSC at [address] 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 Lactic acid elevated 10.9. Troponin 0.04. White blood cell count 19,000. Blood sugar was greater than 400. Elevated transaminases. Patient is currently extending.. Pupils are fixed and dilated at 7 mm bilaterally. X-ray , notice implantable device. Due to likely multiple comorbid conditions patient is not candidate for code cool Subjective 06/25: Tmax 101.3. Currently afebrile. Withdrawals occasionally upper extremity's. Pupils remain around 7 mm and relatively fixed. No gag. Occasionally overbreathing the ventilator. Son will bring in medication list. Real name is Kamini Vela. She is 52. Her son also states that patient has been off medication 3 weeks. 06/26: Afebrile. Patient remains encephalopathic. Repeat EEG pending this a.m. Patient off sedatives since 4 AM. Noted continued elevated LFTs, most likely secondary to shock liver will continue to trend and follow-up ammonia level. Lab report patient positive for pneumococcal pneumonia, continued elevated WBC count. 06/27: Tmax during the night 102.0. The patient remains encephalopathic. Last evening the patient went into A. fib RVR with a heart rate in the 160s Cardizem bolus with initiation of infusion, with resolution during the night. Patient will be transition to by mouth Cardizem today. 3rd EEG performed, neurology following 2/2 possible brain edema noted on previous examination. 06/28: Tmax 101. 2 Remains encephalopathic .repeat EEG yesterday almost flat line, all sedation greater than 48-hours. Adjusted per neurology of severe anoxic brain injury. Family in discussions with palliative care team plan for ventilator withdrawal/comfort care measures after . Family is considering transferred to hospice medical facility and withdrawal and hospice facility. Objective Vital Signs Date Time Temp Pulse Resp B/P (MAP) Pulse Ox O2 Delivery O2 Flow Rate FiO2 06/28/17 12:26 100 40 06/28/17 12:00 98 06/28/17 12:00 99.6 20 147/85 (105) 06/24/17 13:30 Ventilator Intake and Output 06/28/17 06/28/17 06/29/17 08:00 16:00 00:00 Intake Total 699 ml 600 ml Output Total 800 ml Balance -101 ml 600 ml Result Diagram: 06/28/17 0530 06/28/17 0530 Imaging Last Impressions Chest X-Ray 06/26/17 0600 Signed Impressions: Service Date/Time: Monday, June 26, 2017 03:38 - CONCLUSION: No infiltrates seen. Christopher Mcknight MD Head CT 06/24/17 1108 Signed Impressions: Service Date/Time: Saturday, June 24, 2017 12:48 - CONCLUSION: 1. 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 2. No acute hemorrhage. Rosas Salmon MD Lower Extremity Ultrasound 06/24/17 0000 Signed Impressions: Service Date/Time: Saturday, June 24, 2017 17:17 - CONCLUSION: Negative exam with no evidence of deep venous thrombosis. Damián Purdy MD Abdomen Ultrasound 06/24/17 0000 Signed Impressions: Service Date/Time: Saturday, June 24, 2017 16:59 - CONCLUSION: 1. Gallbladder wall thickening and small amount of pericholecystic fluid with no evidence of cholelithiasis. The findings are nonspecific but could indicate possible acalculus cholecystitis. 2. The liver is enlarged with no focal abnormality. 3. Nonobstructing right renal calculus. Damián Purdy MD Last Impressions Chest X-Ray 06/25/17 0000 Signed Impressions: Service Date/Time: Sunday, June 25, 2017 03:18 - CONCLUSION: 1. ET tube tip 1.6 cm above the ricky and needs to be withdrawn 1 cm. 2. No infiltrate seen. Christopher Mcknight MD Head CT 06/24/17 1108 Signed Impressions: Service Date/Time: Saturday, June 24, 2017 12:48 - CONCLUSION: 1. 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 2. No acute hemorrhage. Rosas Salmon MD Lower Extremity Ultrasound 06/24/17 0000 Signed Impressions: Service Date/Time: Saturday, June 24, 2017 17:17 - CONCLUSION: Negative exam with no evidence of deep venous thrombosis. Damián Purdy MD Abdomen Ultrasound 06/24/17 0000 Signed Impressions: Service Date/Time: Saturday, June 24, 2017 16:59 - CONCLUSION: 1. Gallbladder wall thickening and small amount of pericholecystic fluid with no evidence of cholelithiasis. The findings are nonspecific but could indicate possible acalculus cholecystitis. 2. The liver is enlarged with no focal abnormality. 3. Nonobstructing right renal calculus. Damián Purdy MD Objective Remarks GENERAL: This is a middle-aged well-nourished well-developed critically ill female, currently orotracheally intubated, nonresponsive all sedative SKIN: Warm and dry. Tattoo on right lateral aspect of right leg. HEAD: Atraumatic. Normocephalic. EYES: Pupils equal and round about 7 mm bilaterally and nonreactive. No scleral icterus. No injection or drainage. ENT: No nasal bleeding or discharge. Mucous membranes pink and moist. NECK: Trachea midline. No JVD. CARDIOVASCULAR: Regular rate and rhythm. S1, S2. No S4. RESPIRATORY: No accessory muscle use. Clear to auscultation. Breath sounds equal bilaterally. GASTROINTESTINAL: Abdomen soft, non-tender, nondistended. Hypoactive bowel sounds noted MUSCULOSKELETAL: Extremities 1+peripheral edema. No obvious deformities. NEUROLOGICAL: GCS 3T on no sedation. Right pupil sluggishly reactive left pupil fixed. No gag. No corneal , lid reflex. Does not withdrawal to noxious stimulation. No clonus. Decerebrate posturing noted. Procedures 06/26 repeat EEG 06/27 repeat EEG 06/28 repeat EEG Date of Insertion: Jun 24, 2017 Line: Central Venous Catheter Side: Right Location: Internal, Jugular A/P Assessment and Plan Neuro/Psych: Likely anoxic brain injury Seizure disorder NOS Hx right parietal CVA History of polysubstance abuse - amphetamines and opiates urine drug screen All forms of sedatives, fentanyl discontinued 4 AM 06/26. 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 Loaded with levetiracetam 1 g followed by 500 mg IV twice a day Check Dilantin/valproic acid levels -subtherapeutic. Unknown current drug regimen. Neurology following- Dr. Clark 06/25 EEG -burst suppression pattern consistent with diffuse cerebral disturbance. Right arm posturing not consistent with brain activity. 06/26 repeat EEG -low amplitude possibly indicative of progressive brain edema 06/27 repeat EEG -severe encephalopathy versus anoxic encephalopathy, possible consideration of brain flow study Urine toxicology screen positive for amphetamines and opiates 06/27 ammonia level-28 CV: OHCA Severe sepsis History of AICD placement/ by Dr. Stinson Lactic acidosis QTC prolongation Right bundle branch block single chamber AICD History of severe nonischemic cardiopathy ejection fraction 20% Severe biventricular dysfunction History of recurrent V. fib arrest Elevated troponin New-onset A. fib RVR-resolved Etiology of cardiac arrest unclear. Given 2 mg lorazepam followed by code Due to 50 minute length of code not candidate for code cool On normal saline at 84 cc an hour. Goal to maintain mean artery pressure greater than 65 Serial lactates until clear. Currently 2.2 Serial troponins. Initially 0.04 -> 0.89->0.51 downtrending 06/25 2-D echo-moderate MR, ejection fraction less than 20%, trace TR, trace AR 06/25 EKG reveals normal sinus rhythm 88. Right bundle branch block. QTC 509' Son to obtain home medications. Noted she's been off all medications 3 weeks AICD has been interrogated. No shocks previously noted Previously on mexiletine 200 every 8, carvedilol and entresto 06/26-onset A. fib RVR, placed on Cardizem bolus with infusion. Transition to by mouth Cardizem 30mg QID 06/27- EKG Tentative plan to D activate (NeuroPace)AICD upon decision of family for ventilator withdrawal Resp: Acute hypoxemic respiratory failure PRVC 16/520/1//40 Ventilator bundle Albuterol/ipratropium aerosols every 6 hours albuterol aerosols every 2 hours. Breathing trials if clinically indicated Very low likelihood PE. 06/26 chest x-ray-no acute process GI: Transaminitis OGT to LIWS Famotidine for GI prophylaxis Docusate sodium/senna 1 tablet twice a day for bowel regimen hepatitis panel pending Abdominal ultrasound revealed distended gallbladder without signs of cholecystitis. Enlarged liver. Right renal cyst Start Glucerna 1.5 goal 50 cc an hour for tube feeding Monitor LFTs ,06/26 continued elevation AST 111, ALT 102, alkaline phosphatase 118 : Fernandez catheter is indicated for accurate I's and O's in a critically ill patient Endo: Hyperglycemia Currently on sliding scale insulin with Accu-Cheks every 4 hours to maintain euglycemia/Novulin R medium protocol hemoglobin A1c 7.0 TSH 0.609 Random cortisol level- 52 Renal: Acute kidney injury Right renal cyst Monitor urine output Accurate I's and O's Monitor BMP -creatinine 1.7 Urine eosinophils negative. Abdominal ultrasound revealed no hydronephrosis. With low ejection fraction will gently diurese today. Heme: Persistent Leukocytosis Monitor CBC and coags daily. Follow trends Does not meet transfusion thresholds at this time Monitor WBC Febrile- central fevers?? Apply cooling blanket ID: Urine pneumococcal antigen positive Received vancomycin and piperacillin/tazobactam in ED. We'll continue piperacillin/tazobactam and vancomycin day #3 Blood cultures 2 no growth 06/24. Urine culture, sputum results. Urine pneumococcal antigen positive MSK: PT evaluate and treat Daily functional maintenance FEN: Hypophosphatemia Replace electrolytes as clinically indicated Access - Utilize right IJ CVL day number 2 placed 06/24- 06/27 Prophylaxis - GI - famotidine - DVT - SCD/heparin subcutaneous Dispo: 06/27-Telephoned Damián Wasserman MARSHALL [phone] , provided an update in the patient's medical status to include pending EEG and current neurological assessment. Discussed with Ms. Anali Lake palliative care team, and CURB WORKER at bedside. 06/28- Tentative plan for comfort care measures/ventilator withdrawal after per family request, to allow out of town family members to arrive. Consideration by family of transferring patient to hospice for ventilator withdrawal. This patient remains critically ill with one or more organ systems which are or may become a threat to life. I have spent in excess of 30 minutes discontinuously in the care and management of this patient. This time is exclusive of procedures, and includes, but is not limited to, evaluation of the patient, review of the medical record, discussions with family, consultants, nursing staff, or respiratory therapy, and documentation in the medical record. Physician Agnes Cohen MD Jun 28, 2017 14:49
--- NOTE | 2017-06-28 18:37 | EKG ---
Date Performed: 06/27/2017 Time Performed: 13:59:59 PTAGE: 52 years EKG: Sinus rhythm WITH OCCASIONAL VENTRICULAR PREMATURE COMPLEXES MODERATE T-WAVE ABNORMALITY, CONSIDER ANTERIOR ISCHE MARCELINO Atrial premature complex ABNORMAL ECG PREVIOUS TRACING : 06/26/[address]-T wave changes likely secondary to left ventricular hype rtrophy. Compared to the prior tracing, the patient is no longer in atrial fibrillation. Mild variati on in the LVH/LV strain pattern seen. DOCTOR: Abbe Alcantar Interpretating Date/Time 06/28/2017 18:35:36
[2017-06-29] VITALS (19 sets, daily range): BP systolic 120–155; BP diastolic 62–87; PULSE 72–119; RESP 17–25; TEMP 98.7–101.2; O2SAT 99–100
[2017-06-29] MEDS: HEPARIN SODIUM - SQ 10,000 UNITS/ML VIAL SQ SCH ×2 (01:20→15:11)
[2017-06-29] MEDS: CHLORHEXIDINE GLUCONATE 2 % 1 PACK (2 CLOTHS) TOP SCH (04:00)
[2017-06-29] MEDS: INSULIN NovoLIN REGULAR SUPPLEMENTAL SCALE SQ SCH ×7 (04:00→23:28)
[2017-06-29] MEDS: PIPERACIL-TAZO 4.5 GM PREMIX 100 ML IV SCH ×3 (06:00→21:26)
--- NOTE | 2017-06-29 07:21 | HHI.PR ---
Subjective Remarks of sedative for almost three days Objective Vital Signs Date Time Temp Pulse Resp B/P (MAP) Pulse Ox O2 Delivery O2 Flow Rate FiO2 06/29/17 06:00 104 06/29/17 04:11 100 40 06/29/17 04:00 99.0 98 17 155/87 (109) 100 06/29/17 04:00 97 06/29/17 04:00 40 06/29/17 02:00 95 06/29/17 01:03 100 40 06/29/17 00:00 40 06/29/17 00:00 92 06/29/17 00:00 99.2 86 18 148/85 (106) 100 06/28/17 22:00 79 06/28/17 20:15 100 40 06/28/17 20:00 40 06/28/17 20:00 97 06/28/17 20:00 99.4 114 22 155/96 (115) 100 06/28/17 18:00 101 06/28/17 16:46 100 40 06/28/17 16:00 99.4 93 19 147/82 (103) 100 06/28/17 16:00 93 06/28/17 16:00 40 06/28/17 14:00 92 06/28/17 12:26 100 40 06/28/17 12:00 40 06/28/17 12:00 98 06/28/17 12:00 99.6 98 20 147/85 (105) 100 06/28/17 10:00 88 06/28/17 08:00 40 06/28/17 08:00 93 06/28/17 07:50 100 40 I/O 06/28/17 06/28/17 06/28/17 06/29/17 06/29/17 06/29/17 07:00 15:00 23:00 07:00 15:00 23:00 Intake Total 699 ml 600 ml 870 ml 1100 ml Output Total 800 ml 1000 ml 1200 ml Balance -101 ml 600 ml -130 ml -100 ml Intake Oral 0 ml IV Total 100 ml 600 ml 200 ml 100 ml Tube Feeding 599 ml 670 ml 600 ml Other 400 ml Output Urine Total 800 ml 1000 ml 1200 ml # Bowel Movements 0 2 4 Result Diagram: 06/28/1752906/28/17529 Objective Remarks off sedatives since tuesday dolls nl comatose pupil = to nasal stim some slight head turn still not follow commands flaccid t/o no change some decerebrate bue posturing to pain Assessment and Plan Assessment and Plan imp eeg shows lower amplitudes burst suppression could be cw some inc edema? 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 and if not any beter consider comfort measures 06/27/17 a little copper roller handler printing today observe off sedatives recheck eeg 06/28/17 more rxt to nasal stimuli and dolls but the eeg show what looks like flatline I do not believe she will awaken from this but there is a divergence from eeg looks almost flatline to exam slight moose responses i do think she likely has a severe anoxic cerebral injury could do brain blood flow study and if abn cortical flow consider comfort measure 06/29/17 no change i would agree with hospice and comfort care for anoxic brain injury px for meaningful recovery Marcio Su MD Jun 29, 2017 07:21
[2017-06-29] MEDS: SODIUM CHLORIDE 0.9% FLUSH 10 ML FLUSH IV FLUSH SCH ×2 (08:40→20:57)
[2017-06-29] MEDS: ARTIFICIAL TEARS OPTH SOLN 15 ML BTL EACH EYE SCH ×3 (08:40→17:24)
[2017-06-29] MEDS: FAMOTIDINE 20 MG/2 ML VIAL IV PUSH SCH (08:41)
[2017-06-29] MEDS: DILTIAZEM HCL 30 MG TAB PO SCH ×4 (08:42→20:57)
[2017-06-29] MEDS: levETIRAcetam 1000 MG INJ 100 ML IV SCH ×2 (08:42→20:57)
[2017-06-29] MEDS: INSULIN DETEMIR 100 UNITS/ML VIAL SQ SCH ×2 (08:42→20:57)
[2017-06-29] MEDS: CHLORHEXIDINE 0.12% (ORAL KIT) 15 ML CUP MT SCH ×2 (08:43→20:58)
[2017-06-29] MEDS: LISINOPRIL 5 MG TAB NG SCH (08:43)
[2017-06-29] MEDS: LACTULOSE SYRUP 20 GM/30 ML CUP PO SCH (08:44)
[2017-06-29] MEDS: DOCUSATE SODIUM 50 MG/SENNA 8.6 MG TAB PO SCH ×2 (08:44→20:57)
[2017-06-29] MEDS: CARVEDILOL 6.25 MG TAB PO SCH ×2 (08:46→20:57)
[2017-06-29] MEDS: BENEPROTEIN POWDER 1 PACK G-TUBE SCH ×3 (09:00→17:24)
[2017-06-29] MEDS: VANCOMYCIN 1,500 MG/NS 500 ML IV SCH ×2 (09:23)
--- NOTE | 2017-06-29 10:42 | HHI.HCPN ---
Reason for visit a. To assist with evaluation and management of symptoms including: Encephalopathy, dyspnea b. To assist medical decision maker(s) with: better understanding of current medical conditions; weighing benefits/burdens of medical treatment options; making medical treatment decisions. Subjective/Interval History Patient is a 52-year-old female seen in room 500 of [facility], she remains intubated, mechanically ventilated, patient remains off sedation since 06/26 at 4 AM, unresponsive, positive cough reflex, myoclonic jerking to deep central noxious stimuli. No family is at bedside at during exam. Vital signs fairly stable, patient's t-max 101 in the last 24 hours per bedside RN, patient with ice packs on bilateral groins. No new laboratory data or imaging today. Neurology documented likelihood for meaningful recovery is poor and agrees with comfort focused goals/Hospice. Family/friend interactions Telephone update provided to patient's son Damián, he states that the family will come together with a definitive answer regarding a timeline of withdrawal by Tuesday given the holiday tomorrow. Advance Directives Living Will: Never completed Health Care Surrogate: Never completed Durable Power of Teacher Instrumental: Copy in medical record (son, Damián, is DPOA, HCPOA ) Objective Vital Signs Date Time Temp Pulse Resp B/P (MAP) Pulse Ox O2 Delivery O2 Flow Rate FiO2 06/29/17 07:38 100 40 06/29/17 06:00 104 06/29/17 04:11 100 40 06/29/17 04:00 99.0 98 17 155/87 (109) 100 06/29/17 04:00 97 06/29/17 04:00 40 06/29/17 02:00 95 06/29/17 01:03 100 40 06/29/17 00:00 40 06/29/17 00:00 92 06/29/17 00:00 99.2 86 18 148/85 (106) 100 06/28/17 22:00 79 06/28/17 20:15 100 40 06/28/17 20:00 40 06/28/17 20:00 97 06/28/17 20:00 99.4 114 22 155/96 (115) 100 06/28/17 18:00 101 06/28/17 16:46 100 40 06/28/17 16:00 99.4 93 19 147/82 (103) 100 06/28/17 16:00 93 06/28/17 16:00 40 06/28/17 14:00 92 06/28/17 12:26 100 40 06/28/17 12:00 40 06/28/17 12:00 98 06/28/17 12:00 99.6 98 20 147/85 (105) 100 Intake & Output 06/29/17 06/29/17 07:00 19:00 Intake Total 1300 ml Output Total 1200 ml Balance 100 ml IV Total 300 ml Tube Feeding 600 ml Other 400 ml Output Urine Total 1200 ml # Bowel Movements 4 . Physical Exam CONSTITUTIONAL/GENERAL: This is an adequately nourished patient, intubated, unresponsive, not sedated. TUBES/LINES/DRAINS: LIJ central line, ETT and OGT, Fernandez EYES: Pupils 5 mm, round and reactive. Fundi not examined. ENT: Nose without bleeding or purulent drainage. Oral mucosa dry. NECK: Trachea midline. Supple. CARDIOVASCULAR: Regular rate and irregular rhythm without murmurs, gallops, or rubs. No JVD. Peripheral pulses symmetric. RESPIRATORY/CHEST: Some spontaneous respirations over ventilator rate, course crackles, diminished. GASTROINTESTINAL: Abdomen soft, nondistended. Bowel sounds hypoactive. GENITOURINARY: Without palpable bladder distension. Fernandez catheter in place. MUSCULOSKELETAL: Extremities without cyanosis. 1-2+ generalized edema. No mottling or clubbing. NEUROLOGICAL: Unresponsive with decerebrate posturing. Myoclonic jerking with deep noxious stimuli. Cough reflex present. PSYCHIATRIC: Unresponsive, not sedated. . Diagnostic Tests Laboratory Laboratory Tests Test 06/26/17 11:30 06/26/17 11:38 06/26/17 18:50 06/26/17 23:41 Random Cortisol 52.4 MCG/DL Lactic Acid Level 1.9 mmol/L (0.4-2.0) 1.3 mmol/L (0.4-2.0) 1.0 mmol/L (0.4-2.0) Test 06/27/17 03:52 06/27/17 18:35 06/28/17 05:30 White Blood Count 23.2 TH/MM3 (4.0-11.0) 18.0 TH/MM3 (4.0-11.0) Red Blood Count 3.73 MIL/MM3 (4.00-5.30) 3.66 MIL/MM3 (4.00-5.30) Hemoglobin 11.5 GM/DL (11.6-15.3) 11.3 GM/DL (11.6-15.3) Hematocrit 34.9 % (35.0-46.0) 34.6 % (35.0-46.0) Mean Corpuscular Volume 93.5 FL (80.0-100.0) 94.6 FL (80.0-100.0) Mean Corpuscular Hemoglobin 30.8 PG (27.0-34.0) 30.9 PG (27.0-34.0) Mean Corpuscular Hemoglobin Concent 33.0 % (32.0-36.0) 32.6 % (32.0-36.0) Red Cell Distribution Width 12.7 % (11.6-17.2) 12.8 % (11.6-17.2) Platelet Count 284 TH/MM3 (150-450) 326 TH/MM3 (150-450) Mean Platelet Volume 7.9 FL (7.0-11.0) 8.6 FL (7.0-11.0) Blood Urea Nitrogen 46 MG/DL (7-18) 50 MG/DL (7-18) Creatinine 1.57 MG/DL (0.50-1.00) 1.49 MG/DL (0.50-1.00) Random Glucose 258 MG/DL (74-106) 332 MG/DL (74-106) Total Protein 6.7 GM/DL (6.4-8.2) Albumin 2.4 GM/DL (3.4-5.0) Calcium Level 9.1 MG/DL (8.5-10.1) 9.5 MG/DL (8.5-10.1) Magnesium Level 2.0 MG/DL (1.5-2.5) Alkaline Phosphatase 103 U/L (45-117) Aspartate Amino Transf (AST/SGOT) 66 U/L (15-37) Alanine Aminotransferase (ALT/SGPT) 77 U/L (10-53) Total Bilirubin 0.5 MG/DL (0.2-1.0) Direct Bilirubin 0.1 MG/DL (0.0-0.2) Sodium Level 148 MEQ/L (136-145) 152 MEQ/L (136-145) Potassium Level 3.2 MEQ/L (3.5-5.1) 3.8 MEQ/L (3.5-5.1) 4.0 MEQ/L (3.5-5.1) Chloride Level 114 MEQ/L (98-107) 119 MEQ/L (98-107) Carbon Dioxide Level 24.8 MEQ/L (21.0-32.0) 21.8 MEQ/L (21.0-32.0) Anion Gap 9 MEQ/L (5-15) 11 MEQ/L (5-15) Estimat Glomerular Filtration Rate 34 ML/MIN (>89) 36 ML/MIN (>89) Lactic Acid Level 1.0 mmol/L (0.4-2.0) Indirect Bilirubin 0.4 MG/DL (0.0-0.8) Ammonia 28 MCMOL/L (11-32) Neutrophils (%) (Auto) 88.6 % (16.0-70.0) Lymphocytes (%) (Auto) 7.3 % (9.0-44.0) Monocytes (%) (Auto) 3.9 % (0.0-8.0) Eosinophils (%) (Auto) 0.0 % (0.0-4.0) Basophils (%) (Auto) 0.2 % (0.0-2.0) Neutrophils # (Auto) 15.9 TH/MM3 (1.8-7.7) Lymphocytes # (Auto) 1.3 TH/MM3 (1.0-4.8) Monocytes # (Auto) 0.7 TH/MM3 (0-0.9) Eosinophils # (Auto) 0.0 TH/MM3 (0-0.4) Basophils # (Auto) 0.0 TH/MM3 (0-0.2) CBC Comment DIFF FINAL Differential Comment Random Vancomycin Level 8.7 COMMENT . Result Diagram: 06/28/1752906/28/17529 Procedures 06/24-intubation. 06/24-right IJ central line. 06/24-left EJ Central line . Assessment and Plan Disease Oriented Problem List: (1) Pneumococcal pneumonia (2) Cardiac arrest (3) Lactic acidosis (4) Sepsis (5) Right bundle branch block (6) Anemia (7) Hyperglycemia (8) Leukocytosis (9) Seizure disorder (10) History of CVA (cerebrovascular accident) (11) Elevated transaminase level Symptom Scale: (1) Encephalopathy 0-10 Scale: Unable to quantify (patient is unresponsive.) (2) Dyspnea and respiratory abnormalities 0-10 Scale: Unable to quantify (mechanically ventilated) Pertinent Non-Medical Issues Psychosocial:She was born in [facility] where she lived most of her life , moving to [place] to take care of her mother 10-15 years ago. She was Sikhism but not practicing recently. It is the belief of her son, Damián, that she would like sacrament of the sick. She was twice, first time to the father of her 3 children and then Mr. Vela, from home she is legally . Per the family he was from [place] and is no longer living in this country. Spiritual:She was raised as a Sikhism but is not currently practicing. Sacraments of the sick will be requested. Legal: Her son Damián has been designated as the DPOA/HCPOA. Ethical issues impacting care: None identified. . Important Contacts Son: Damián Guerra Son: Marcio Guerra Son: Marko Guerra Sister: Anna Joe . Prognosis Her prognosis is very poor. She appears to of had a severe anoxic brain injury with a history of a prior stroke. Her downtime was in excess of 40 minutes until ROSC was achieved. Pupils are nonreactive, minimal gag, decerebrate posturing. Ejection fraction is less than 20% with frequent salvos of ventricular tachycardia/WCT seen on telemetry. She has pneumococcal pneumonia. Per cardiology, radiology assistant and neurology, she has a very poor prognosis. . Code Status: Full Code (by default) Plan PLAN: Legal decision maker: Son: Damián Wasserman DPOA/HCPOA Goals: Telephone update provided to patient's son Damián, he states that the family will come together with a definitive answer regarding a timeline of withdrawal by Tuesday given the holiday tomorrow. CODE STATUS: Full code SYMPTOMS: * Encephalopathy: Patient is unresponsive to noxious stimuli. She has been off sedation since 4 AM 06/26. Decerebrate posturing is seen with stimulation. EEGs are grossly abnormal. Per neurology assessment, this is likely a significant anoxic injury and comfort measures would be appropriate if the brain blood flow study is abnormal. No recommendations at this time. * Dyspnea: Minimally breathing over the vent. She is at risk for dyspnea with any type of weaning. She has an underlying pneumonia with sputum cultures positive for staph aureus MRSA and Haemophilus influenzae and remains febrile. Likely unable to protect airway or clear secretions. No recommendations at this time. SUMMARY: Family remains pursuant of comfort care with the eventual goal of extubation/ withdrawal of ventilator support once family members have had the opportunity to save their goodbyes. Patient does have a Medtronic ICD which will require deactivation once the DNR is activated. Palliative care will continue to follow the patient during hospital course as condition evolves, to assist patient/decision-maker with understanding of their medical conditions, weighing benefits/burdens of treatment options, for clarification of goals of treatment. Additionally will assist with any symptoms of palliative concern. . Attestation To help prompt me to consider important information that might be impacting today's encounter and assessment, information from prior notes written by myself or my colleagues may have been "brought forward" into today's note. My signature on this note, however, is an attestation that I personally performed the exam, history, and/or decision-making noted today, and, unless otherwise indicated, the interactions with patient, family, and staff as well as the review of records all occurred today. I also attest that the listed assessment and stated plan reflect my best clinical judgment today based on the combination of historical information, prior notes, and today's exam/ interactions. When time spent is documented, it refers only to time spent today by the signer, or if indicated, combined time spent today by collaborating physician/nurse practitioner. Hortencia Martinez Jun 29, 2017 10:42
--- NOTE | 2017-06-29 12:08 | PD.WCN.NOT ---
Wound Consult Description: Received consult from Doctor Agnes Crystal wound management of sacrum deep tissue injury. Communicated with: JACQUELINE Broussard [facility], JACQUELINE Garcia Carl and Doctor Agnes crystal. Recommendation: 1.Please cleanse opened areas within Deep tissue injury with normal saline and pat dry. Apply skin prep to intact skin of deep tissue injury and cover with bordered gauze.Change dressing daily or PRN if saturated or dislodged. 2. Please apply [place]. 3. Obtain Price airapy bed or if not available please order K-4 bed from [facility] 4. Please continue to turn patient every 2 hours and PRN for comfort and to offloading of pressure from hali prominences Additional Information: Patient seen on 5th floor [facility] for evaluation of wound management of sacrum deep tissue injury. Patient was turned by Elizabeth PHILLIPS C, and staff writer with maximum assist to reveal large amount of liquid brown stool. JACQUELINE Garcia 5th floor [facility] in room for assistance. Cleansed patient of stool to reveal non blanchable area of purple discoloration of sacrum that is opening in two places. Wound appears to be opening to shallow full thickness skin loss between 4 and 5 o'clock. Wound measures 8cm x 4cm. Tissue with in deep tissue injury that is opened is pink and yellow/brown. Wound has minimal sero-sanguinous drainage that is without odor. Cleansed entire wound with normal saline and pat dry. Applied skin prep to intact skin within deep tissue injury. JACQUELINE Johnson 5th floor [facility] to cover wound with bordered gauze after perineal care is completed.Spoke with Doctor crystal regarding recommendations that are noted above and she is in agreement. Received verbal order for wound care. Patricia Ramirez [facility] Jun 29, 2017 12:08
--- NOTE | 2017-06-29 18:16 | HHI.CCPN ---
Subjective Remarks/Hospital Course Initial presentation to [facility] female middle-aged unknown name. She is brought into [facility] full cardiac arrest with ongoing CPR . Noted that information is obtained from ER physician. No family is available. Per EMS, records, they were called this patient's dressings due to a seizure of unknown duration.. Patient has history of seizures. EMS states they gave 2 mg of lorazepam to stop the active seizure at this time. Unfortunately, the patient went into cardiac arrest. ACLS was initiated by EMS. She received 3 doses of epinephrine and a dose of bicarbonate by EMS prior to arrival, with no change in her condition. EMS states they began ACLS protocol around 1010, with arrival to the emergency department around 1040. Patient received an additional 3 rounds of epinephrine and was intubated in the ED. ROSC at [address] 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 Lactic acid elevated 10.9. Troponin 0.04. White blood cell count 19,000. Blood sugar was greater than 400. Elevated transaminases. Patient is currently extending.. Pupils are fixed and dilated at 7 mm bilaterally. X-ray , notice implantable device. Due to likely multiple comorbid conditions patient is not candidate for code cool Subjective 06/25: Tmax 101.3. Currently afebrile. Withdrawals occasionally upper extremity's. Pupils remain around 7 mm and relatively fixed. No gag. Occasionally overbreathing the ventilator. Son will bring in medication list. Real name is Kamini Vela. She is 52. Her son also states that patient has been off medication 3 weeks. 06/26: Afebrile. Patient remains encephalopathic. Repeat EEG pending this a.m. Patient off sedatives since 4 AM. Noted continued elevated LFTs, most likely secondary to shock liver will continue to trend and follow-up ammonia level. Lab report patient positive for pneumococcal pneumonia, continued elevated WBC count. 06/27: Tmax during the night 102.0. The patient remains encephalopathic. Last evening the patient went into A. fib RVR with a heart rate in the 160s Cardizem bolus with initiation of infusion, with resolution during the night. Patient will be transition to by mouth Cardizem today. 3rd EEG performed, neurology following 2/2 possible brain edema noted on previous examination. 06/28: Tmax 101. 2 Remains encephalopathic .repeat EEG yesterday almost flat line, all sedation greater than 48-hours. Adjusted per neurology of severe anoxic brain injury. Family in discussions with palliative care team plan for ventilator withdrawal/comfort care measures after . Family is considering transferred to hospice medical facility and withdrawal and hospice facility. 06/29: Cooling blanket ordered /noted for elevated temperature. Patient remains encephalopathic. Chin was noted to have a sacral DTI opening is unstageable.Wound Care was consulted with recommendations implemented, to include specialty bed. Patient noted to still have elevated glucose Levemir increased to 10 units BID. Objective Vital Signs Date Time Temp Pulse Resp B/P (MAP) Pulse Ox O2 Delivery O2 Flow Rate FiO2 06/29/17 16:04 99 40 06/29/17 16:00 98.7 96 20 134/65 (88) Intake and Output 06/29/17 06/29/17 06/30/17 08:00 16:00 00:00 Intake Total 1100 ml 715 ml Output Total 1200 ml Balance -100 ml 715 ml Result Diagram: 06/28/17 0530 06/28/17 0530 Imaging Last Impressions Chest X-Ray 06/26/17 0600 Signed Impressions: Service Date/Time: Monday, June 26, 2017 03:38 - CONCLUSION: No infiltrates seen. Christopher Mcknight MD Head CT 06/24/17 1108 Signed Impressions: Service Date/Time: Saturday, June 24, 2017 12:48 - CONCLUSION: 1. 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 2. No acute hemorrhage. Rosas Salmon MD Lower Extremity Ultrasound 06/24/17 0000 Signed Impressions: Service Date/Time: Saturday, June 24, 2017 17:17 - CONCLUSION: Negative exam with no evidence of deep venous thrombosis. Damián Purdy MD Abdomen Ultrasound 06/24/17 0000 Signed Impressions: Service Date/Time: Saturday, June 24, 2017 16:59 - CONCLUSION: 1. Gallbladder wall thickening and small amount of pericholecystic fluid with no evidence of cholelithiasis. The findings are nonspecific but could indicate possible acalculus cholecystitis. 2. The liver is enlarged with no focal abnormality. 3. Nonobstructing right renal calculus. Damián Purdy MD Last Impressions Chest X-Ray 06/25/17 0000 Signed Impressions: Service Date/Time: Sunday, June 25, 2017 03:18 - CONCLUSION: 1. ET tube tip 1.6 cm above the ricky and needs to be withdrawn 1 cm. 2. No infiltrate seen. Christopher Mcknight MD Head CT 06/24/17 1108 Signed Impressions: Service Date/Time: Saturday, June 24, 2017 12:48 - CONCLUSION: 1. 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 2. No acute hemorrhage. Rosas Salmon MD Lower Extremity Ultrasound 06/24/17 0000 Signed Impressions: Service Date/Time: Saturday, June 24, 2017 17:17 - CONCLUSION: Negative exam with no evidence of deep venous thrombosis. Damián Purdy MD Abdomen Ultrasound 06/24/17 0000 Signed Impressions: Service Date/Time: Saturday, June 24, 2017 16:59 - CONCLUSION: 1. Gallbladder wall thickening and small amount of pericholecystic fluid with no evidence of cholelithiasis. The findings are nonspecific but could indicate possible acalculus cholecystitis. 2. The liver is enlarged with no focal abnormality. 3. Nonobstructing right renal calculus. Damián Purdy MD Objective Remarks GENERAL: This is a middle-aged well-nourished well-developed critically ill female, currently orotracheally intubated, nonresponsive all sedative SKIN: Warm and dry. Tattoo on right lateral aspect of right leg. HEAD: Atraumatic. Normocephalic. EYES: Pupils equal and round about 7 mm bilaterally and nonreactive. No scleral icterus. No injection or drainage. ENT: No nasal bleeding or discharge. Mucous membranes pink and moist. NECK: Trachea midline. No JVD. CARDIOVASCULAR: Regular rate and rhythm. S1, S2. No S4. RESPIRATORY: No accessory muscle use. Clear to auscultation. Breath sounds equal bilaterally. GASTROINTESTINAL: Abdomen soft, non-tender, nondistended. Hypoactive bowel sounds noted MUSCULOSKELETAL: Extremities 1+peripheral edema. No obvious deformities. NEUROLOGICAL: GCS 3T on no sedation. Right pupil sluggishly reactive left pupil fixed. No gag. No corneal , lid reflex. Does not withdrawal to noxious stimulation. No clonus. Decerebrate posturing noted. Procedures 06/26 repeat EEG 06/27 repeat EEG 06/28 repeat EEG Date of Insertion: Jun 24, 2017 Line: Central Venous Catheter Side: Right Location: Internal, Jugular A/P Assessment and Plan Neuro/Psych: Likely anoxic brain injury Seizure disorder NOS Hx right parietal CVA History of polysubstance abuse - amphetamines and opiates urine drug screen All forms of sedatives, fentanyl discontinued 4 AM 06/26. 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 Loaded with levetiracetam 1 g followed by 500 mg IV twice a day Check Dilantin/valproic acid levels -subtherapeutic. Unknown current drug regimen. Neurology following- Dr. Clark 06/25 EEG -burst suppression pattern consistent with diffuse cerebral disturbance. Right arm posturing not consistent with brain activity. 06/26 repeat EEG -low amplitude possibly indicative of progressive brain edema 06/27 repeat EEG -severe encephalopathy versus anoxic encephalopathy, possible consideration of brain flow study Urine toxicology screen positive for amphetamines and opiates 06/27 ammonia level-28 CV: OHCA Severe sepsis History of AICD placement/ by Dr. Stinson Lactic acidosis QTC prolongation Right bundle branch block single chamber AICD History of severe nonischemic cardiopathy ejection fraction 20% Severe biventricular dysfunction History of recurrent V. fib arrest Elevated troponin New-onset A. fib RVR-resolved Etiology of cardiac arrest unclear. Given 2 mg lorazepam followed by code Due to 50 minute length of code not candidate for code cool On normal saline at 84 cc an hour. Goal to maintain mean artery pressure greater than 65 Serial lactates until clear. Currently 2.2 Serial troponins. Initially 0.04 -> 0.89->0.51 downtrending 06/25 2-D echo-moderate MR, ejection fraction less than 20%, trace TR, trace AR 06/25 EKG reveals normal sinus rhythm 88. Right bundle branch block. QTC 509' Son to obtain home medications. Noted she's been off all medications 3 weeks AICD has been interrogated. No shocks previously noted Previously on mexiletine 200 every 8, carvedilol and entresto 06/26-onset A. fib RVR, placed on Cardizem bolus with infusion. Transition to by mouth Cardizem 30mg QID 06/27- EKG Tentative plan to D activate ([email or web address])AICD upon decision of family for ventilator withdrawal by Palliative care Nino Jaya Resp: Acute hypoxemic respiratory failure PRVC 16/08/12/39 Ventilator bundle Albuterol/ipratropium aerosols every 6 hours albuterol aerosols every 2 hours. Breathing trials if clinically indicated Very low likelihood PE. 06/26 chest x-ray-no acute process GI: Transaminitis OGT to LIWS Famotidine for GI prophylaxis Docusate sodium/senna 1 tablet twice a day for bowel regimen hepatitis panel pending Abdominal ultrasound revealed distended gallbladder without signs of cholecystitis. Enlarged liver. Right renal cyst Start Glucerna 1.5 goal 50 cc an hour for tube feeding Monitor LFTs ,06/26 continued elevation AST 111, ALT 102, alkaline phosphatase 118 : Fernandez catheter is indicated for accurate I's and O's in a critically ill patient Endo: Hyperglycemia Currently on sliding scale insulin with Accu-Cheks every 4 hours to maintain euglycemia/Novulin R medium protocol hemoglobin A1c 7.0 TSH 0.609 Increase Levemir to 10 units twice a day Renal: Acute kidney injury Right renal cyst Monitor urine output Accurate I's and O's Monitor BMP Urine eosinophils negative. Abdominal ultrasound revealed no hydronephrosis. With low ejection fraction will gently diurese today. Heme: Persistent Leukocytosis Monitor CBC and coags daily. Follow trends Does not meet transfusion thresholds at this time Monitor WBC Febrile- central fevers?? Apply cooling blanket ID: Urine pneumococcal antigen positive Received vancomycin and piperacillin/tazobactam in ED. We'll continue piperacillin/tazobactam and vancomycin day #3 Blood cultures 2 no growth 06/24. Urine culture, sputum results. Urine pneumococcal antigen positive MSK: PT evaluate and treat Daily functional maintenance FEN: Hypophosphatemia Replace electrolytes as clinically indicated Access - Utilize right IJ CVL day number 2 placed 06/24- 06/27 Prophylaxis - GI - famotidine - DVT - SCD/heparin subcutaneous Dispo: 06/27-Telephoned Damián OLIVARES [phone] , provided an update in the patient's medical status to include pending EEG and current neurological assessment. Discussed with Ms. Anali Lake palliative care team, and CONTACT CENTER CONSULTANT at bedside. 06/28- Tentative plan for comfort care measures/ventilator withdrawal after per family request, to allow out of town family members to arrive. Consideration by family of transferring patient to hospice for ventilator withdrawal. This patient remains critically ill with one or more organ systems which are or may become a threat to life. I have spent in excess of 32 minutes discontinuously in the care and management of this patient. This time is exclusive of procedures, and includes, but is not limited to, evaluation of the patient, review of the medical record, discussions with family, consultants, nursing staff, or respiratory therapy, and documentation in the medical record. Physician Agnes Cohen MD Jun 29, 2017 18:15
[2017-06-30] VITALS (18 sets, daily range): BP systolic 120–155; BP diastolic 65–91; PULSE 71–97; RESP 24–26; TEMP 98.2–100.5; O2SAT 93–100
[2017-06-30] MEDS: HEPARIN SODIUM - SQ 10,000 UNITS/ML VIAL SQ SCH ×2 (02:41→15:54)
[2017-06-30] MEDS: INSULIN NovoLIN REGULAR SUPPLEMENTAL SCALE SQ SCH ×5 (03:33→21:12)
[2017-06-30] MEDS: CHLORHEXIDINE GLUCONATE 2 % 1 PACK (2 CLOTHS) TOP SCH (03:34)
[2017-06-30] MEDS: PIPERACIL-TAZO 4.5 GM PREMIX 100 ML IV SCH ×3 (05:03→21:13)
--- NOTE | 2017-06-30 05:22 | RADRPT ---
EXAM DATE/TIME: 06/30/2017 03:57 [place] COMPARISON: CHEST SINGLE AP, June 26, 2017, 3:38. INDICATIONS : Evaluate for pneumonia- Respiratory failure MEDICAL HISTORY : Myocardial infarction. SURGICAL HISTORY : Pacemaker. ENCOUNTER: Subsequent ACUITY: 1 week PAIN SCORE: Non-responsive. LOCATION: Bilateral chest FINDINGS: Mild left base infiltrate and small pleural effusion slightly larger in the interim. Right lung remai ns reasonably clear. No pneumothorax. Heart size stable, upper limits of normal. Cardiac pacer/defibrillator again noted. Endotracheal tube tip is approximately 2.5 cm above the ricky. Nasogastric tube courses into the sto mach. CONCLUSION: Mild infiltrate and small effusion at the left lung base, slightly increased. Marko Spears MD on June 30, 2017 at 5:19 Board Certified Radiologist. This report was verified electronically.
[2017-06-30 05:27] LABS: HEMATOCRIT 37.8 % (35.0-46.0); MEAN CELL VOLUME 94.7 FL (80.0-100.0); MEAN CORPUSCULAR HEMOGLOBIN 30.9 PG (27.0-34.0); MEAN CORPUSCULAR HGB CONC 32.6 % (32.0-36.0); PLATELET COUNT 303 TH/MM3 (150-450); RED BLOOD COUNT 3.99 MIL/MM3 (4.00-5.30); RED CELL DISTRIBUTION WIDTH 12.6 % (11.6-17.2); REVIEW FLAG FINAL; WHITE BLOOD COUNT 23.6 TH/MM3 (4.0-11.0)
[2017-06-30 05:49] LABS: BICARBONATE 26.4 MEQ/L (21.0-32.0); MAGNESIUM 2.5 MG/DL (1.5-2.5); POTASSIUM 3.1 MEQ/L (3.5-5.1)
[2017-06-30] MEDS: POTASSIUM CHLOR 20 MEQ PREMIX 100 ML IV PRN ×2 (06:33→15:54)
[2017-06-30] MEDS: FREE WATER G-TUBE SCH ×3 (07:00→18:00)
--- NOTE | 2017-06-30 07:29 | HHI.CCPN ---
Subjective Remarks/Hospital Course Initial presentation to [facility] female middle-aged unknown name. She is brought into [facility] full cardiac arrest with ongoing CPR . Noted that information is obtained from ER physician. No family is available. Per EMS, records, they were called this patient's dressings due to a seizure of unknown duration.. Patient has history of seizures. EMS states they gave 2 mg of lorazepam to stop the active seizure at this time. Unfortunately, the patient went into cardiac arrest. ACLS was initiated by EMS. She received 3 doses of epinephrine and a dose of bicarbonate by EMS prior to arrival, with no change in her condition. EMS states they began ACLS protocol around 1010, with arrival to the emergency department around 1040. Patient received an additional 3 rounds of epinephrine and was intubated in the ED. ROSC at [address] 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 Lactic acid elevated 10.9. Troponin 0.04. White blood cell count 19,000. Blood sugar was greater than 400. Elevated transaminases. Patient is currently extending.. Pupils are fixed and dilated at 7 mm bilaterally. X-ray , notice implantable device. Due to likely multiple comorbid conditions patient is not candidate for code cool Subjective 06/25: Tmax 101.3. Currently afebrile. Withdrawals occasionally upper extremity's. Pupils remain around 7 mm and relatively fixed. No gag. Occasionally overbreathing the ventilator. Son will bring in medication list. Real name is Kamini Vela. She is 52. Her son also states that patient has been off medication 3 weeks. 06/26: Afebrile. Patient remains encephalopathic. Repeat EEG pending this a.m. Patient off sedatives since 4 AM. Noted continued elevated LFTs, most likely secondary to shock liver will continue to trend and follow-up ammonia level. Lab report patient positive for pneumococcal pneumonia, continued elevated WBC count. 06/27: Tmax during the night 102.0. The patient remains encephalopathic. Last evening the patient went into A. fib RVR with a heart rate in the 160s Cardizem bolus with initiation of infusion, with resolution during the night. Patient will be transition to by mouth Cardizem today. 3rd EEG performed, neurology following 2/2 possible brain edema noted on previous examination. 06/28: Tmax 101. 2 Remains encephalopathic .repeat EEG yesterday almost flat line, all sedation greater than 48-hours. Adjusted per neurology of severe anoxic brain injury. Family in discussions with palliative care team plan for ventilator withdrawal/comfort care measures after . Family is considering transferred to hospice medical facility and withdrawal and hospice facility. 06/29: Cooling blanket ordered / noted for elevated temperature. Patient remains encephalopathic. Patient was noted to have a sacral DTI opening is unstageable.Wound Care was consulted with recommendations implemented to include specialty bed. Patient noted to still have elevated glucose Levemir increased to 10 units BID. 06/30: TMax 100.5. Cooling blanket not applied, requested application of cooling blanket. Patient still currently on regular hospital bed, requested again specialty bed 2/2 sacral wounds. The patient continues to remain nonresponsive, no change in neurological status. Patient noted to have persistent leukocytosis currently on Vanc and Zosyn, will add levofloxacin to medication regimen Objective Vital Signs Date Time Temp Pulse Resp B/P (MAP) Pulse Ox O2 Delivery O2 Flow Rate FiO2 06/30/17 06:00 94 06/30/17 04:23 97 40 06/30/17 04:00 100.5 25 143/91 (108) Intake and Output 06/30/17 06/30/17 07/01/17 08:00 16:00 00:00 Intake Total 981 ml Output Total 1300 ml Balance -319 ml Result Diagram: 06/30/17 0433 06/30/17 0433 Imaging Last Impressions Chest X-Ray 06/30/17 0600 Signed Impressions: Service Date/Time: June 03:57 - CONCLUSION: Mild infiltrate and small effusion at the left lung base, slightly increased. Marko Spears MD Head CT 06/24/17 1108 Signed Impressions: Service Date/Time: Saturday, June 24, 2017 12:48 - CONCLUSION: 1. 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 2. No acute hemorrhage. Rosas Salmon MD Lower Extremity Ultrasound 06/24/17 0000 Signed Impressions: Service Date/Time: Saturday, June 24, 2017 17:17 - CONCLUSION: Negative exam with no evidence of deep venous thrombosis. Damián Purdy MD Abdomen Ultrasound 06/24/17 0000 Signed Impressions: Service Date/Time: Saturday, June 24, 2017 16:59 - CONCLUSION: 1. Gallbladder wall thickening and small amount of pericholecystic fluid with no evidence of cholelithiasis. The findings are nonspecific but could indicate possible acalculus cholecystitis. 2. The liver is enlarged with no focal abnormality. 3. Nonobstructing right renal calculus. Damián Purdy MD Last Impressions Chest X-Ray 06/26/17 0600 Signed Impressions: Service Date/Time: Monday, June 26, 2017 03:38 - CONCLUSION: No infiltrates seen. Christopher Mcknight MD Head CT 06/24/17 1108 Signed Impressions: Service Date/Time: Saturday, June 24, 2017 12:48 - CONCLUSION: 1. 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 2. No acute hemorrhage. Rosas Salmon MD Lower Extremity Ultrasound 06/24/17 0000 Signed Impressions: Service Date/Time: Saturday, June 24, 2017 17:17 - CONCLUSION: Negative exam with no evidence of deep venous thrombosis. Damián Purdy MD Abdomen Ultrasound 06/24/17 0000 Signed Impressions: Service Date/Time: Saturday, June 24, 2017 16:59 - CONCLUSION: 1. Gallbladder wall thickening and small amount of pericholecystic fluid with no evidence of cholelithiasis. The findings are nonspecific but could indicate possible acalculus cholecystitis. 2. The liver is enlarged with no focal abnormality. 3. Nonobstructing right renal calculus. Damián Purdy MD Last Impressions Chest X-Ray 06/25/17 0000 Signed Impressions: Service Date/Time: Sunday, June 25, 2017 03:18 - CONCLUSION: 1. ET tube tip 1.6 cm above the ricky and needs to be withdrawn 1 cm. 2. No infiltrate seen. Christopher Mcknight MD Head CT 06/24/17 1108 Signed Impressions: Service Date/Time: Saturday, June 24, 2017 12:48 - CONCLUSION: 1. 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 2. No acute hemorrhage. Rosas Salmon MD Lower Extremity Ultrasound 06/24/17 0000 Signed Impressions: Service Date/Time: Saturday, June 24, 2017 17:17 - CONCLUSION: Negative exam with no evidence of deep venous thrombosis. Damián Purdy MD Abdomen Ultrasound 06/24/17 0000 Signed Impressions: Service Date/Time: Saturday, June 24, 2017 16:59 - CONCLUSION: 1. Gallbladder wall thickening and small amount of pericholecystic fluid with no evidence of cholelithiasis. The findings are nonspecific but could indicate possible acalculus cholecystitis. 2. The liver is enlarged with no focal abnormality. 3. Nonobstructing right renal calculus. Damián Purdy MD Objective Remarks GENERAL: This is a middle-aged well-nourished well-developed critically ill female, currently orotracheally intubated, nonresponsive SKIN: Warm and dry. Tattoo on right lateral aspect of right leg. HEAD: Atraumatic. Normocephalic. EYES: Pupils equal and round about 7 mm bilaterally and nonreactive. No scleral icterus. No injection or drainage. ENT: No nasal bleeding or discharge. Mucous membranes pink and moist. NECK: Trachea midline. No JVD. CARDIOVASCULAR: Regular rate and rhythm. S1, S2. No S4. RESPIRATORY: No accessory muscle use. Clear to auscultation. Breath sounds equal bilaterally. GASTROINTESTINAL: Abdomen soft, non-tender, nondistended. Hypoactive bowel sounds noted MUSCULOSKELETAL: Extremities 1+peripheral edema. No obvious deformities. NEUROLOGICAL: GCS 3T on no sedation. Right pupil sluggishly reactive left pupil fixed. No gag. No corneal , lid reflex. Does not withdrawal to noxious stimulation. No clonus. Flacid extremities. Procedures 06/26 repeat EEG 06/27 repeat EEG 06/28 repeat EEG Date of Insertion: Jun 24, 2017 Line: Central Venous Catheter Side: Right Location: Internal, Jugular A/P Assessment and Plan Neuro/Psych: Likely anoxic brain injury Seizure disorder NOS Hx right parietal CVA History of polysubstance abuse - amphetamines and opiates urine drug screen All forms of sedatives, fentanyl discontinued 4 AM 06/26. 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 Loaded with levetiracetam 1 g followed by 500 mg IV twice a day Check Dilantin/valproic acid levels -subtherapeutic. Unknown current drug regimen. Neurology following- Dr. Clark 06/25 EEG -burst suppression pattern consistent with diffuse cerebral disturbance. Right arm posturing not consistent with brain activity. 06/26 repeat EEG -low amplitude possibly indicative of progressive brain edema 06/27 repeat EEG -severe encephalopathy versus anoxic encephalopathy, possible consideration of brain flow study Urine toxicology screen positive for amphetamines and opiates 06/27 ammonia level-28 CV: OHCA Severe sepsis History of AICD placement/ by Dr. Stinson Lactic acidosis QTC prolongation Right bundle branch block single chamber AICD History of severe nonischemic cardiopathy ejection fraction 20% Severe biventricular dysfunction History of recurrent V. fib arrest Elevated troponin New-onset A. fib RVR-resolved Etiology of cardiac arrest unclear. Given 2 mg lorazepam followed by code Due to 50 minute length of code not candidate for code cool On normal saline at 84 cc an hour. Goal to maintain mean artery pressure greater than 65 Serial lactates until clear. Currently 2.2 Serial troponins. Initially 0.04 -> 0.89->0.51 downtrending 06/25 2-D echo-moderate MR, ejection fraction less than 20%, trace TR, trace AR 06/25 EKG reveals normal sinus rhythm 88. Right bundle branch block. QTC 509' Son to obtain home medications. Noted she's been off all medications 3 weeks AICD has been interrogated. No shocks previously noted Previously on mexiletine 200 every 8, carvedilol and entresto 06/26-onset A. fib RVR, placed on Cardizem bolus with infusion. Transition to by mouth Cardizem 30mg QID 06/27- EKG Tentative plan to D activate (Flicstarttronic)AICD upon decision of family for ventilator withdrawal Resp: Acute hypoxemic respiratory failure [facility] 16/520/08/12/39 Ventilator bundle Albuterol/ipratropium aerosols every 6 hours albuterol aerosols every 2 hours. Breathing trials if clinically indicated Very low likelihood PE. 06/26 chest x-ray-no acute process GI: Transaminitis OGT to LIWS Famotidine for GI prophylaxis Docusate sodium/senna 1 tablet twice a day for bowel regimen hepatitis panel pending Abdominal ultrasound revealed distended gallbladder without signs of cholecystitis. Enlarged liver. Right renal cyst Start Glucerna 1.5 goal 50 cc an hour for tube feeding Monitor LFTs ,06/26 continued elevation AST 111, ALT 102, alkaline phosphatase 118 : Fernandez catheter is indicated for accurate I's and O's in a critically ill patient Endo: Hyperglycemia Currently on sliding scale insulin with Accu-Cheks every 4 hours to maintain euglycemia/Novulin R medium protocol hemoglobin A1c 7.0 TSH 0.609 Random cortisol level- 52 Renal: Acute kidney injury Right renal cyst Monitor urine output Accurate I's and O's Monitor BMP -creatinine 1.7 Urine eosinophils negative. Abdominal ultrasound revealed no hydronephrosis. With low ejection fraction will gently diurese today. Heme: Persistent Leukocytosis Monitor CBC and coags daily. Follow trends Does not meet transfusion thresholds at this time Monitor WBC Febrile- central fevers?? Vancomycin ? or infectious Apply cooling blanket ID: Urine pneumococcal antigen positive Received vancomycin and piperacillin/tazobactam in ED. We'll continue piperacillin/tazobactam and vancomycin day #5 Blood cultures 2 no growth 06/24. Urine pneumococcal antigen positive Sputum- MRSA, H. influenza Febrile- central fevers?? Vancomycin ? or infectious Apply cooling blanket her temperature management MSK: PT evaluate and treat Daily functional maintenance Deep tissue injury-sacrum, continue to follow wound care recommendations Place patient on therapy or specialty bed FEN: Hypophosphatemia Replace electrolytes as clinically indicated Access - Utilize right IJ CVL day 06/24- 06/27 Prophylaxis - GI - famotidine - DVT - SCD/heparin subcutaneous Dispo: 06/27-Telephoned Damián Wasserman MARSHALL [phone] , provided an update in the patient's medical status to include pending EEG and current neurological assessment. Discussed with Ms. Anali Lake palliative care team, and [employer] at bedside. 06/28- Tentative plan for comfort care measures/ventilator withdrawal after per family request, to allow out of town family members to arrive. Consideration by family of transferring patient to hospice for ventilator withdrawal. This patient remains critically ill with one or more organ systems which are or may become a threat to life. I have spent in excess of 35 minutes discontinuously in the care and management of this patient. This time is exclusive of procedures, and includes, but is not limited to, evaluation of the patient, review of the medical record, discussions with family, consultants, nursing staff, or respiratory therapy, and documentation in the medical record. Physician Agnes Cohen MD Jun 30, 2017 07:29
[2017-06-30] MEDS: CHLORHEXIDINE 0.12% (ORAL KIT) 15 ML CUP MT SCH ×2 (08:00→21:11)
[2017-06-30] MEDS: BENEPROTEIN POWDER 1 PACK G-TUBE SCH ×3 (09:00→18:00)
[2017-06-30] MEDS ORDERED: LEVOFLOXACIN 750 MG PREMIX INJ 150 ML IV SCH (09:00)
[2017-06-30] MEDS: INSULIN DETEMIR 100 UNITS/ML VIAL SQ SCH ×2 (09:00→21:13)
[2017-06-30] MEDS ORDERED: PHARMACY ORDERED LAB ONE (09:45)
[2017-06-30] MEDS: DOCUSATE SODIUM 50 MG/SENNA 8.6 MG TAB PO SCH ×2 (11:20→21:11)
[2017-06-30] MEDS: CARVEDILOL 6.25 MG TAB PO SCH ×2 (11:21→21:10)
[2017-06-30] MEDS: LACTULOSE SYRUP 20 GM/30 ML CUP PO SCH (11:21)
[2017-06-30] MEDS: DILTIAZEM HCL 30 MG TAB PO SCH ×4 (11:21→21:10)
[2017-06-30] MEDS: LISINOPRIL 5 MG TAB NG SCH (11:21)
[2017-06-30] MEDS: FAMOTIDINE 20 MG/2 ML VIAL IV PUSH SCH (11:22)
[2017-06-30] MEDS: levETIRAcetam 1000 MG INJ 100 ML IV SCH ×2 (11:22→21:10)
[2017-06-30] MEDS: SODIUM CHLORIDE 0.9% FLUSH 10 ML FLUSH IV FLUSH SCH ×2 (11:23→21:10)
[2017-06-30] MEDS: ARTIFICIAL TEARS OPTH SOLN 15 ML BTL EACH EYE SCH ×3 (11:24→18:00)
[2017-06-30] MEDS: VANCOMYCIN 1,500 MG/NS 500 ML IV SCH ×2 (13:49)
[2017-07-01] VITALS (10 sets, daily range): BP systolic 110–150; BP diastolic 67–80; PULSE 71–96; RESP 17–27; TEMP 97.6–98.3; O2SAT 88–100
[2017-07-01] MEDS: POTASSIUM CHLOR 20 MEQ PREMIX 100 ML IV PRN ×2 (01:00→06:50)
[2017-07-01] MEDS: HEPARIN SODIUM - SQ 10,000 UNITS/ML VIAL SQ SCH (03:00)
[2017-07-01] MEDS: INSULIN NovoLIN REGULAR SUPPLEMENTAL SCALE SQ SCH ×3 (04:00→08:00)
[2017-07-01] MEDS: CHLORHEXIDINE GLUCONATE 2 % 1 PACK (2 CLOTHS) TOP SCH (04:00)
[2017-07-01] MEDS: FREE WATER G-TUBE SCH ×2 (06:00)
[2017-07-01] MEDS: PIPERACIL-TAZO 4.5 GM PREMIX 100 ML IV SCH (06:00)
[2017-07-01] MEDS: levETIRAcetam 1000 MG INJ 100 ML IV SCH ×2 (09:35→21:00)
[2017-07-01] MEDS: DOCUSATE SODIUM 50 MG/SENNA 8.6 MG TAB PO SCH ×2 (09:36→21:00)
[2017-07-01] MEDS: DILTIAZEM HCL 30 MG TAB PO SCH (09:36)
[2017-07-01] MEDS: LISINOPRIL 5 MG TAB NG SCH (09:36)
[2017-07-01] MEDS: LACTULOSE SYRUP 20 GM/30 ML CUP PO SCH (09:36)
[2017-07-01] MEDS: CARVEDILOL 6.25 MG TAB PO SCH (09:36)
[2017-07-01] MEDS: INSULIN DETEMIR 100 UNITS/ML VIAL SQ SCH (09:37)
[2017-07-01] MEDS: ARTIFICIAL TEARS OPTH SOLN 15 ML BTL EACH EYE SCH (09:38)
[2017-07-01] MEDS: CHLORHEXIDINE 0.12% (ORAL KIT) 15 ML CUP MT SCH (09:38)
[2017-07-01] MEDS: BENEPROTEIN POWDER 1 PACK G-TUBE SCH (09:38)
[2017-07-01] MEDS: SODIUM CHLORIDE 0.9% FLUSH 10 ML FLUSH IV FLUSH SCH (09:39)
[2017-07-01] MEDS ORDERED: PHARMACY ORDERED LAB ONE (09:45)
--- NOTE | 2017-07-01 11:15 | HHI.HCPN ---
Reason for visit a. To assist with evaluation and management of symptoms including: Encephalopathy, dyspnea b. To assist medical decision maker(s) with: better understanding of current medical conditions; weighing benefits/burdens of medical treatment options; making medical treatment decisions. Subjective/Interval History Patient seen for follow up today, patient's friend Vonda at bedside, patient remains intubated, mechanically ventilated, on no sedation, unresponsive, cough reflex present. Still with persistent leukocytosis, T-max 100.5 in the past 24 hours. Family plans to arrive at approximately 1200 to discuss withdrawal of artificial life support and transition to comfort focused goals of care. Family/friend interactions Telephone conference with patient's son Damián at 1000am, plans to arrive at about 1200 to discuss withdrawal of artificial life support and transition to comfort focused goals of care. Advance Directives Living Will: Never completed Health Care Surrogate: Never completed Durable Power of Stem Assembler: Copy in medical record (son, Damián, is DPOA, HCPOA ) Objective Vital Signs Date Time Temp Pulse Resp B/P (MAP) Pulse Ox O2 Delivery O2 Flow Rate FiO2 07/01/17 07:43 100 40 07/01/17 06:00 84 07/01/17 04:20 100 40 07/01/17 04:00 40 07/01/17 04:00 75 07/01/17 04:00 97.8 75 19 139/80 (99) 100 07/01/17 02:00 72 07/01/17 00:55 100 40 07/01/17 00:00 71 07/01/17 00:00 97.6 71 22 110/67 (81) 100 07/01/17 00:00 40 06/30/17 22:00 85 06/30/17 21:40 100 40 06/30/17 20:00 98.2 85 24 133/78 (96) 100 06/30/17 20:00 40 06/30/17 20:00 85 06/30/17 18:00 79 06/30/17 16:15 98 40 06/30/17 16:00 98.9 76 24 120/66 (84) 98 06/30/17 16:00 76 06/30/17 16:00 40 06/30/17 14:00 97 06/30/17 12:10 96 40 06/30/17 12:00 97 06/30/17 12:00 99.7 97 25 149/85 (106) 96 06/30/17 12:00 40 Intake & Output 07/01/17 07/01/17 07:00 19:00 Intake Total 613 ml Output Total 900 ml Balance -287 ml Tube Feeding 613 ml Output Urine Total 600 ml Stool Total 300 ml . Physical Exam CONSTITUTIONAL/GENERAL: This is an adequately nourished patient, intubated, unresponsive, not sedated. TUBES/LINES/DRAINS: LIJ central line, ETT and OGT, Fernandez, rectal tube EYES: Pupils 5 mm, round and reactive. Fundi not examined. CARDIOVASCULAR: Regular rate and irregular rhythm without murmurs, gallops, or rubs. No JVD. Peripheral pulses symmetric. RESPIRATORY/CHEST: Some spontaneous respirations over ventilator rate, course crackles, diminished. GASTROINTESTINAL: Abdomen soft, nondistended. Bowel sounds hypoactive. GENITOURINARY: Without palpable bladder distension. Fernandez catheter in place. MUSCULOSKELETAL: Extremities without cyanosis. 1-2+ generalized edema. No mottling or clubbing. NEUROLOGICAL: Unresponsive with decerebrate posturing. Cough reflex present. PSYCHIATRIC: Unresponsive, not sedated. . Diagnostic Tests Laboratory Laboratory Tests Test 06/30/17 04:33 07/01/17 05:41 White Blood Count 23.6 TH/MM3 (4.0-11.0) Red Blood Count 3.99 MIL/MM3 (4.00-5.30) Hemoglobin 12.3 GM/DL (11.6-15.3) Hematocrit 37.8 % (35.0-46.0) Mean Corpuscular Volume 94.7 FL (80.0-100.0) Mean Corpuscular Hemoglobin 30.9 PG (27.0-34.0) Mean Corpuscular Hemoglobin Concent 32.6 % (32.0-36.0) Red Cell Distribution Width 12.6 % (11.6-17.2) Platelet Count 303 TH/MM3 (150-450) Mean Platelet Volume 8.4 FL (7.0-11.0) Blood Urea Nitrogen 46 MG/DL (7-18) Creatinine 1.42 MG/DL (0.50-1.00) 1.24 MG/DL (0.50-1.00) Random Glucose 287 MG/DL (74-106) Calcium Level 9.1 MG/DL (8.5-10.1) Phosphorus Level 2.2 MG/DL (2.5-4.9) Magnesium Level 2.5 MG/DL (1.5-2.5) Sodium Level 158 MEQ/L (136-145) Potassium Level 3.1 MEQ/L (3.5-5.1) Chloride Level 123 MEQ/L (98-107) Carbon Dioxide Level 26.4 MEQ/L (21.0-32.0) Anion Gap 9 MEQ/L (5-15) Estimat Glomerular Filtration Rate 39 ML/MIN (>89) 45 ML/MIN (>89) . Result Diagram: 06/30/17 0433 07/01/17 0541 Procedures 06/24-intubation. 06/24-right IJ central line. 06/24-left EJ Central line . Assessment and Plan Disease Oriented Problem List: (1) Pneumococcal pneumonia (2) Cardiac arrest (3) Lactic acidosis (4) Sepsis (5) Right bundle branch block (6) Anemia (7) Hyperglycemia (8) Leukocytosis (9) Seizure disorder (10) History of CVA (cerebrovascular accident) (11) Elevated transaminase level Symptom Scale: (1) Encephalopathy 0-10 Scale: Unable to quantify (patient is unresponsive.) (2) Dyspnea and respiratory abnormalities 0-10 Scale: Unable to quantify (mechanically ventilated) Pertinent Non-Medical Issues Psychosocial:She was born in [facility] where she lived most of her life , moving to [place] to take care of her mother 10-15 years ago. She was Jewish but not practicing recently. It is the belief of her son, Damián, that she would like sacrament of the sick. She was twice, first time to the father of her 3 children and then Mr. Vela, from home she is legally . Per the family he was from [place] and is no longer living in this country. Spiritual:She was raised as a Jewish but is not currently practicing. Sacraments of the sick will be requested. Legal: Her son Damián has been designated as the DPOA/HCPOA. Ethical issues impacting care: None identified. . Important Contacts Son: Damián Guerra Son: Marcio Guerra Son: Marko Guerra Sister: Anna Joe . Prognosis Her prognosis is very poor. She appears to of had a severe anoxic brain injury with a history of a prior stroke. Her downtime was in excess of 40 minutes until ROSC was achieved. Pupils are nonreactive, minimal gag, decerebrate posturing. Ejection fraction is less than 20% with frequent salvos of ventricular tachycardia/WCT seen on telemetry. She has pneumococcal pneumonia. Per cardiology, paster hat lining and neurology, she has a very poor prognosis. . Code Status: No Code Plan PLAN: Legal decision maker: Son: Damián Wasserman DPOA/HCPOA Goals: Comfort focused. Meeting with patient's son Damián (DPOA/HCPOA) in conference room, also present his girlfriend, patient's sister Anna, her daughter. Discussed transition to comfort focused goals and withdrawal of artificial life support. Exhibits B & C signed and on the chart. Plan to withdraw artificial life support today 07/01/17. CODE STATUS: DNR SYMPTOMS: * Encephalopathy: Patient is unresponsive to noxious stimuli. She has been off sedation since 4 AM 06/26. Decerebrate posturing is seen with stimulation. EEGs are grossly abnormal. Per neurology assessment, this is likely a significant anoxic injury and comfort measures would be appropriate if the brain blood flow study is abnormal. No recommendations at this time. * Dyspnea: Minimally breathing over the vent. She is at risk for dyspnea with any type of weaning. She has an underlying pneumonia with sputum cultures positive for staph aureus MRSA and Haemophilus influenzae and remains febrile. Likely unable to protect airway or clear secretions. No recommendations at this time. SUMMARY: Family remains pursuant of comfort care with the eventual goal of extubation/ withdrawal of ventilator support once family members have had the opportunity to save their goodbyes. Patient does have a Medtronic ICD which will require deactivation once the DNR is activated. Palliative care will continue to follow the patient during hospital course as condition evolves, to assist patient/decision-maker with understanding of their medical conditions, weighing benefits/burdens of treatment options, for clarification of goals of treatment. Additionally will assist with any symptoms of palliative concern. . Attestation To help prompt me to consider important information that might be impacting today's encounter and assessment, information from prior notes written by myself or my colleagues may have been "brought forward" into today's note. My signature on this note, however, is an attestation that I personally performed the exam, history, and/or decision-making noted today, and, unless otherwise indicated, the interactions with patient, family, and staff as well as the review of records all occurred today. I also attest that the listed assessment and stated plan reflect my best clinical judgment today based on the combination of historical information, prior notes, and today's exam/ interactions. When time spent is documented, it refers only to time spent today by the signer, or if indicated, combined time spent today by collaborating physician/nurse practitioner. Hortencia Martinez Jul 01, 2017 11:15
[2017-07-01] MEDS ORDERED: HYOSCYAMINE 0.5 MG/ML AMP IV PUSH ONE (13:00)
[2017-07-01] MEDS ORDERED: LORazepam 2 MG/ML VIAL IV PUSH ONE ×2 (13:00→13:30)
[2017-07-01] MEDS ORDERED: HYDROmorphone HCL PF 2 MG/ML VIAL IV PUSH ONE ×2 (13:00→13:30)
[2017-07-01] MEDS ORDERED: HYDROmorphone HCL PF 2 MG/ML VIAL IV PUSH PRN ×2 (13:30)
[2017-07-01] MEDS ORDERED: ACETAMINOPHEN 650 MG SUPP RECTAL PRN (13:30)
[2017-07-01] MEDS ORDERED: FUROSEMIDE 20 MG/2 ML VIAL IV PUSH PRN (13:30)
[2017-07-01] MEDS ORDERED: HYOSCYAMINE 0.5 MG/ML AMP IV PUSH PRN (13:30)
[2017-07-01] MEDS ORDERED: LORazepam 2 MG/ML VIAL IV PUSH PRN ×3 (13:30)
[2017-07-01] MEDS ORDERED: BISACODYL 10 MG SUPP RECTAL PRN (13:30)
[2017-07-01] MEDS: LORazepam 2 MG/ML VIAL IV PUSH SCH ×2 (15:53→21:26)
--- NOTE | 2017-07-01 18:46 | HHI.CCPN ---
Subjective Remarks/Hospital Course Initial presentation to [facility] female middle-aged unknown name. She is brought into [facility] full cardiac arrest with ongoing CPR . Noted that information is obtained from ER physician. No family is available. Per EMS, records, they were called this patient's dressings due to a seizure of unknown duration.. Patient has history of seizures. EMS states they gave 2 mg of lorazepam to stop the active seizure at this time. Unfortunately, the patient went into cardiac arrest. ACLS was initiated by EMS. She received 3 doses of epinephrine and a dose of bicarbonate by EMS prior to arrival, with no change in her condition. EMS states they began ACLS protocol around 1010, with arrival to the emergency department around 1040. Patient received an additional 3 rounds of epinephrine and was intubated in the ED. ROSC at [address] 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 Lactic acid elevated 10.9. Troponin 0.04. White blood cell count 19,000. Blood sugar was greater than 400. Elevated transaminases. Patient is currently extending.. Pupils are fixed and dilated at 7 mm bilaterally. X-ray , notice implantable device. Due to likely multiple comorbid conditions patient is not candidate for code cool Subjective 06/25: Tmax 101.3. Currently afebrile. Withdrawals occasionally upper extremity's. Pupils remain around 7 mm and relatively fixed. No gag. Occasionally overbreathing the ventilator. Son will bring in medication list. Real name is Kamini Vela. She is 52. Her son also states that patient has been off medication 3 weeks. 06/26: Afebrile. Patient remains encephalopathic. Repeat EEG pending this a.m. Patient off sedatives since 4 AM. Noted continued elevated LFTs, most likely secondary to shock liver will continue to trend and follow-up ammonia level. Lab report patient positive for pneumococcal pneumonia, continued elevated WBC count. 06/27: Tmax during the night 102.0. The patient remains encephalopathic. Last evening the patient went into A. fib RVR with a heart rate in the 160s Cardizem bolus with initiation of infusion, with resolution during the night. Patient will be transition to by mouth Cardizem today. 3rd EEG performed, neurology following 2/2 possible brain edema noted on previous examination. 06/28: Tmax 101. 2 Remains encephalopathic .repeat EEG yesterday almost flat line, all sedation greater than 48-hours. Adjusted per neurology of severe anoxic brain injury. Family in discussions with palliative care team plan for ventilator withdrawal/comfort care measures after . Family is considering transferred to hospice medical facility and withdrawal and hospice facility. 06/29: Cooling blanket ordered / noted for elevated temperature. Patient remains encephalopathic. Patient was noted to have a sacral DTI opening is unstageable.Wound Care was consulted with recommendations implemented to include specialty bed. Patient noted to still have elevated glucose Levemir increased to 10 units BID. 06/30: TMax 100.5. Cooling blanket not applied, requested application of cooling blanket. Patient still currently on regular hospital bed, requested again specialty bed 2/2 sacral wounds. The patient continues to remain nonresponsive, no change in neurological status. Patient noted to have persistent leukocytosis currently on Vanc and Zosyn, will add levofloxacin to medication regimen. 07/01: Late entry note .Patient remains nonresponsive , no improvement in neurological status .Family in today, decision made to institute ventilator withdrawal/comfort care measures time this afternoon or evening upon arrival of all the family. Family decision not to transport to hospice, and sit to comfort care measures here at Hospital. Objective Vital Signs Date Time Temp Pulse Resp B/P (MAP) Pulse Ox O2 Delivery O2 Flow Rate FiO2 07/01/17 15:42 Room Air 07/01/17 12:27 100 40 07/01/17 06:00 84 07/01/17 04:00 97.8 19 139/80 (99) Intake and Output 07/01/17 07/01/17 07/02/17 08:00 16:00 00:00 Intake Total 613 ml Output Total 900 ml Balance -287 ml Result Diagram: 06/30/17 0433 07/01/17 0541 Imaging Last Impressions Chest X-Ray 06/30/17 0600 Signed Impressions: Service Date/Time: June 03:57 - CONCLUSION: Mild infiltrate and small effusion at the left lung base, slightly increased. Marko Spears MD Head CT 06/24/17 1108 Signed Impressions: Service Date/Time: Saturday, June 24, 2017 12:48 - CONCLUSION: 1. 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 2. No acute hemorrhage. Rosas Salmon MD Lower Extremity Ultrasound 06/24/17 0000 Signed Impressions: Service Date/Time: Saturday, June 24, 2017 17:17 - CONCLUSION: Negative exam with no evidence of deep venous thrombosis. Damián Purdy MD Abdomen Ultrasound 06/24/17 0000 Signed Impressions: Service Date/Time: Saturday, June 24, 2017 16:59 - CONCLUSION: 1. Gallbladder wall thickening and small amount of pericholecystic fluid with no evidence of cholelithiasis. The findings are nonspecific but could indicate possible acalculus cholecystitis. 2. The liver is enlarged with no focal abnormality. 3. Nonobstructing right renal calculus. Damián Purdy MD Last Impressions Chest X-Ray 06/26/17 0600 Signed Impressions: Service Date/Time: Monday, June 26, 2017 03:38 - CONCLUSION: No infiltrates seen. Christopher Mcknight MD Head CT 06/24/17 1108 Signed Impressions: Service Date/Time: Saturday, June 24, 2017 12:48 - CONCLUSION: 1. 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 2. No acute hemorrhage. Rosas Salmon MD Lower Extremity Ultrasound 06/24/17 0000 Signed Impressions: Service Date/Time: Saturday, June 24, 2017 17:17 - CONCLUSION: Negative exam with no evidence of deep venous thrombosis. Damián Purdy MD Abdomen Ultrasound 06/24/17 0000 Signed Impressions: Service Date/Time: Saturday, June 24, 2017 16:59 - CONCLUSION: 1. Gallbladder wall thickening and small amount of pericholecystic fluid with no evidence of cholelithiasis. The findings are nonspecific but could indicate possible acalculus cholecystitis. 2. The liver is enlarged with no focal abnormality. 3. Nonobstructing right renal calculus. Damián Purdy MD Last Impressions Chest X-Ray 06/25/17 0000 Signed Impressions: Service Date/Time: Sunday, June 25, 2017 03:18 - CONCLUSION: 1. ET tube tip 1.6 cm above the ricky and needs to be withdrawn 1 cm. 2. No infiltrate seen. Christopher Mcknight MD Head CT 06/24/17 1108 Signed Impressions: Service Date/Time: Saturday, June 24, 2017 12:48 - CONCLUSION: 1. 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 2. No acute hemorrhage. Rosas Salmon MD Lower Extremity Ultrasound 06/24/17 0000 Signed Impressions: Service Date/Time: Saturday, June 24, 2017 17:17 - CONCLUSION: Negative exam with no evidence of deep venous thrombosis. Damián Purdy MD Abdomen Ultrasound 06/24/17 0000 Signed Impressions: Service Date/Time: Saturday, June 24, 2017 16:59 - CONCLUSION: 1. Gallbladder wall thickening and small amount of pericholecystic fluid with no evidence of cholelithiasis. The findings are nonspecific but could indicate possible acalculus cholecystitis. 2. The liver is enlarged with no focal abnormality. 3. Nonobstructing right renal calculus. Damián Purdy MD Objective Remarks GENERAL: This is a middle-aged well-nourished well-developed critically ill female, currently orotracheally intubated, nonresponsive SKIN: Warm and dry. Tattoo on right lateral aspect of right leg. HEAD: Atraumatic. Normocephalic. EYES: Pupils equal and round about 7 mm bilaterally and nonreactive. No scleral icterus. No injection or drainage. ENT: No nasal bleeding or discharge. Mucous membranes pink and moist. NECK: Trachea midline. No JVD. CARDIOVASCULAR: Regular rate and rhythm. S1, S2. No S4. RESPIRATORY: No accessory muscle use. Clear to auscultation. Breath sounds equal bilaterally. GASTROINTESTINAL: Abdomen soft, non-tender, nondistended. Hypoactive bowel sounds noted MUSCULOSKELETAL: Extremities 1+peripheral edema. No obvious deformities. NEUROLOGICAL: GCS 3T on no sedation. Right pupil sluggishly reactive left pupil fixed. No gag. No corneal , lid reflex. Does not withdrawal to noxious stimulation. No clonus. Flacid extremities. Procedures 06/26 repeat EEG 06/27 repeat EEG 06/28 repeat EEG Date of Insertion: Jun 24, 2017 Line: Central Venous Catheter Side: Right Location: Internal, Jugular A/P Assessment and Plan Neuro/Psych: Likely anoxic brain injury Seizure disorder NOS Hx right parietal CVA History of polysubstance abuse - amphetamines and opiates urine drug screen All forms of sedatives, fentanyl discontinued 4 AM 06/26. 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 Loaded with levetiracetam 1 g followed by 500 mg IV twice a day Check Dilantin/valproic acid levels -subtherapeutic. Unknown current drug regimen. Neurology following- Dr. Clark 06/25 EEG -burst suppression pattern consistent with diffuse cerebral disturbance. Right arm posturing not consistent with brain activity. 06/26 repeat EEG -low amplitude possibly indicative of progressive brain edema 06/27 repeat EEG -severe encephalopathy versus anoxic encephalopathy, possible consideration of brain flow study Urine toxicology screen positive for amphetamines and opiates 06/27 ammonia level-28 CV: [facility] Severe sepsis History of AICD placement/ by Dr. Stinson Lactic acidosis QTC prolongation Right bundle branch block single chamber AICD History of severe nonischemic cardiopathy ejection fraction 20% Severe biventricular dysfunction History of recurrent V. fib arrest Elevated troponin New-onset A. fib RVR-resolved Etiology of cardiac arrest unclear. Given 2 mg lorazepam followed by code Due to 50 minute length of code not candidate for code cool On normal saline at 84 cc an hour. Goal to maintain mean artery pressure greater than 65 Serial lactates until clear. Currently 2.2 Serial troponins. Initially 0.04 -> 0.89->0.51 downtrending 06/25 2-D echo-moderate MR, ejection fraction less than 20%, trace TR, trace AR 06/25 EKG reveals normal sinus rhythm 88. Right bundle branch block. QTC 509' Son to obtain home medications. Noted she's been off all medications 3 weeks AICD has been interrogated. No shocks previously noted Previously on mexiletine 200 every 8, carvedilol and entresto 06/26-onset A. fib RVR, placed on Cardizem bolus with infusion. Transition to by mouth Cardizem 30mg QID 06/27- EKG Tentative plan to Deactivate ([employer])AICD upon decision of family for ventilator withdrawal by Palliative Care Ms. Lake Resp: Acute hypoxemic respiratory failure [facility] 16//08/12/39 Ventilator bundle Albuterol/ipratropium aerosols every 6 hours albuterol aerosols every 2 hours. Breathing trials if clinically indicated Very low likelihood PE. 06/26 chest x-ray-no acute process GI: Transaminitis OGT to LIWS Famotidine for GI prophylaxis Docusate sodium/senna 1 tablet twice a day for bowel regimen hepatitis panel pending Abdominal ultrasound revealed distended gallbladder without signs of cholecystitis. Enlarged liver. Right renal cyst Start Glucerna 1.5 goal 50 cc an hour for tube feeding Monitor LFTs ,06/26 continued elevation AST 111, ALT 102, alkaline phosphatase 118 : Fernandez catheter is indicated for accurate I's and O's in a critically ill patient Endo: Hyperglycemia Currently on sliding scale insulin with Accu-Cheks every 4 hours to maintain euglycemia/Novulin R medium protocol hemoglobin A1c 7.0 TSH 0.609 Random cortisol level- 52 Renal: Acute kidney injury Right renal cyst Monitor urine output Accurate I's and O's Monitor BMP -creatinine 1.7 Urine eosinophils negative. Abdominal ultrasound revealed no hydronephrosis. With low ejection fraction will gently diurese today. Heme: Persistent Leukocytosis Monitor CBC and coags daily. Follow trends Does not meet transfusion thresholds at this time Monitor WBC Febrile- central fevers?? Vancomycin ? or infectious Apply cooling blanket ID: Urine pneumococcal antigen positive Received vancomycin and piperacillin/tazobactam in ED. We'll continue piperacillin/tazobactam and vancomycin day #5 Blood cultures 2 no growth 06/24. Urine pneumococcal antigen positive Sputum- MRSA, H. influenza Febrile- central fevers?? Vancomycin ? or infectious Apply cooling blanket her temperature management MSK: PT evaluate and treat Daily functional maintenance Deep tissue injury-sacrum, continue to follow wound care recommendations Place patient on therapy or specialty bed FEN: Hypophosphatemia Replace electrolytes as clinically indicated Access - Utilize right IJ CVL day 06/24- 06/27 Prophylaxis - GI - famotidine - DVT - SCD/heparin subcutaneous Dispo: 06/27-Telephoned Damián Wasserman MARSHALL [phone] , provided an update in the patient's medical status to include pending EEG and current neurological assessment. Discussed with Ms. Anali Lake palliative care team, and [employer] at bedside. 06/28- Tentative plan for comfort care measures/ventilator withdrawal after per family request, to allow out of town family members to arrive. Consideration by family of transferring patient to hospice for ventilator withdrawal. This patient remains critically ill with one or more organ systems which are or may become a threat to life. I have spent in excess of 31 minutes discontinuously in the care and management of this patient. This time is exclusive of procedures, and includes, but is not limited to, evaluation of the patient, review of the medical record, discussions with family, consultants, nursing staff, or respiratory therapy, and documentation in the medical record. Physician Agnes Cohen MD Jul 01, 2017 18:46
[2017-07-02] MEDS: LORazepam 2 MG/ML VIAL IV PUSH SCH ×7 (05:15→19:58)
[2017-07-02 07:15] VITALS: BP 138/81; PULSE 97; RESP 22; O2SAT 93
[2017-07-02] MEDS: levETIRAcetam 1000 MG INJ 100 ML IV SCH ×2 (09:00→19:58)
[2017-07-02] MEDS: DOCUSATE SODIUM 50 MG/SENNA 8.6 MG TAB PO SCH ×2 (09:00→19:58)
--- NOTE | 2017-07-02 11:31 | HHI.CCPN ---
Subjective Remarks/Hospital Course Initial presentation to [facility] female middle-aged unknown name. She is brought into [facility] full cardiac arrest with ongoing CPR . Noted that information is obtained from ER physician. No family is available. Per EMS, records, they were called this patient's dressings due to a seizure of unknown duration.. Patient has history of seizures. EMS states they gave 2 mg of lorazepam to stop the active seizure at this time. Unfortunately, the patient went into cardiac arrest. ACLS was initiated by EMS. She received 3 doses of epinephrine and a dose of bicarbonate by EMS prior to arrival, with no change in her condition. EMS states they began ACLS protocol around 1010, with arrival to the emergency department around 1040. Patient received an additional 3 rounds of epinephrine and was intubated in the ED. ROSC at [address] 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 Lactic acid elevated 10.9. Troponin 0.04. White blood cell count 19,000. Blood sugar was greater than 400. Elevated transaminases. Patient is currently extending.. Pupils are fixed and dilated at 7 mm bilaterally. X-ray , notice implantable device. Due to likely multiple comorbid conditions patient is not candidate for code cool Subjective 06/25: Tmax 101.3. Currently afebrile. Withdrawals occasionally upper extremity's. Pupils remain around 7 mm and relatively fixed. No gag. Occasionally overbreathing the ventilator. Son will bring in medication list. Real name is Kamini Vela. She is 52. Her son also states that patient has been off medication 3 weeks. 06/26: Afebrile. Patient remains encephalopathic. Repeat EEG pending this a.m. Patient off sedatives since 4 AM. Noted continued elevated LFTs, most likely secondary to shock liver will continue to trend and follow-up ammonia level. Lab report patient positive for pneumococcal pneumonia, continued elevated WBC count. 06/27: Tmax during the night 102.0. The patient remains encephalopathic. Last evening the patient went into A. fib RVR with a heart rate in the 160s Cardizem bolus with initiation of infusion, with resolution during the night. Patient will be transition to by mouth Cardizem today. 3rd EEG performed, neurology following 2/2 possible brain edema noted on previous examination. 06/28: Tmax 101. 2 Remains encephalopathic .repeat EEG yesterday almost flat line, all sedation greater than 48-hours. Adjusted per neurology of severe anoxic brain injury. Family in discussions with palliative care team plan for ventilator withdrawal/comfort care measures after . Family is considering transferred to hospice medical facility and withdrawal and hospice facility. 06/29: Cooling blanket ordered / noted for elevated temperature. Patient remains encephalopathic. Patient was noted to have a sacral DTI opening is unstageable.Wound Care was consulted with recommendations implemented to include specialty bed. Patient noted to still have elevated glucose Levemir increased to 10 units BID. 06/30: TMax 100.5. Cooling blanket not applied, requested application of cooling blanket. Patient still currently on regular hospital bed, requested again specialty bed 2/2 sacral wounds. The patient continues to remain nonresponsive, no change in neurological status. Patient noted to have persistent leukocytosis currently on Vanc and Zosyn, will add levofloxacin to medication regimen. 07/01: Late entry note .Patient remains nonresponsive , no improvement in neurological status .Family in today, decision made to institute ventilator withdrawal/comfort care measures time this afternoon or evening upon arrival of all the family. Family decision not to transport to hospice, and sit to comfort care measures here at Hospital. 12/30: Withdrawal measures instituted yesterday afternoon. Family at bedside. Possible transfer to hospice care center today. Objective Vital Signs Date Time Temp Pulse Resp B/P (MAP) Pulse Ox O2 Delivery O2 Flow Rate FiO2 07/02/17 07:15 97 22 138/81 (100) 93 07/01/17 19:15 98.2 07/01/17 15:42 Room Air 07/01/17 12:27 40 Intake and Output 07/02/17 07/02/17 07/03/17 08:00 16:00 00:00 Output Total 1975 ml Balance -1975 ml Result Diagram: 06/30/17 0433 07/01/17 0541 Imaging Last Impressions Chest X-Ray 06/30/17 0600 Signed Impressions: Service Date/Time: June 03:57 - CONCLUSION: Mild infiltrate and small effusion at the left lung base, slightly increased. Marko Spears MD Head CT 06/24/17 1108 Signed Impressions: Service Date/Time: Saturday, June 24, 2017 12:48 - CONCLUSION: 1. 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 2. No acute hemorrhage. Rosas Salmon MD Lower Extremity Ultrasound 06/24/17 0000 Signed Impressions: Service Date/Time: Saturday, June 24, 2017 17:17 - CONCLUSION: Negative exam with no evidence of deep venous thrombosis. Damián Purdy MD Abdomen Ultrasound 06/24/17 0000 Signed Impressions: Service Date/Time: Saturday, June 24, 2017 16:59 - CONCLUSION: 1. Gallbladder wall thickening and small amount of pericholecystic fluid with no evidence of cholelithiasis. The findings are nonspecific but could indicate possible acalculus cholecystitis. 2. The liver is enlarged with no focal abnormality. 3. Nonobstructing right renal calculus. Damián Purdy MD Last Impressions Chest X-Ray 06/26/17 0600 Signed Impressions: Service Date/Time: Monday, June 26, 2017 03:38 - CONCLUSION: No infiltrates seen. Christopher Mcknight MD Head CT 06/24/17 1108 Signed Impressions: Service Date/Time: Saturday, June 24, 2017 12:48 - CONCLUSION: 1. 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 2. No acute hemorrhage. Rosas Salmon MD Lower Extremity Ultrasound 06/24/17 0000 Signed Impressions: Service Date/Time: Saturday, June 24, 2017 17:17 - CONCLUSION: Negative exam with no evidence of deep venous thrombosis. Damián Purdy MD Abdomen Ultrasound 06/24/17 0000 Signed Impressions: Service Date/Time: Saturday, June 24, 2017 16:59 - CONCLUSION: 1. Gallbladder wall thickening and small amount of pericholecystic fluid with no evidence of cholelithiasis. The findings are nonspecific but could indicate possible acalculus cholecystitis. 2. The liver is enlarged with no focal abnormality. 3. Nonobstructing right renal calculus. Damián Purdy MD Last Impressions Chest X-Ray 06/25/17 0000 Signed Impressions: Service Date/Time: Sunday, June 25, 2017 03:18 - CONCLUSION: 1. ET tube tip 1.6 cm above the ricky and needs to be withdrawn 1 cm. 2. No infiltrate seen. Christopher Mcknight MD Head CT 06/24/17 1108 Signed Impressions: Service Date/Time: Saturday, June 24, 2017 12:48 - CONCLUSION: 1. 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 2. No acute hemorrhage. Rosas Salmon MD Lower Extremity Ultrasound 06/24/17 0000 Signed Impressions: Service Date/Time: Saturday, June 24, 2017 17:17 - CONCLUSION: Negative exam with no evidence of deep venous thrombosis. Damián Purdy MD Abdomen Ultrasound 06/24/17 0000 Signed Impressions: Service Date/Time: Saturday, June 24, 2017 16:59 - CONCLUSION: 1. Gallbladder wall thickening and small amount of pericholecystic fluid with no evidence of cholelithiasis. The findings are nonspecific but could indicate possible acalculus cholecystitis. 2. The liver is enlarged with no focal abnormality. 3. Nonobstructing right renal calculus. Damián Purdy MD Objective Remarks GENERAL: This is a middle-aged well-nourished well-developed critically ill female, currently orotracheally intubated, nonresponsive SKIN: Warm and dry. Tattoo on right lateral aspect of right leg. HEAD: Atraumatic. Normocephalic. EYES: Pupils equal and round about 7 mm bilaterally and nonreactive. No scleral icterus. No injection or drainage. ENT: No nasal bleeding or discharge. Mucous membranes pink and moist. NECK: Trachea midline. No JVD. CARDIOVASCULAR: Regular rate and rhythm. Hr 96 RESPIRATORY: No accessory muscle use. Clear to auscultation. Breath sounds equal bilaterally. GASTROINTESTINAL: Abdomen soft, non-tender, nondistended. Hypoactive bowel sounds noted MUSCULOSKELETAL: Extremities 1+peripheral edema. No obvious deformities. NEUROLOGICAL: GCS 3T on no sedation. Right pupil sluggishly reactive left pupil fixed. No gag. No corneal , lid reflex. Does not withdrawal to noxious stimulation. No clonus. Flaccid extremities. Procedures 06/26 repeat EEG 06/27 repeat EEG 06/28 repeat EEG Date of Insertion: Jun 24, 2017 Line: Central Venous Catheter Side: Right Location: Internal, Jugular A/P Assessment and Plan Neuro/Psych: Likely anoxic brain injury Seizure disorder NOS Hx right parietal CVA History of polysubstance abuse - amphetamines and opiates urine drug screen All forms of sedatives, fentanyl discontinued 4 AM 06/26. 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 Loaded with levetiracetam 1 g followed by 500 mg IV twice a day Check Dilantin/valproic acid levels -subtherapeutic. Unknown current drug regimen. Neurology following- Dr. Clark 06/25 EEG -burst suppression pattern consistent with diffuse cerebral disturbance. Right arm posturing not consistent with brain activity. 06/26 repeat EEG -low amplitude possibly indicative of progressive brain edema 06/27 repeat EEG -severe encephalopathy versus anoxic encephalopathy, possible consideration of brain flow study Urine toxicology screen positive for amphetamines and opiates 06/27 ammonia level-28 CV: [facility] Severe sepsis History of AICD placement/ by Dr. Stinson Lactic acidosis QTC prolongation Right bundle branch block single chamber AICD History of severe nonischemic cardiopathy ejection fraction 20% Severe biventricular dysfunction History of recurrent V. fib arrest Elevated troponin New-onset A. fib RVR-resolved Etiology of cardiac arrest unclear. Given 2 mg lorazepam followed by code Due to 50 minute length of code not candidate for code cool On normal saline at 84 cc an hour. Goal to maintain mean artery pressure greater than 65 Serial lactates until clear. Currently 2.2 Serial troponins. Initially 0.04 -> 0.89->0.51 downtrending 06/25 2-D echo-moderate MR, ejection fraction less than 20%, trace TR, trace AR 06/25 EKG reveals normal sinus rhythm 88. Right bundle branch block. QTC 509' Son to obtain home medications. Noted she's been off all medications 3 weeks AICD has been interrogated. No shocks previously noted Previously on mexiletine 200 every 8, carvedilol and entresto 06/26-onset A. fib RVR, placed on Cardizem bolus with infusion. Transition to by mouth Cardizem 30mg QID 06/27- EKG Tentative plan to Deactivate ([employer])AICD upon decision of family for ventilator withdrawal by Palliative Care Ms. Lake 07/02 Ventilator Withdrawal Resp: Acute hypoxemic respiratory failure [facility] Ventilator bundle Albuterol/ipratropium aerosols every 6 hours albuterol aerosols every 2 hours. Breathing trials if clinically indicated Very low likelihood PE. 06/26 chest x-ray-no acute process GI: Transaminitis OGT to LIWS Famotidine for GI prophylaxis Docusate sodium/senna 1 tablet twice a day for bowel regimen hepatitis panel pending Abdominal ultrasound revealed distended gallbladder without signs of cholecystitis. Enlarged liver. Right renal cyst Start Glucerna 1.5 goal 50 cc an hour for tube feeding : Fernandez catheter is indicated for accurate I's and O's in a critically ill patient Endo: Hyperglycemia Currently on sliding scale insulin with Accu-Cheks every 4 hours to maintain euglycemia/Novulin R medium protocol hemoglobin A1c 7.0 TSH 0.609 Random cortisol level- 52 Renal: Acute kidney injury Right renal cyst Monitor urine output Accurate I's and O's Monitor BMP -creatinine 1.7 Urine eosinophils negative. Abdominal ultrasound revealed no hydronephrosis. With low ejection fraction will gently diurese today. Heme: Persistent Leukocytosis Monitor CBC and coags daily. Follow trends Does not meet transfusion thresholds at this time Monitor WBC Febrile- central fevers?? Vancomycin ? or infectious Apply cooling blanket ID: Urine pneumococcal antigen positive Received vancomycin and piperacillin/tazobactam in ED. We'll continue piperacillin/tazobactam and vancomycin day #5 Blood cultures 2 no growth 06/24. Urine pneumococcal antigen positive Sputum- MRSA, H. influenza Febrile- central fevers?? Vancomycin ? or infectious Apply cooling blanket her temperature management MSK: PT evaluate and treat Daily functional maintenance Deep tissue injury-sacrum, continue to follow wound care recommendations Place patient on therapy or specialty bed FEN: Hypophosphatemia Replace electrolytes as clinically indicated Access - Utilize right IJ CVL day 06/24- 06/27 Prophylaxis - GI - famotidine - DVT - SCD/heparin subcutaneous Dispo: 06/27-Telephoned Damián Wasserman MARSHALL [phone] , provided an update in the patient's medical status to include pending EEG and current neurological assessment. Discussed with Ms. Anali Lake palliative care team, and DOCTOR OF CHIROPRACT[employer] at bedside. 06/28- Tentative plan for comfort care measures/ventilator withdrawal after per family request, to allow out of town family members to arrive. Consideration by family of transferring patient to hospice for ventilator withdrawal. 07/02 : Ventilator withdrawal performed on 07/01 Level 2 Physician Agnes Cohen MD Jul 02, 2017 11:30
[2017-07-02 20:00] VITALS: BP 137/84; PULSE 101; RESP 25; TEMP 97.7; O2SAT 94
[2017-07-02 20:12] VITALS: PULSE 95
== END 2017-07-02 20:40 | disposition hospice, inpatient (51) | DRG 870 ==
LOC: NEPC 10:42 → EDBD 13:19 → NEDA 13:19 → HIMW 15:30
PROVIDERS: ADMIT Internal Medicine Critical Care Medicine; ATTEND Internal Medicine Critical Care Medicine
PROC: 5A1955Z Respiratory Ventilation, Greater than 96 Consecutive Hours (ICD-10-PCS; principal; 2017-06-24)
PROC: 05HM33Z Insertion of Infusion Device into Right Internal Jugular Vein, Percutaneous Approach (ICD-10-PCS; 2017-06-24)
PROC: 0BH17EZ Insertion of Endotracheal Airway into Trachea, Via Natural or Artificial Opening (ICD-10-PCS; 2017-06-24)
PROC: 0D9670Z Drainage of Stomach with Drainage Device, Via Natural or Artificial Opening (ICD-10-PCS; 2017-06-24)
PROC: 0T9B70Z Drainage of Bladder with Drainage Device, Via Natural or Artificial Opening (ICD-10-PCS; 2017-06-24)
DX: A41.9 Sepsis, unspecified organism (principal); I46.9 Cardiac arrest, cause unspecified; K72.00 Acute and subacute hepatic failure without coma; J96.01 Acute respiratory failure with hypoxia; G93.1 Anoxic brain damage, not elsewhere classified; L89.150 Pressure ulcer of sacral region, unstageable; I11.0 Hypertensive heart disease with heart failure; N17.9 Acute kidney failure, unspecified; I50.22 Chronic systolic (congestive) heart failure; E87.2 Acidosis; R65.20 Severe sepsis without septic shock; R56.9 Unspecified convulsions; E11.65 Type 2 diabetes mellitus with hyperglycemia; D64.9 Anemia, unspecified; Z86.73 Personal history of transient ischemic attack (TIA), and cerebral infarction without residual deficits; I45.10 Unspecified right bundle-branch block; Z95.810 Presence of automatic (implantable) cardiac defibrillator; Z79.4 Long term (current) use of insulin; I25.2 Old myocardial infarction; I48.91 Unspecified atrial fibrillation; I34.0 Nonrheumatic mitral (valve) insufficiency; F31.9 Bipolar disorder, unspecified; I25.5 Ischemic cardiomyopathy; Z91.19 Patient's noncompliance with other medical treatment and regimen; Z91.14 Patient's other noncompliance with medication regimen; Z51.5 Encounter for palliative care; Z66 Do not resuscitate; R74.8 Abnormal levels of other serum enzymes; N28.1 Cyst of kidney, acquired; E83.39 Other disorders of phosphorus metabolism
CPT/HCPCS: 31500; 36556; 36600; 51702; 70450; 71010; 76700; 76937; 80048; 80053; 80074; 80076; 80164; 80185; 80202; 80307; 81001; 82140; 82150; 82533; 82550; 82552; 82565; 82570; 82805; 82948; 83036; 83605; 83690; 83735; 84100; 84132; 84300; 84443; 84484; 85025; 85027; 85610; 85730; 86403; 87040; 87070; 87077; 87086; 87147; 87184; 87185; 87186; 87205; 87449; 87641; 87804; 92950; 93005; 93306; 93970; 94002; 94003; 94640; 94664; 95819; 96365; 96368; J0171; J0330; J0461; J1170; J1644; J1817; J1940; J1953; J1956; J1980; J2060; J2310; J2543; J3010; J3370; J3475; J3480; J7030; J7040; J7050; J7060